=== PATIENT | female | born 1945 | race Caucasian/White ===

== ENCOUNTER → 2018-06-20 09:28 | Outpatient (CLI) | payer MEDICARE, OTHER, SELFPAY | LOC: RAD 09:30 → RESP 10:01 | PROVIDERS: PCP Family Medicine; Visit Provider Podiatrist | DX: Z01.818 Encounter for other preprocedural examination (principal) | CPT/HCPCS: 93005 ==

== ENCOUNTER 2018-07-15 09:33 | Day surgery (SDC) | payer MEDICARE, OTHER, SELFPAY ==
[2018-07-01 09:03] VITALS: BMI 25.2
[2018-07-15] VITALS (9 sets, daily range): BP systolic 124–182; BP diastolic 56–83; PULSE 65–91; RESP 11–18; TEMP 36.4–36.9; O2SAT 95–99; BMI 25.2
[2018-07-15] MEDS: LACTATED RINGERS 1,000 ML 42 ML IV (10:00)
--- NOTE | 2018-07-15 11:28 | PM.PREOP ---
Pre-operative Note Interval Note Pre-op Check: Yes History & Physical Reviewed by Physician Changes: No
[2018-07-15] MEDS: CLINDAMYCIN 600 MG/50 ML PIGGYBACK 50 MG IV (11:32)
--- NOTE | 2018-07-15 12:07 | SUR.OPER ---
Supine on padded OR bed, head on pillow, arms secured on padded arm boards at <90 degrees abduction, legs uncrossed, safety belt at thigh, tape over blanket over right leg, left leg under control of surgeon. Bump under left hip.
[2018-07-15] MEDS: BUPIVACAINE 0.5% (PF) VIAL 30 ML INJ (12:16)
--- NOTE | 2018-07-15 13:09 | SUR.PHASEI ---
pre charted in error time into pacu 1300.
--- NOTE | 2018-07-15 13:18 | PM.OP.1 ---
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 Post-op diagnosis: same Procedure & Clinicians Procedure: Left midfoot exostectomy Left first metatarsophalangeal joint cheilectomy Same procedure as scheduled: Yes Surgeon: Cindy Craft Click Yes if Unassisted: Yes Anesthesia Type: General Operative Notes Closure Type: primary Specimen(s): none sent Estimated Blood Loss (mL): 20 Blood products transfused: none Procedure in detail: Patient was brought to the operating room and placed on the operating table in supine position after induction of general anesthesia the foot and ankle prepped and draped usual aseptic manner injectable anesthesia was performed to the midfoot and great toe joint. After the tourniquet was inflated incision was made over the dorsal aspect of the midfoot just slightly medial to midline over the area of suspected spurring. The incision was deepened through subcutaneous tissues being careful to identify and retract all vital neural and vascular structures. All bleeders were cauterized and ligated as necessary. Immediately there was an enlarged of spur noted at the tarsometatarsal joints 1 and 2. There was some thickening of the overlying ligamentous structures. The ligament was teased away from the underlying spur complex and using sharp debridement the spurs were able to be reduced significantly. The area was rasped and as it was loaded and appeared to be not impinging and certainly reduced in prominence. The area was irrigated with copious amounts of normal sterile saline. Attention was directed to the 1st metatarsophalangeal joint where incision was made over the dorsal medial aspect of the 1st metatarsophalangeal joint incision was deepened through subcutaneous tissues being careful to identify and retract all vital neurovascular structures. All bleeders were cauterized and ligated as necessary. The capsule was entered in the showed some spurring across the base of the proximal phalanx dorsally as well as the head of the metatarsal. This was reduced with a saw and smoothed with a rongeur and rasp the toe was moved and showed good mobility no clicking or grinding or popping. The area was irrigated with copious amounts of normal sterile saline. The tourniquet was deflated and prompt hyperemic response was seen to the foot. Deep closure was performed using 4 0 Vicryl subcutaneous as well, and 3 0 nylon to the skin on both. Dressing was placed over the foot with some light compression and she was transferred to the PACU with vital signs stable. Complications: none Condition: stable Disposition: PACU Plan for aftercare: Following a period of postoperative monitoring the patient be discharged home on written and oral postop instructions including keeping the dressing dry and intact avoiding ambulation to the foot although partial is okay, elevating the foot when seated at home. DVT prevention techniques have been reviewed. Her 1st postoperative visit will be dressing change with evaluation of the suture and likely it will remain at least to the mid foot for a period of 3 weeks time.
--- NOTE | 2018-07-15 14:04 | SUR.PHASEII ---
assumed care from Haleigh d/c instructions discussed with both pt and her . L foot in surgical shoe, feet warm, + capillary refill. ice to area and foot elevated. pt dressed when ready and left when ready and in stable condition.
== END 2018-07-15 14:10 | disposition home or self-care (01) ==
PROVIDERS: PCP Family Medicine; Visit Provider Podiatrist
PROC: (CPT 28289; principal; 2018-07-15 10:45)
DX: M19.072 Primary osteoarthritis, left ankle and foot (principal); I10 Essential (primary) hypertension; Z87.891 Personal history of nicotine dependence
CPT/HCPCS: 28289; 28122; J1100; J2405; J2704; J3010

== ENCOUNTER → 2019-02-01 07:05 | Outpatient (CLI) | payer MEDICARE, OTHER, SELFPAY ==
[2019-02-01 08:16] LABS: Add Manual Diff / Slide Review NO; Basophils Absolute Auto 0 /uL (0-100); Basophils Percent Auto 0.9 % (0-2); Eosinophils Absolute Auto 200 /uL (0-450); Eosinophils Percent Auto 4.7 % (2-4); Hematocrit 39.2 % (36-46); Hemoglobin 12.9 g/dL (12.0-16.0); Lymphocytes Absolute Auto 1000 /uL (1100-4500); Lymphocytes Percent Auto 21.3 % (25-40); Mean Corpuscular HGB Conc 32.8 % (30-36); Mean Corpuscular Hemoglobin 34.7 PG (26-34); Mean Corpuscular Volume 105.8 fL (80-100); Monocytes Absolute Auto 400 /uL (0-900); Neutrophils Absolute Auto 2900 /uL (1500-7000); Neutrophils Percent Auto 65.1 % (50-75); Platelet Count 170 X10^3/uL (150-400); Red Blood Cell Count 3.71 X10^6/uL (4.0-5.2); Red Cell Distribution Width 13.9 % (11.6-14.8); White Blood Cell Count 4.5 X10^3/uL (4.5-11.0)
[2019-02-01 08:29] LABS: BUN Creatinine Ratio 26.7 (6-22); Blood Urea Nitrogen 24 mg/dL (7-17); Calcium 9.4 mg/dL (8.4-10.2); Carbon Dioxide 29 mmol/L (22-32); Chloride 102 mmol/L (98-107); Cholesterol 220 mg/dL (140-199); Estimated Glomerular Filt Rate > 60.0 mL/min (>60); Glucose 88 mg/dL (80-110); HDL Cholesterol 78 mg/dL (40-60); HEMOLYSIS < 15 (0-50); LDL Cholesterol Calculated 107 mg/dL (<100); Potassium 5.1 mmol/L (3.4-5.1); Sodium 137 mmol/L (137-145); Triglycerides 174 mg/dL (35-150)
[2019-02-01 08:47] LABS: Vitamin D 25 Hydroxy (D3) 41.3 ng/mL (30.0-100.0)
[2019-02-01 08:49] LABS: Free T3, Triiodothyronine Free 5.41 pg/mL (2.77-5.27)
[2019-02-01 09:02] LABS: Thyroid Stimulating Hormone 1.72 uIU/mL (0.47-4.68)
== END ==
PROVIDERS: PCP Student in an Organized Health Care Education/Training Program; Visit Provider Student in an Organized Health Care Education/Training Program
DX: E03.9 Hypothyroidism, unspecified (principal); I10 Essential (primary) hypertension; E55.9 Vitamin D deficiency, unspecified; Z13.220 Encounter for screening for lipoid disorders
CPT/HCPCS: 36415; 80048; 80061; 82306; 84439; 84443; 84481; 85025

== ENCOUNTER → 2019-02-03 13:03 | Outpatient (CLI) | payer MEDICARE, OTHER, SELFPAY | PROVIDERS: PCP Student in an Organized Health Care Education/Training Program; Visit Provider Student in an Organized Health Care Education/Training Program | DX: Z13.820 Encounter for screening for osteoporosis (principal); M85.852 Other specified disorders of bone density and structure, left thigh; Z78.0 Asymptomatic menopausal state; Z85.3 Personal history of malignant neoplasm of breast; Z90.722 Acquired absence of ovaries, bilateral; E07.9 Disorder of thyroid, unspecified | CPT/HCPCS: 77080 ==

== ENCOUNTER → 2019-04-11 12:09 | Outpatient (CLI) | payer MEDICARE, OTHER, SELFPAY ==
--- NOTE | 2019-04-11 | DI.MG.S_ITS ---
BILATERAL DIGITAL SCREENING MAMMOGRAM 3D/2D WITH CAD: 04/11/2019 CLINICAL: Routine screening. Comparison is made to exams dated: 04/11/2019 mammogram, 04/09/2018 mammogram, and 03/29/2017 mammogram - [facility]. The tissue of both breasts is heterogeneously dense. This may lower the sensitivity of mammography. Current study was also evaluated with a Computer Aided Detection (CAD) system. There are benign calcifications in both breasts. There also is a benign biopsy clip in the left breast. No significant masses, calcifications, or other findings are seen in either breast. There has been no significant interval change. IMPRESSION: There is no mammographic evidence of malignancy. A 1 year screening mammogram is recommended. This exam was interpreted at Station ID: [id number]. NOTE: For mammograms, a report in lay terms will be sent to the patient. Approximately 15% of breast malignancies will not be visualized mammographically. In the management of a palpable breast mass, a negative mammogram must not discourage biopsy of a clinically suspicious lesion. Electronically Signed By: Nicanor rivas/haroon:04/11/2019 18:16:45 copy to: CEDRIC LARES letter sent: Normal Exam ACR BI-RADS Category 2: Benign Finding(s) 3342F
== END ==
PROVIDERS: PCP Student in an Organized Health Care Education/Training Program; Visit Provider Student in an Organized Health Care Education/Training Program
DX: Z12.31 Encounter for screening mammogram for malignant neoplasm of breast (principal)
CPT/HCPCS: 77063; 77067

== ENCOUNTER → 2019-05-04 07:02 | Outpatient (CLI) | payer MEDICARE, OTHER, SELFPAY ==
[2019-05-04 08:48] LABS: Alanine Aminotransferase 30 IU/L (9-52); Albumin 4.5 g/dL (3.5-5.0); Albumin Globulin Ratio 1.9 (1.0-2.8); Alkaline Phosphatase 93 U/L (38-126); Aspartate Aminotransferase 37 IU/L (14-36); Bilirubin Total 0.5 mg/dL (0.2-1.3); Bilirubin Unconjugated 0.3 mg/dL (0.0-1.1); Cholesterol 154 mg/dL (140-199); Globulin 2.4 g/dL (1.7-4.1); HDL Cholesterol 64 mg/dL (40-60); HEMOLYSIS < 15 (0-50); LDL Cholesterol Calculated 60 mg/dL (<100); Total Protein 6.9 g/dL (6.3-8.2); Triglycerides 148 mg/dL (35-150)
== END ==
PROVIDERS: PCP Student in an Organized Health Care Education/Training Program; Visit Provider Student in an Organized Health Care Education/Training Program
DX: E78.2 Mixed hyperlipidemia (principal); Z79.899 Other long term (current) drug therapy
CPT/HCPCS: 36415; 80061; 80076

== ENCOUNTER 2019-09-04 09:00 | Outpatient (RCR) | payer MEDICARE, OTHER, SELFPAY ==
--- NOTE | 2019-06-28 14:17 | PT.OIE ---
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) Osteoarthritis (Chronic) Osteoporosis (Chronic) Right foot drop (Chronic) Seasonal allergic reaction (Chronic) Thyroid disease (Chronic) Gout (Resolved) Past Surgical History (Last Updated 12/20/18 @ 20:54 by Jennifer Brooks) Dupuytrens contracture (Resolved ~2009) History of arthroplasty (Resolved ~2009) History of esophagogastroduodenoscopy (EGD) (Resolved) History of hysterectomy (Resolved) History of removal of cyst (Resolved) History of total right hip arthroplasty (Resolved) S/P BSO (bilateral salpingo-oophorectomy) (Resolved ~1981) Status post colonoscopy (Resolved ~2012) History of bilateral salpingo-oophorectomy (BSO) (~1975) History of spinal fusion (~1992) Status post breast biopsy (~1993) Status post breast reduction (~2012) Status post hysterectomy (~1975) Provider Visit Care Team Role Provider Type Alex Townsend MD Attending Provider Physician Primary Care Provider Specialty: Internal Medicine Address: [address] [place] [address] Email: Physical Therapy Initial Evaluation PT-OP-A Visit Information Start: 06/27/19 11:16 Freq: Status: Active Protocol: Document 06/27/19 11:17 [facility] (Rec: 06/27/19 11:27 [facility] [id number]) Out-Patient Physical Therapy Visit Information Visit Information Visit Type Initial Evaluation Visit Note 74 year old female with c/o L posterior gluteal and buttocks pain. She has had these symptoms off and on for the past few years and has had PT in the past which was helpful. In June 2018 she underwent left foot surgery to remove bone spurs. She had to use a rolling scooter during this time of non weight bearing. Symptoms in her left posterior hip started to worsen following the surgery and recovery afterwards Visit Start Time 11:15 Visit Stop Time 12:00 Total Visit Minutes 45 Visit Number 1 Evaluation Information Evaluation Date 06/27/19 PT-OP-B Current Condition Start: 06/27/19 11:16 Freq: Status: Active Protocol: Document 06/27/19 11:17 [facility] (Rec: 06/27/19 11:27 [facility] [id number]) Current Condition History of Current Condition Onset Date a few years onset History of Current Condition A few years ago Camryn [place], saw Dr. Rodriguez for the left knee as he had done her right KODY 2009, she had cortisone injections in the left knee, She was told to try PT for her hip. She currently walks 4 miles per day, it got better and then worse and then she went to PT again which helped. Since that time she underwent foot surgery on the left foot to remove bone spurs in June 2018. She used a scooter with her L LE resting on it for a period of 3 weeks. Her symptoms of posterior buttock pain have progressively worsened to where she cant sleep in the left side, cant walk more than 1/4 mile due to pain. She has to sit on ice following walking. Dr. Fish wants her to do cortisone injections. She has a appointment 07/26/[address] Kaur assistant speech language pathologist for a cortisone injetion. She is taking Alieve 2 times per day. Her pain is rated 7/10 in the posterior gluteals. She experiences increased pain with hip flexion. She reports walking up inclines is horrible and with inclines her pain can radiate to the anterior hip. She has a Hx of L5-S 1 herniated 1992 and surgery in then rehernaited in and surgery. Other past medical history includes thyroid disorder and osteoporosis. Treatment Goals Patient/Caregiver Goals The patients goals include decreasing pain and improving her ability to walk. She likes to go for regular walks for exercise and this is very impaired at this time. Prior Functional Status Baseline Function- ADL's Independent Baseline Function- Mobility Independent Current Functional Impairments (Reported) Functional Limitations- Other moderate difficulty walking 2 blocks, quite a bit of difficulty and pain walking a mile, moderate difficulty wtanding and sitting for a hour, unable to sleep on the left side due to pain PT-OP-F Manual Assessment Start: 06/27/19 11:16 Freq: Status: Active Protocol: Document 06/27/19 11:15 [facility] (Rec: 06/28/19 12:57 [facility] [email or web address]) Manual Assessments Soft Tissue Assessment Soft Tissue Mobility Assessment tightness of the piriformis, ITB and quadriceps on the left Joint Mobility Assessment Joint Mobility Assessment hypomobility of the left posterior hip capsule with decreased posterior glide Other Manual Assessments Other Manual Assessments Right leg longer in supine ( hx of right KODY) PT-OP-G Mobility & Gait Start: 06/27/19 11:16 Freq: Status: Active Protocol: Document 06/27/19 11:15 [facility] (Rec: 06/28/19 12:57 [facility] [email or web address]) OP Mobility Evaluation Bed Mobility Rolling pain with rolling on to her side and with sidelying to sit Supine to and from Sit painful but able to do the transfer Functional Movements Other Functional Movements pain with walking up/down stairs, needs to perform step to step pattern OP Gait Assessment Gait Gait Assistance Required: Independent Able to Maintain Weight Bearing Status Yes During Gait Gait Deviations General Gait Pattern Antalgic Decreased Stride Length Flexed Trunk Factors Limiting Gait Function Factors Limiting Gait Function Decreased Activity Tolerance Decreased Strength Pain Comments Gait Comments pain with gait in the left hip , I talked to Camryn today about using a walking stick or cane for her walks to off load her hip at this time until pain subsides Stair Climbing Evaluation Technique/Endurance Stair Climbing Direction Ascend and Descend Stair Climbing Technique Step to Step Comments Stair Climbing Comments pain with going up and down stairs in the left hip PT-OP-J Posture/Palpation/Skin Start: 06/27/19 11:16 Freq: Status: Active Protocol: Document 06/27/19 11:15 [facility] (Rec: 06/28/19 12:57 [facility] [email or web address]) Posture Evaluation Position Standing Evaluation View Lateral Head/C-Spine Posture Flexed Weight Distribution Weight Shifted Anterior Comments Posture Comments pt tends to stand with a forward lean Palpation Assessment Location Three Palpation Location left hip greater trochanter Palpation Findings Tenderness Two Palpation Location left piriformis Palpation Findings Soft Tissue Tightness Muscle Guarding Tenderness One Palpation Location left ITB proximal insertion Palpation Findings Soft Tissue Tightness Tenderness PT-OP-K Range of Motion Start: 06/27/19 11:16 Freq: Status: Active Protocol: Document 06/27/19 11:15 [facility] (Rec: 06/28/19 12:57 [facility] [email or web address]) Hip Goniometric Range of Motion Hip Right Hip ROM WFL No Flexion w/Knee Flexed 100 Straight Leg Raise 70 Extension 5 Left Hip ROM WFL No Testing Position Supine Flexion w/Knee Flexed 90 Straight Leg Raise 60 Extension 0 Hip ROM Limitations Hip ROM Limitations Soft Tissue Tightness Comments limited ROM into hip flexion left, tightness of the left posterior capsule, left iliopsoas tightness with + alessandro test , + Carrol test for ITB tightness PT-OP-L Special Tests Start: 06/27/19 11:16 Freq: Status: Active Protocol: Document 06/27/19 11:15 [facility] (Rec: 06/28/19 12:57 [facility] [email or web address]) Special Tests Hip Special Tests Obers test Test Results + left Comments ITB tightness Trendelenberg Test Results + Left Alessandro Test Results + Left PT-OP-M Strength Start: 06/27/19 11:16 Freq: Status: Active Protocol: Document 06/27/19 11:15 [facility] (Rec: 06/28/19 14:16 [facility] [email or web address]) Hip Strength Hip Manual Muscle Testing Right Flexion (L2) 4+ Good+ Extension (S1) 4 Good Abduction 4 Good External Rotation 4 Good Left Flexion (L2) 4 Good Extension (S1) 2+ Poor+ Abduction 2+ Poor+ External Rotation 2+ Poor+ Comments it is difficult for Camryn to activate the left gluteals. There is a visable difference in her gluteal muscle from the left to the right as she is atrophied on the left side. PT-OP-Q Treatments Start: 06/27/19 11:16 Freq: Status: Active Protocol: Document 06/27/19 11:15 [facility] (Rec: 06/28/19 14:16 [facility] [email or web address]) Therapeutic Exercises Supine Exercises 2 Supine Exercise Name single knee to chest stretch Side bilateral Reps/Minutes 2 x 30 sec + 1 Supine Exercise Name ITB stretch with a strap Side bilateral Reps/Minutes 2 x 30 sec+ Sidelying Exercises 1 Sidelying Exercise Name sidelying quad stretch Standing Exercises 1 Standing Exercise Name standing quad stretch using a chair for her foot Side bilateral Manual Therapy Treatment Soft Tissue Mobilization 1 Body Location left ITB, left piriformis Mobilization Type Myofascial Release Intensity/Depth Superficial Body Position Sidelying Comments MFR for left hip ITB tightness that is pulling on the left hip. Good tolerance for treatment today PT-OP-T Assessment and Plan Start: 06/27/19 11:16 Freq: Status: Active Protocol: Document 06/27/19 11:15 [facility] (Rec: 06/28/19 14:16 [facility] [email or web address]) Physical Therapy Assessment Rehab Potential Rehabilitation Potential Good Evaluation Complexity Number of Personal Factors/Comorbidities 0 Number of Body Systems Impaired 1-2 Clinical Presentation at Evaluation Stable Impairments Impairments Activity Tolerance Functional Activities Functional Mobility Gait Pain ROM Soft Tissue Mobility Strength Goals Five Impairment pain to palpation left bursa, greater trochanter, posterior gluteals Short Term Goal (STG) Camryn no longer c/o pain to palpation over the left bursa , greater trochanter, or gluteal musculature STG Duration 4 weeks Four Impairment Tightness of the ITB, piriformis, iliopsoas, quads on the left Short Term Goal (STG) Camryn is educated in a home stretching program to address the tightness in the left hip STG Duration 2-3 weeks Shop Tech Goal (LTG) Improve full painfree hip rom and improve length of the surrounding muscles to decrease pain LTG Duration 8 weeks Three Impairment Decreased left hip strength Senior Care Goal (LTG) Improve strength of the left hip to 4/5 or greater, especially the gluteals to improve support and improve function. Camryn is independent with a home exercise program for hip strengthening LTG Duration 8 weeks Two Impairment limited walking distance to 2 blocks Shop Tech Goal (LTG) Camryn is able to return to her goal of walking 2-3 miles without a increase in pain symptoms LTG Duration 8 weeks+ One Impairment L hip pain rated 7/10, worse walking and with inclines Short Term Goal (STG) Pt is using a walking stick or cane in the right hand to reduce pressure on the left hip and this helps to decrease pain from 7/10 to 4-5/10 STG Duration 3-4 weeks Senior Care Goal (LTG) With physical therapy manual techniques and hip stretching/ strengthening Camryn reports a reduction of pain to 2/10 or less. Assessment Summary Assessment Camryn presents to physical therapy today with left sided posterior hip pain in the gluteal region. She has experienced pain in this region before and has had PT which seemed to help her. This re-aggravation though is worse than it has been. Camryn had left foot surgery in June 2018 and she was non weight bearing on the left x 3 weeks using a scooter. She then progressed to a cane but it was after this time her left hip started hurting again. She likes to walk for exercise and she is very limited in how far she can walk right now due to pain. Her pain is rated 7/10 in the left hip. I did talk with Camryn today about using a walking stick or cane in the right hand for now to take off some of the pressure with walking and help to relieve pain until her symptoms resolve. With examination she is tender to palpation at the greater trochanter and bursea of the left hip, there is tightness in the ITB and piriformis muscles. Posterior capsule is tight. She is limited in strength of the left gluteal muscles and there is a visable difference in muscle bulk from the left to the right gluteal region when Camryn is laying in prone. She reports feeling as if it is difficult for her to activate her glutes. The iliopsoas and quads are also tight on the left as compared to the right. I did start with gentle stretches and MFR over the ITB today and Camryn tolerated this well. She is a good candidate for PT. Physical Therapy Plan Frequency and Duration Frequency of Treatment 2x/Week Duration of Treatment 8 Plan of Care Start Date 06/27/19 Plan of Care End Date 08/22/19 Therapeutic Interventions Therapeutic Interventions Home Exercise Program Joint Mobilizations Manual Therapy Patient/Caregiver Education Self-Care/Home Management Soft Tissue Mobilization Taping Therapeutic Exercises Modalities Cold Pack/Ice Massage Ultrasound Next Visit Focus/Plan Next Note Type Treatment Note Next Visit Plan review stretches for the ITB and quads, add in piriformis stretch and begin to start gluteus medius strengthening as tolerated, manual techniques to reduce tightness of the left ITB and piriformis
--- NOTE | 2019-06-29 18:43 | PT.OTN ---
Current Diagnoses Pain in left hip (06/29/19) Physical Therapy Treatment Note PT-OP-A Visit Information Start: 06/27/19 11:16 Freq: Status: Active Protocol: Document 06/29/19 14:30 HH (Rec: 06/29/19 18:43 HH [email or web address]) Out-Patient Physical Therapy Visit Information Visit Information Visit Type Treatment Note Visit Start Time 14:30 Visit Stop Time 15:15 Total Visit Minutes 45 Visit Number 0 PT-OP-B Current Condition Start: 06/27/19 11:16 Freq: Status: Active Protocol: Document 06/27/19 11:17 AMH (Rec: 06/27/19 11:27 AMH [id number]) Current Condition History of Current Condition Onset Date a few years onset History of Current Condition A few years ago Camryn [place], saw Dr. Rodriguez for the left knee as he had done her right KODY 2009, she had cortisone injections in the left knee, She was told to try PT for her hip. She currently walks 4 miles per day, it got better and then worse and then she went to PT again which helped. Since that time she underwent foot surgery on the left foot to remove bone spurs in June 2018. She used a scooter with her L LE resting on it for a period of 3 weeks. Her symptoms of posterior buttock pain have progressively worsened to where she cant sleep in the left side, cant walk more than 1/4 mile due to pain. She has to sit on ice following walking. Dr. Fish wants her to do cortisone injections. She has a appointment 07/26/[address] Kaur assistant dean for a cortisone injetion. She is taking Alieve 2 times per day. Her pain is rated 7/10 in the posterior gluteals. She experiences increased pain with hip flexion. She reports walking up inclines is horrible and with inclines her pain can radiate to the anterior hip. She has a Hx of L5-S 1 herniated 1992 and surgery in then rehernaited in and surgery. Other past medical history includes thyroid disorder and osteoporosis. Treatment Goals Patient/Caregiver Goals The patients goals include decreasing pain and improving her ability to walk. She likes to go for regular walks for exercise and this is very impaired at this time. Prior Functional Status Baseline Function- ADL's Independent Baseline Function- Mobility Independent Current Functional Impairments (Reported) Functional Limitations- Other moderate difficulty walking 2 blocks, quite a bit of difficulty and pain walking a mile, moderate difficulty wtanding and sitting for a hour, unable to sleep on the left side due to pain PT-OP-C Subjective Start: 06/27/19 11:16 Freq: Status: Active Protocol: Document 06/29/19 14:30 HH (Rec: 06/29/19 18:43 HH [email or web address]) OP-PT Subjective Patient Comments Patient Comments Soreness at my left hip and i have been doing my HEP stretches PT-OP-F Manual Assessment Start: 06/27/19 11:16 Freq: Status: Active Protocol: Document 06/27/19 11:15 AMH (Rec: 06/28/19 12:57 AMH [email or web address]) Manual Assessments Soft Tissue Assessment Soft Tissue Mobility Assessment tightness of the piriformis, ITB and quadriceps on the left Joint Mobility Assessment Joint Mobility Assessment hypomobility of the left posterior hip capsule with decreased posterior glide Other Manual Assessments Other Manual Assessments Right leg longer in supine ( hx of right KODY) PT-OP-G Mobility & Gait Start: 06/27/19 11:16 Freq: Status: Active Protocol: Document 06/27/19 11:15 AMH (Rec: 06/28/19 12:57 AMH [email or web address]) OP Mobility Evaluation Bed Mobility Rolling pain with rolling on to her side and with sidelying to sit Supine to and from Sit painful but able to do the transfer Functional Movements Other Functional Movements pain with walking up/down stairs, needs to perform step to step pattern OP Gait Assessment Gait Gait Assistance Required: Independent Able to Maintain Weight Bearing Status Yes During Gait Gait Deviations General Gait Pattern Antalgic Decreased Stride Length Flexed Trunk Factors Limiting Gait Function Factors Limiting Gait Function Decreased Activity Tolerance Decreased Strength Pain Comments Gait Comments pain with gait in the left hip , I talked to Camryn today about using a walking stick or cane for her walks to off load her hip at this time until pain subsides Stair Climbing Evaluation Technique/Endurance Stair Climbing Direction Ascend and Descend Stair Climbing Technique Step to Step Comments Stair Climbing Comments pain with going up and down stairs in the left hip PT-OP-J Posture/Palpation/Skin Start: 06/27/19 11:16 Freq: Status: Active Protocol: Document 06/27/19 11:15 AMH (Rec: 06/28/19 12:57 AMH [email or web address]) Posture Evaluation Position Standing Evaluation View Lateral Head/C-Spine Posture Flexed Weight Distribution Weight Shifted Anterior Comments Posture Comments pt tends to stand with a forward lean Palpation Assessment Location Three Palpation Location left hip greater trochanter Palpation Findings Tenderness Two Palpation Location left piriformis Palpation Findings Soft Tissue Tightness Muscle Guarding Tenderness One Palpation Location left ITB proximal insertion Palpation Findings Soft Tissue Tightness Tenderness PT-OP-K Range of Motion Start: 06/27/19 11:16 Freq: Status: Active Protocol: Document 06/27/19 11:15 AMH (Rec: 06/28/19 12:57 AMH [email or web address]) Hip Goniometric Range of Motion Hip Right Hip ROM WFL No Flexion w/Knee Flexed 100 Straight Leg Raise 70 Extension 5 Left Hip ROM WFL No Testing Position Supine Flexion w/Knee Flexed 90 Straight Leg Raise 60 Extension 0 Hip ROM Limitations Hip ROM Limitations Soft Tissue Tightness Comments limited ROM into hip flexion left, tightness of the left posterior capsule, left iliopsoas tightness with + alessandro test , + Carrol test for ITB tightness PT-OP-L Special Tests Start: 06/27/19 11:16 Freq: Status: Active Protocol: Document 06/27/19 11:15 AMH (Rec: 06/28/19 12:57 AMH [email or web address]) Special Tests Hip Special Tests Obers test Test Results + left Comments ITB tightness Trendelenberg Test Results + Left Alessandro Test Results + Left PT-OP-M Strength Start: 06/27/19 11:16 Freq: Status: Active Protocol: Document 06/27/19 11:15 AMH (Rec: 06/28/19 14:16 AMH [email or web address]) Hip Strength Hip Manual Muscle Testing Right Flexion (L2) 4+ Good+ Extension (S1) 4 Good Abduction 4 Good External Rotation 4 Good Left Flexion (L2) 4 Good Extension (S1) 2+ Poor+ Abduction 2+ Poor+ External Rotation 2+ Poor+ Comments it is difficult for Camryn to activate the left gluteals. There is a visable difference in her gluteal muscle from the left to the right as she is atrophied on the left side. PT-OP-Q Treatments Start: 06/27/19 11:16 Freq: Status: Active Protocol: Document 06/29/19 14:30 HH (Rec: 06/29/19 18:43 [email or web address]) Therapeutic Exercises Supine Exercises supine nerve glide Supine Exercise Name SLR + DF Side bilateral Reps/Minutes 8 x 2 2 Supine Exercise Name single knee to chest stretch Side bilateral Reps/Minutes 2 x 30 sec + Standing Exercises side step Equipment Used hurdles Reps/Minutes 5 rounds Comments cues to prevent R hip drop step up Side left Equipment Used 2 inch box Reps/Minutes 10 x 3 Comments cues to prevent R hip drop. single leg stance Side left Reps/Minutes 5 s x 5 set step over gait Standing Exercise Name within // bar Side bilateral Equipment Used hurdles Reps/Minutes 6 rounds Comments cues on heel strikes and prevent hip drop. step to Standing Exercise Name within // bar Side bilateral Equipment Used hurdles Reps/Minutes 6 rounds Comments cues on heel strikes and prevent hip drop. PT-OP-T Assessment and Plan Start: 06/27/19 11:16 Freq: Status: Active Protocol: Document 06/29/19 14:30 HH (Rec: 06/29/19 18:43 [email or web address]) Physical Therapy Assessment Assessment Summary Assessment pt demonstrates single leg balance : R= .10 s and L= 2s pre treatment. tx focused on single leg balance, gait training and step up to faciltiate L hip stabilizers activation. Pt denies discomfort and showed improved single leg balance on LLE > 10 s Physical Therapy Plan Next Visit Focus/Plan Next Note Type Treatment Note Next Visit Plan cont single leg balance ex as pina step up with hip control review stretches for the ITB and quads, add in piriformis stretch and begin to start gluteus medius strengthening as tolerated, manual techniques to reduce tightness of the left ITB and piriformis
--- NOTE | 2019-07-04 17:05 | PT.OTN ---
Current Diagnoses Pain in left hip (07/04/19) Physical Therapy Treatment Note PT-OP-A Visit Information Start: 06/27/19 11:16 Freq: Status: Active Protocol: Document 07/04/19 14:30 HH (Rec: 07/04/19 17:05 HH [email or web address]) Out-Patient Physical Therapy Visit Information Visit Information Visit Type Treatment Note Visit Start Time 14:30 Visit Stop Time 15:10 Total Visit Minutes 40 Visit Number 0 PT-OP-B Current Condition Start: 06/27/19 11:16 Freq: Status: Active Protocol: Document 06/27/19 11:17 AMH (Rec: 06/27/19 11:27 AMH [id number]) Current Condition History of Current Condition Onset Date a few years onset History of Current Condition A few years ago Camryn [place], saw Dr. Rodriguez for the left knee as he had done her right KODY 2009, she had cortisone injections in the left knee, She was told to try PT for her hip. She currently walks 4 miles per day, it got better and then worse and then she went to PT again which helped. Since that time she underwent foot surgery on the left foot to remove bone spurs in June 2018. She used a scooter with her L LE resting on it for a period of 3 weeks. Her symptoms of posterior buttock pain have progressively worsened to where she cant sleep in the left side, cant walk more than 1/4 mile due to pain. She has to sit on ice following walking. Dr. Fish wants her to do cortisone injections. She has a appointment 07/26/[address] Kaur vet assistant for a cortisone injetion. She is taking Alieve 2 times per day. Her pain is rated 7/10 in the posterior gluteals. She experiences increased pain with hip flexion. She reports walking up inclines is horrible and with inclines her pain can radiate to the anterior hip. She has a Hx of L5-S 1 herniated 1992 and surgery in then rehernaited in and surgery. Other past medical history includes thyroid disorder and osteoporosis. Treatment Goals Patient/Caregiver Goals The patients goals include decreasing pain and improving her ability to walk. She likes to go for regular walks for exercise and this is very impaired at this time. Prior Functional Status Baseline Function- ADL's Independent Baseline Function- Mobility Independent Current Functional Impairments (Reported) Functional Limitations- Other moderate difficulty walking 2 blocks, quite a bit of difficulty and pain walking a mile, moderate difficulty wtanding and sitting for a hour, unable to sleep on the left side due to pain PT-OP-C Subjective Start: 06/27/19 11:16 Freq: Status: Active Protocol: Document 07/04/19 14:30 HH (Rec: 07/04/19 17:05 HH [email or web address]) OP-PT Subjective Patient Comments Patient Comments I overdid my hip stretch and strained my muscles. I also felt sore after last visit but i have been working on my balancing ex. It has been getting a lot better. PT-OP-F Manual Assessment Start: 06/27/19 11:16 Freq: Status: Active Protocol: Document 06/27/19 11:15 AMH (Rec: 06/28/19 12:57 AMH [email or web address]) Manual Assessments Soft Tissue Assessment Soft Tissue Mobility Assessment tightness of the piriformis, ITB and quadriceps on the left Joint Mobility Assessment Joint Mobility Assessment hypomobility of the left posterior hip capsule with decreased posterior glide Other Manual Assessments Other Manual Assessments Right leg longer in supine ( hx of right KODY) PT-OP-G Mobility & Gait Start: 06/27/19 11:16 Freq: Status: Active Protocol: Document 06/27/19 11:15 AMH (Rec: 06/28/19 12:57 AMH [email or web address]) OP Mobility Evaluation Bed Mobility Rolling pain with rolling on to her side and with sidelying to sit Supine to and from Sit painful but able to do the transfer Functional Movements Other Functional Movements pain with walking up/down stairs, needs to perform step to step pattern OP Gait Assessment Gait Gait Assistance Required: Independent Able to Maintain Weight Bearing Status Yes During Gait Gait Deviations General Gait Pattern Antalgic Decreased Stride Length Flexed Trunk Factors Limiting Gait Function Factors Limiting Gait Function Decreased Activity Tolerance Decreased Strength Pain Comments Gait Comments pain with gait in the left hip , I talked to Camryn today about using a walking stick or cane for her walks to off load her hip at this time until pain subsides Stair Climbing Evaluation Technique/Endurance Stair Climbing Direction Ascend and Descend Stair Climbing Technique Step to Step Comments Stair Climbing Comments pain with going up and down stairs in the left hip PT-OP-J Posture/Palpation/Skin Start: 06/27/19 11:16 Freq: Status: Active Protocol: Document 06/27/19 11:15 AMH (Rec: 06/28/19 12:57 AMH [email or web address]) Posture Evaluation Position Standing Evaluation View Lateral Head/C-Spine Posture Flexed Weight Distribution Weight Shifted Anterior Comments Posture Comments pt tends to stand with a forward lean Palpation Assessment Location Three Palpation Location left hip greater trochanter Palpation Findings Tenderness Two Palpation Location left piriformis Palpation Findings Soft Tissue Tightness Muscle Guarding Tenderness One Palpation Location left ITB proximal insertion Palpation Findings Soft Tissue Tightness Tenderness PT-OP-K Range of Motion Start: 06/27/19 11:16 Freq: Status: Active Protocol: Document 06/27/19 11:15 AMH (Rec: 06/28/19 12:57 AMH [email or web address]) Hip Goniometric Range of Motion Hip Right Hip ROM WFL No Flexion w/Knee Flexed 100 Straight Leg Raise 70 Extension 5 Left Hip ROM WFL No Testing Position Supine Flexion w/Knee Flexed 90 Straight Leg Raise 60 Extension 0 Hip ROM Limitations Hip ROM Limitations Soft Tissue Tightness Comments limited ROM into hip flexion left, tightness of the left posterior capsule, left iliopsoas tightness with + alessandro test , + Carrol test for ITB tightness PT-OP-L Special Tests Start: 06/27/19 11:16 Freq: Status: Active Protocol: Document 06/27/19 11:15 AMH (Rec: 06/28/19 12:57 AMH [email or web address]) Special Tests Hip Special Tests Obers test Test Results + left Comments ITB tightness Trendelenberg Test Results + Left Alessandro Test Results + Left PT-OP-M Strength Start: 06/27/19 11:16 Freq: Status: Active Protocol: Document 06/27/19 11:15 AMH (Rec: 06/28/19 14:16 AMH [email or web address]) Hip Strength Hip Manual Muscle Testing Right Flexion (L2) 4+ Good+ Extension (S1) 4 Good Abduction 4 Good External Rotation 4 Good Left Flexion (L2) 4 Good Extension (S1) 2+ Poor+ Abduction 2+ Poor+ External Rotation 2+ Poor+ Comments it is difficult for Camryn to activate the left gluteals. There is a visable difference in her gluteal muscle from the left to the right as she is atrophied on the left side. PT-OP-Q Treatments Start: 06/27/19 11:16 Freq: Status: Active Protocol: Document 07/04/19 14:30 (Rec: 07/04/19 17:05 [email or web address]) Therapeutic Exercises Supine Exercises piriformis stretch Supine Exercise Name passive hip adduction Side left Reps/Minutes 10secs hold x 5 2 Supine Exercise Name single knee to chest stretch Side bilateral Reps/Minutes 2 x 30 sec + Standing Exercises side step Equipment Used hurdles Reps/Minutes 5 rounds Comments cues to prevent R hip drop step up Side left Equipment Used 2 inch box Reps/Minutes 10 x 3 Comments cues to prevent R hip drop. single leg stance Side left Reps/Minutes 5 s x 5 set step over gait Standing Exercise Name within // bar Side bilateral Equipment Used hurdles Reps/Minutes 6 rounds Comments cues on heel strikes and prevent hip drop. step to Standing Exercise Name within // bar Side bilateral Equipment Used hurdles Reps/Minutes 6 rounds Comments cues on heel strikes and prevent hip drop. Manual Therapy Treatment Manual Techniques seated sciatic nerve glide Body Position Sitting Reps/Duration 10 x2 Comments with knee ext and ankle DF sciatic nerve glide 1 Type hip at 90, knee ext and ankle DF Body Position Supine Reps/Duration 10 x2 PT-OP-T Assessment and Plan Start: 06/27/19 11:16 Freq: Status: Active Protocol: Document 07/04/19 14:30 (Rec: 07/04/19 17:05 [email or web address]) Physical Therapy Assessment Goals Five Impairment pain to palpation left bursa, greater trochanter, posterior gluteals Short Term Goal (STG) Camryn no longer c/o pain to palpation over the left bursa , greater trochanter, or gluteal musculature STG Duration 4 weeks Four Impairment Tightness of the ITB, piriformis, iliopsoas, quads on the left Short Term Goal (STG) Camryn is educated in a home stretching program to address the tightness in the left hip STG Duration 2-3 weeks Usp Goal (LTG) Improve full painfree hip rom and improve length of the surrounding muscles to decrease pain LTG Duration 8 weeks Three Impairment Decreased left hip strength Telecommunications Consultant Goal (LTG) Improve strength of the left hip to 4/5 or greater, especially the gluteals to improve support and improve function. Camryn is independent with a home exercise program for hip strengthening LTG Duration 8 weeks Two Impairment limited walking distance to 2 blocks Telecommunications Consultant Goal (LTG) Camryn is able to return to her goal of walking 2-3 miles without a increase in pain symptoms LTG Duration 8 weeks+ One Impairment L hip pain rated 7/10, worse walking and with inclines Short Term Goal (STG) Pt is using a walking stick or cane in the right hand to reduce pressure on the left hip and this helps to decrease pain from 7/10 to 4-5/10 STG Duration 3-4 weeks Telecommunications Consultant Goal (LTG) With physical therapy manual techniques and hip stretching/ strengthening Camryn reports a reduction of pain to 2/10 or less. Assessment Summary Assessment Pt reports slight soreness at her L hip at the end of session. However, her SLS improves to ~15 to 20 secs on each LE. Improved performance on hurdles also noted. Physical Therapy Plan Next Visit Focus/Plan Next Note Type Treatment Note Next Visit Plan cont single leg balance ex as pina step up with hip control review stretches for the ITB and quads, add in piriformis stretch and begin to start gluteus medius strengthening as tolerated, manual techniques to reduce tightness of the left ITB and piriformis
--- NOTE | 2019-07-06 16:21 | PT.OTN ---
Current Diagnoses Pain in left hip (07/06/19) Physical Therapy Treatment Note PT-OP-A Visit Information Start: 06/27/19 11:16 Freq: Status: Active Protocol: Document 07/06/19 14:30 HH (Rec: 07/06/19 16:19 HH [email or web address]) Out-Patient Physical Therapy Visit Information Visit Information Visit Type Treatment Note Visit Start Time 14:30 Visit Stop Time 15:10 Total Visit Minutes 40 Visit Number 4 PT-OP-B Current Condition Start: 06/27/19 11:16 Freq: Status: Active Protocol: Document 06/27/19 11:17 AMH (Rec: 06/27/19 11:27 AMH [id number]) Current Condition History of Current Condition Onset Date a few years onset History of Current Condition A few years ago Camryn [place], saw Dr. Rodriguez for the left knee as he had done her right KODY 2009, she had cortisone injections in the left knee, She was told to try PT for her hip. She currently walks 4 miles per day, it got better and then worse and then she went to PT again which helped. Since that time she underwent foot surgery on the left foot to remove bone spurs in June 2018. She used a scooter with her L LE resting on it for a period of 3 weeks. Her symptoms of posterior buttock pain have progressively worsened to where she cant sleep in the left side, cant walk more than 1/4 mile due to pain. She has to sit on ice following walking. Dr. Fish wants her to do cortisone injections. She has a appointment 07/26/[address] Kaur assistant plant manager for a cortisone injetion. She is taking Alieve 2 times per day. Her pain is rated 7/10 in the posterior gluteals. She experiences increased pain with hip flexion. She reports walking up inclines is horrible and with inclines her pain can radiate to the anterior hip. She has a Hx of L5-S 1 herniated 1992 and surgery in then rehernaited in and surgery. Other past medical history includes thyroid disorder and osteoporosis. Treatment Goals Patient/Caregiver Goals The patients goals include decreasing pain and improving her ability to walk. She likes to go for regular walks for exercise and this is very impaired at this time. Prior Functional Status Baseline Function- ADL's Independent Baseline Function- Mobility Independent Current Functional Impairments (Reported) Functional Limitations- Other moderate difficulty walking 2 blocks, quite a bit of difficulty and pain walking a mile, moderate difficulty wtanding and sitting for a hour, unable to sleep on the left side due to pain PT-OP-C Subjective Start: 06/27/19 11:16 Freq: Status: Active Protocol: Document 07/06/19 14:30 HH (Rec: 07/06/19 16:19 HH [email or web address]) OP-PT Subjective Patient Comments Patient Comments I walked 2 miles today with slopes and it did not bother my L hip. Aundrea been doing my single leg stance ex and it helps. PT-OP-F Manual Assessment Start: 06/27/19 11:16 Freq: Status: Active Protocol: Document 06/27/19 11:15 AMH (Rec: 06/28/19 12:57 AMH [email or web address]) Manual Assessments Soft Tissue Assessment Soft Tissue Mobility Assessment tightness of the piriformis, ITB and quadriceps on the left Joint Mobility Assessment Joint Mobility Assessment hypomobility of the left posterior hip capsule with decreased posterior glide Other Manual Assessments Other Manual Assessments Right leg longer in supine ( hx of right KODY) PT-OP-G Mobility & Gait Start: 06/27/19 11:16 Freq: Status: Active Protocol: Document 06/27/19 11:15 AMH (Rec: 06/28/19 12:57 AMH [email or web address]) OP Mobility Evaluation Bed Mobility Rolling pain with rolling on to her side and with sidelying to sit Supine to and from Sit painful but able to do the transfer Functional Movements Other Functional Movements pain with walking up/down stairs, needs to perform step to step pattern OP Gait Assessment Gait Gait Assistance Required: Independent Able to Maintain Weight Bearing Status Yes During Gait Gait Deviations General Gait Pattern Antalgic Decreased Stride Length Flexed Trunk Factors Limiting Gait Function Factors Limiting Gait Function Decreased Activity Tolerance Decreased Strength Pain Comments Gait Comments pain with gait in the left hip , I talked to Camryn today about using a walking stick or cane for her walks to off load her hip at this time until pain subsides Stair Climbing Evaluation Technique/Endurance Stair Climbing Direction Ascend and Descend Stair Climbing Technique Step to Step Comments Stair Climbing Comments pain with going up and down stairs in the left hip PT-OP-J Posture/Palpation/Skin Start: 06/27/19 11:16 Freq: Status: Active Protocol: Document 06/27/19 11:15 AMH (Rec: 06/28/19 12:57 AMH [email or web address]) Posture Evaluation Position Standing Evaluation View Lateral Head/C-Spine Posture Flexed Weight Distribution Weight Shifted Anterior Comments Posture Comments pt tends to stand with a forward lean Palpation Assessment Location Three Palpation Location left hip greater trochanter Palpation Findings Tenderness Two Palpation Location left piriformis Palpation Findings Soft Tissue Tightness Muscle Guarding Tenderness One Palpation Location left ITB proximal insertion Palpation Findings Soft Tissue Tightness Tenderness PT-OP-K Range of Motion Start: 06/27/19 11:16 Freq: Status: Active Protocol: Document 06/27/19 11:15 AMH (Rec: 06/28/19 12:57 AMH [email or web address]) Hip Goniometric Range of Motion Hip Right Hip ROM WFL No Flexion w/Knee Flexed 100 Straight Leg Raise 70 Extension 5 Left Hip ROM WFL No Testing Position Supine Flexion w/Knee Flexed 90 Straight Leg Raise 60 Extension 0 Hip ROM Limitations Hip ROM Limitations Soft Tissue Tightness Comments limited ROM into hip flexion left, tightness of the left posterior capsule, left iliopsoas tightness with + alessandro test , + Carrol test for ITB tightness PT-OP-L Special Tests Start: 06/27/19 11:16 Freq: Status: Active Protocol: Document 06/27/19 11:15 AMH (Rec: 06/28/19 12:57 AMH [email or web address]) Special Tests Hip Special Tests Obers test Test Results + left Comments ITB tightness Trendelenberg Test Results + Left Alessandro Test Results + Left PT-OP-M Strength Start: 06/27/19 11:16 Freq: Status: Active Protocol: Document 06/27/19 11:15 AMH (Rec: 06/28/19 14:16 AMH [email or web address]) Hip Strength Hip Manual Muscle Testing Right Flexion (L2) 4+ Good+ Extension (S1) 4 Good Abduction 4 Good External Rotation 4 Good Left Flexion (L2) 4 Good Extension (S1) 2+ Poor+ Abduction 2+ Poor+ External Rotation 2+ Poor+ Comments it is difficult for Camryn to activate the left gluteals. There is a visable difference in her gluteal muscle from the left to the right as she is atrophied on the left side. PT-OP-Q Treatments Start: 06/27/19 11:16 Freq: Status: Active Protocol: Document 07/06/19 14:30 HH (Rec: 07/06/19 16:19 HH [email or web address]) Therapeutic Exercises Supine Exercises piriformis stretch Supine Exercise Name passive hip adduction Side left Reps/Minutes 10secs hold x 5 supine nerve glide Supine Exercise Name SLR + DF Side bilateral Reps/Minutes 8 x 2 Standing Exercises hip hike Side bilateral Equipment Used 4inch step Reps/Minutes 8 x 4 Comments cues on hip hike and gluteal engagement Indonesian deadlift Standing Exercise Name hip hinge with single leg stance Side bilateral Equipment Used within //bar Reps/Minutes 5x 4 Comments cues on hip hinge side step Equipment Used hurdles Reps/Minutes 5 rounds Comments cues to prevent R hip drop step up Side left Equipment Used 2 inch box, blue and green foam Reps/Minutes 10 x 3 Comments cues to prevent R hip drop. single leg stance Side bilateral Equipment Used blue and green foam Reps/Minutes 15s x 5 set PT-OP-T Assessment and Plan Start: 06/27/19 11:16 Freq: Status: Active Protocol: Document 07/06/19 14:30 HH (Rec: 07/06/19 16:19 [email or web address]) Physical Therapy Assessment Assessment Summary Assessment Pt progressed very well with increased activity level with less L hip pain. Her single leg balance cont improves up to >20 s. Introduced single leg hip hinge and hip hike on stool to facilitate eccentric control and single leg stability. Physical Therapy Plan Next Visit Focus/Plan Next Note Type Treatment Note Next Visit Plan cont single leg balance ex as pina step up with hip control review stretches for the ITB and quads, add in piriformis stretch and begin to start gluteus medius strengthening as tolerated, manual techniques to reduce tightness of the left ITB and piriformis
--- NOTE | 2019-07-10 08:15 | PT.OTN ---
Current Diagnoses Pain in left hip (07/10/19) Physical Therapy Treatment Note PT-OP-A Visit Information Start: 06/27/19 11:16 Freq: Status: Active Protocol: Document 07/10/19 08:14 SAK (Rec: 07/10/19 09:04 SAK [email or web address]) Out-Patient Physical Therapy Visit Information Visit Information Visit Type Treatment Note Visit Start Time 08:15 Visit Stop Time 09:00 Total Visit Minutes 45 Visit Number 5 Evaluation Information Evaluation Date 06/27/19 PT-OP-B Current Condition Start: 06/27/19 11:16 Freq: Status: Active Protocol: Document 06/27/19 11:17 AMH (Rec: 06/27/19 11:27 AMH [id number]) Current Condition History of Current Condition Onset Date a few years onset History of Current Condition A few years ago Camryn [place], saw Dr. Rodriguez for the left knee as he had done her right KODY 2009, she had cortisone injections in the left knee, She was told to try PT for her hip. She currently walks 4 miles per day, it got better and then worse and then she went to PT again which helped. Since that time she underwent foot surgery on the left foot to remove bone spurs in June 2018. She used a scooter with her L LE resting on it for a period of 3 weeks. Her symptoms of posterior buttock pain have progressively worsened to where she cant sleep in the left side, cant walk more than 1/4 mile due to pain. She has to sit on ice following walking. Dr. Fish wants her to do cortisone injections. She has a appointment 07/26/[address] Kaur assistant quality manager for a cortisone injetion. She is taking Alieve 2 times per day. Her pain is rated 7/10 in the posterior gluteals. She experiences increased pain with hip flexion. She reports walking up inclines is horrible and with inclines her pain can radiate to the anterior hip. She has a Hx of L5-S 1 herniated 1992 and surgery in then rehernaited in and surgery. Other past medical history includes thyroid disorder and osteoporosis. Treatment Goals Patient/Caregiver Goals The patients goals include decreasing pain and improving her ability to walk. She likes to go for regular walks for exercise and this is very impaired at this time. Prior Functional Status Baseline Function- ADL's Independent Baseline Function- Mobility Independent Current Functional Impairments (Reported) Functional Limitations- Other moderate difficulty walking 2 blocks, quite a bit of difficulty and pain walking a mile, moderate difficulty wtanding and sitting for a hour, unable to sleep on the left side due to pain PT-OP-C Subjective Start: 06/27/19 11:16 Freq: Status: Active Protocol: Document 07/10/19 08:14 SAK (Rec: 07/10/19 09:04 SAK [id number]) OP-PT Subjective Patient Comments Patient Comments Can't sleep on left side, that is usual side. Walking better, still has aching at end of day. 1-2 Alleve per day. PT-OP-F Manual Assessment Start: 06/27/19 11:16 Freq: Status: Active Protocol: Document 06/27/19 11:15 AMH (Rec: 06/28/19 12:57 AMH [email or web address]) Manual Assessments Soft Tissue Assessment Soft Tissue Mobility Assessment tightness of the piriformis, ITB and quadriceps on the left Joint Mobility Assessment Joint Mobility Assessment hypomobility of the left posterior hip capsule with decreased posterior glide Other Manual Assessments Other Manual Assessments Right leg longer in supine ( hx of right KODY) PT-OP-G Mobility & Gait Start: 06/27/19 11:16 Freq: Status: Active Protocol: Document 06/27/19 11:15 AMH (Rec: 06/28/19 12:57 AMH [email or web address]) OP Mobility Evaluation Bed Mobility Rolling pain with rolling on to her side and with sidelying to sit Supine to and from Sit painful but able to do the transfer Functional Movements Other Functional Movements pain with walking up/down stairs, needs to perform step to step pattern OP Gait Assessment Gait Gait Assistance Required: Independent Able to Maintain Weight Bearing Status Yes During Gait Gait Deviations General Gait Pattern Antalgic Decreased Stride Length Flexed Trunk Factors Limiting Gait Function Factors Limiting Gait Function Decreased Activity Tolerance Decreased Strength Pain Comments Gait Comments pain with gait in the left hip , I talked to Camryn today about using a walking stick or cane for her walks to off load her hip at this time until pain subsides Stair Climbing Evaluation Technique/Endurance Stair Climbing Direction Ascend and Descend Stair Climbing Technique Step to Step Comments Stair Climbing Comments pain with going up and down stairs in the left hip PT-OP-J Posture/Palpation/Skin Start: 06/27/19 11:16 Freq: Status: Active Protocol: Document 06/27/19 11:15 AMH (Rec: 06/28/19 12:57 AMH [email or web address]) Posture Evaluation Position Standing Evaluation View Lateral Head/C-Spine Posture Flexed Weight Distribution Weight Shifted Anterior Comments Posture Comments pt tends to stand with a forward lean Palpation Assessment Location Three Palpation Location left hip greater trochanter Palpation Findings Tenderness Two Palpation Location left piriformis Palpation Findings Soft Tissue Tightness Muscle Guarding Tenderness One Palpation Location left ITB proximal insertion Palpation Findings Soft Tissue Tightness Tenderness PT-OP-K Range of Motion Start: 06/27/19 11:16 Freq: Status: Active Protocol: Document 06/27/19 11:15 AMH (Rec: 06/28/19 12:57 AMH [email or web address]) Hip Goniometric Range of Motion Hip Right Hip ROM WFL No Flexion w/Knee Flexed 100 Straight Leg Raise 70 Extension 5 Left Hip ROM WFL No Testing Position Supine Flexion w/Knee Flexed 90 Straight Leg Raise 60 Extension 0 Hip ROM Limitations Hip ROM Limitations Soft Tissue Tightness Comments limited ROM into hip flexion left, tightness of the left posterior capsule, left iliopsoas tightness with + alessandro test , + Carrol test for ITB tightness PT-OP-L Special Tests Start: 06/27/19 11:16 Freq: Status: Active Protocol: Document 06/27/19 11:15 AMH (Rec: 06/28/19 12:57 AMH [email or web address]) Special Tests Hip Special Tests Obers test Test Results + left Comments ITB tightness Trendelenberg Test Results + Left Alessandro Test Results + Left PT-OP-M Strength Start: 06/27/19 11:16 Freq: Status: Active Protocol: Document 06/27/19 11:15 AMH (Rec: 06/28/19 14:16 AMH [email or web address]) Hip Strength Hip Manual Muscle Testing Right Flexion (L2) 4+ Good+ Extension (S1) 4 Good Abduction 4 Good External Rotation 4 Good Left Flexion (L2) 4 Good Extension (S1) 2+ Poor+ Abduction 2+ Poor+ External Rotation 2+ Poor+ Comments it is difficult for Camryn to activate the left gluteals. There is a visable difference in her gluteal muscle from the left to the right as she is atrophied on the left side. PT-OP-Q Treatments Start: 06/27/19 11:16 Freq: Status: Active Protocol: Document 07/10/19 08:14 [facility] (Rec: 07/10/19 09:04 [facility] [id number]) Cardio Equipment Recumbent Stepper (Sci-Fit) Duration (Minutes) 8 Seat Position 11 Other 2 min UE's and LE's, 3 min LE' s Therapeutic Exercises Supine Exercises piriformis stretch Supine Exercise Name passive hip adduction Side left Reps/Minutes 10secs hold x 5 supine nerve glide Supine Exercise Name SLR + DF Side bilateral Reps/Minutes 8 x 2 2 Supine Exercise Name single knee to chest stretch Side bilateral Reps/Minutes 2 x 30 sec + Standing Exercises hip hike Side bilateral Equipment Used 4inch step Reps/Minutes 8 x 4 Comments cues on hip hike and gluteal engagement Chinese deadlift Standing Exercise Name hip hinge with single leg stance Side bilateral Equipment Used within //bar Reps/Minutes 5x 4 Comments cues on hip hinge side step Equipment Used hurdles Reps/Minutes 5 rounds Comments cues to prevent R hip drop step up Side left Equipment Used 2 inch box, blue and green foam Reps/Minutes 10 x 3 Comments cues to prevent R hip drop. single leg stance Side bilateral Equipment Used blue and green foam Reps/Minutes 15s x 5 set step over gait Standing Exercise Name within // bar Side bilateral Equipment Used hurdles Reps/Minutes 6 rounds Comments cues on heel strikes and prevent hip drop. step to Standing Exercise Name within // bar Side bilateral Equipment Used hurdles Reps/Minutes 6 rounds Comments cues on heel strikes and prevent hip drop. 1 Standing Exercise Name standing quad stretch using a chair for her foot Side bilateral Manual Therapy Treatment Manual Techniques seated sciatic nerve glide Body Position Sitting Reps/Duration 10 x2 Comments with knee ext and ankle DF sciatic nerve glide 1 Type hip at 90, knee ext and ankle DF Body Position Supine Reps/Duration 10 x2 PT-OP-T Assessment and Plan Start: 06/27/19 11:16 Freq: Status: Active Protocol: Document 07/10/19 08:14 [facility] (Rec: 07/10/19 09:04 [facility] [id number]) Physical Therapy Assessment Goals Five Impairment pain to palpation left bursa, greater trochanter, posterior gluteals Short Term Goal (STG) Camryn no longer c/o pain to palpation over the left bursa , greater trochanter, or gluteal musculature STG Duration 4 weeks Four Impairment Tightness of the ITB, piriformis, iliopsoas, quads on the left Short Term Goal (STG) Camryn is educated in a home stretching program to address the tightness in the left hip STG Duration 2-3 weeks Custodial Goal (LTG) Improve full painfree hip rom and improve length of the surrounding muscles to decrease pain LTG Duration 8 weeks Three Impairment Decreased left hip strength Char Filter Tank Tender Goal (LTG) Improve strength of the left hip to 4/5 or greater, especially the gluteals to improve support and improve function. Camryn is independent with a home exercise program for hip strengthening LTG Duration 8 weeks Two Impairment limited walking distance to 2 blocks Char Filter Tank Tender Goal (LTG) Camryn is able to return to her goal of walking 2-3 miles without a increase in pain symptoms LTG Duration 8 weeks+ One Impairment L hip pain rated 7/10, worse walking and with inclines Short Term Goal (STG) Pt is using a walking stick or cane in the right hand to reduce pressure on the left hip and this helps to decrease pain from 7/10 to 4-5/10 STG Duration 3-4 weeks Custodial Goal (LTG) With physical therapy manual techniques and hip stretching/ strengthening Camryn reports a reduction of pain to 2/10 or less. Assessment Summary Assessment Good progress toward goals, mod cues for correct exercise performance Physical Therapy Plan Frequency and Duration Frequency of Treatment 2x/Week Duration of Treatment 50 Plan of Care Start Date 06/27/19 Plan of Care End Date 08/22/19 Therapeutic Interventions Therapeutic Interventions Home Exercise Program Joint Mobilizations Manual Therapy Patient/Caregiver Education Self-Care/Home Management Soft Tissue Mobilization Taping Therapeutic Exercises Modalities Cold Pack/Ice Massage Ultrasound Next Visit Focus/Plan Next Note Type Treatment Note Next Visit Plan cont single leg balance ex as pina step up with hip control review stretches for the ITB and quads, add in piriformis stretch and begin to start gluteus medius strengthening as tolerated, manual techniques to reduce tightness of the left ITB and piriformis
--- NOTE | 2019-07-14 13:45 | PT.OTN ---
Current Diagnoses Pain in left hip (07/14/19) Physical Therapy Treatment Note PT-OP-A Visit Information Start: 06/27/19 11:16 Freq: Status: Active Protocol: Document 07/14/19 09:00 SAK (Rec: 07/14/19 09:46 SAK [id number]) Out-Patient Physical Therapy Visit Information Visit Information Visit Type Treatment Note Visit Start Time 09:00 Visit Stop Time 09:46 Total Visit Minutes 46 Visit Number 6 Evaluation Information Evaluation Date 06/27/19 PT-OP-B Current Condition Start: 06/27/19 11:16 Freq: Status: Active Protocol: Document 06/27/19 11:17 [facility] (Rec: 06/27/19 11:27 AMH [id number]) Current Condition History of Current Condition Onset Date a few years onset History of Current Condition A few years ago Camryn [place], saw Dr. Rodriguez for the left knee as he had done her right KODY 2009, she had cortisone injections in the left knee, She was told to try PT for her hip. She currently walks 4 miles per day, it got better and then worse and then she went to PT again which helped. Since that time she underwent foot surgery on the left foot to remove bone spurs in June 2018. She used a scooter with her L LE resting on it for a period of 3 weeks. Her symptoms of posterior buttock pain have progressively worsened to where she cant sleep in the left side, cant walk more than 1/4 mile due to pain. She has to sit on ice following walking. Dr. Fish wants her to do cortisone injections. She has a appointment 07/26/[address] Kaur social work assistant for a cortisone injetion. She is taking Alieve 2 times per day. Her pain is rated 7/10 in the posterior gluteals. She experiences increased pain with hip flexion. She reports walking up inclines is horrible and with inclines her pain can radiate to the anterior hip. She has a Hx of L5-S 1 herniated 1992 and surgery in then rehernaited in and surgery. Other past medical history includes thyroid disorder and osteoporosis. Treatment Goals Patient/Caregiver Goals The patients goals include decreasing pain and improving her ability to walk. She likes to go for regular walks for exercise and this is very impaired at this time. Prior Functional Status Baseline Function- ADL's Independent Baseline Function- Mobility Independent Current Functional Impairments (Reported) Functional Limitations- Other moderate difficulty walking 2 blocks, quite a bit of difficulty and pain walking a mile, moderate difficulty wtanding and sitting for a hour, unable to sleep on the left side due to pain PT-OP-C Subjective Start: 06/27/19 11:16 Freq: Status: Active Protocol: Document 07/10/19 08:14 SAK (Rec: 07/10/19 09:04 SAK [id number]) OP-PT Subjective Patient Comments Patient Comments Can't sleep on left side, that is usual side. Walking better, still has aching at end of day. 1-2 Alleve per day. PT-OP-F Manual Assessment Start: 06/27/19 11:16 Freq: Status: Active Protocol: Document 06/27/19 11:15 [facility] (Rec: 06/28/19 12:57 AMH [email or web address]) Manual Assessments Soft Tissue Assessment Soft Tissue Mobility Assessment tightness of the piriformis, ITB and quadriceps on the left Joint Mobility Assessment Joint Mobility Assessment hypomobility of the left posterior hip capsule with decreased posterior glide Other Manual Assessments Other Manual Assessments Right leg longer in supine ( hx of right KODY) PT-OP-G Mobility & Gait Start: 06/27/19 11:16 Freq: Status: Active Protocol: Document 06/27/19 11:15 AM[facility] (Rec: 06/28/19 12:57 AM[facility] [email or web address]) OP Mobility Evaluation Bed Mobility Rolling pain with rolling on to her side and with sidelying to sit Supine to and from Sit painful but able to do the transfer Functional Movements Other Functional Movements pain with walking up/down stairs, needs to perform step to step pattern OP Gait Assessment Gait Gait Assistance Required: Independent Able to Maintain Weight Bearing Status Yes During Gait Gait Deviations General Gait Pattern Antalgic Decreased Stride Length Flexed Trunk Factors Limiting Gait Function Factors Limiting Gait Function Decreased Activity Tolerance Decreased Strength Pain Comments Gait Comments pain with gait in the left hip , I talked to Camryn today about using a walking stick or cane for her walks to off load her hip at this time until pain subsides Stair Climbing Evaluation Technique/Endurance Stair Climbing Direction Ascend and Descend Stair Climbing Technique Step to Step Comments Stair Climbing Comments pain with going up and down stairs in the left hip PT-OP-J Posture/Palpation/Skin Start: 06/27/19 11:16 Freq: Status: Active Protocol: Document 06/27/19 11:15 [facility] (Rec: 06/28/19 12:57 [facility] [email or web address]) Posture Evaluation Position Standing Evaluation View Lateral Head/C-Spine Posture Flexed Weight Distribution Weight Shifted Anterior Comments Posture Comments pt tends to stand with a forward lean Palpation Assessment Location Three Palpation Location left hip greater trochanter Palpation Findings Tenderness Two Palpation Location left piriformis Palpation Findings Soft Tissue Tightness Muscle Guarding Tenderness One Palpation Location left ITB proximal insertion Palpation Findings Soft Tissue Tightness Tenderness PT-OP-K Range of Motion Start: 06/27/19 11:16 Freq: Status: Active Protocol: Document 06/27/19 11:15 AMH (Rec: 06/28/19 12:57 AMH [email or web address]) Hip Goniometric Range of Motion Hip Right Hip ROM WFL No Flexion w/Knee Flexed 100 Straight Leg Raise 70 Extension 5 Left Hip ROM WFL No Testing Position Supine Flexion w/Knee Flexed 90 Straight Leg Raise 60 Extension 0 Hip ROM Limitations Hip ROM Limitations Soft Tissue Tightness Comments limited ROM into hip flexion left, tightness of the left posterior capsule, left iliopsoas tightness with + alessandro test , + Carrol test for ITB tightness PT-OP-L Special Tests Start: 06/27/19 11:16 Freq: Status: Active Protocol: Document 06/27/19 11:15 AMH (Rec: 06/28/19 12:57 AMH [email or web address]) Special Tests Hip Special Tests Obers test Test Results + left Comments ITB tightness Trendelenberg Test Results + Left Alessandro Test Results + Left PT-OP-M Strength Start: 06/27/19 11:16 Freq: Status: Active Protocol: Document 06/27/19 11:15 AMH (Rec: 06/28/19 14:16 AMH [email or web address]) Hip Strength Hip Manual Muscle Testing Right Flexion (L2) 4+ Good+ Extension (S1) 4 Good Abduction 4 Good External Rotation 4 Good Left Flexion (L2) 4 Good Extension (S1) 2+ Poor+ Abduction 2+ Poor+ External Rotation 2+ Poor+ Comments it is difficult for Camryn to activate the left gluteals. There is a visable difference in her gluteal muscle from the left to the right as she is atrophied on the left side. PT-OP-Q Treatments Start: 06/27/19 11:16 Freq: Status: Active Protocol: Document 07/14/19 09:00 [facility] (Rec: 07/14/19 09:46 [facility] [id number]) Cardio Equipment Recumbent Stepper (Sci-Fit) Duration (Minutes) 8 Resistance 2 Seat Position 11 Other 2 min UE's and LE's, 3 min LE' s Therapeutic Exercises Supine Exercises hip flex and quad stretch Reps/Minutes 30 x 2 Comments manual quad Sidelying Exercises 1 Sidelying Exercise Name sidelying quad stretch Equipment Used towel Standing Exercises French deadlift Standing Exercise Name hip hinge with single leg stance Side bilateral Equipment Used within //bar Reps/Minutes 5x 4 Comments cues on hip hinge Manual Therapy Treatment Soft Tissue Mobilization 1 Body Location left ITB Mobilization Type Myofascial Release Intensity/Depth Moderate Body Position Sidelying Comments tool-assisted Neuro Re-Education Treatment Movement Re-Education Movement Re-education Activities gait and stair training with cues for muscle sequencing, gluteal activation Self-Care/Home Management Treatment Education Other Education neutral alignment in sidelying with support of pillows, folded towel under side. PT-OP-T Assessment and Plan Start: 06/27/19 11:16 Freq: Status: Active Protocol: Document 07/14/19 09:00 [facility] (Rec: 07/14/19 09:46 [facility] [id number]) Physical Therapy Assessment Goals Five Impairment pain to palpation left bursa, greater trochanter, posterior gluteals Short Term Goal (STG) Camryn no longer c/o pain to palpation over the left bursa , greater trochanter, or gluteal musculature STG Duration 4 weeks Four Impairment Tightness of the ITB, piriformis, iliopsoas, quads on the left Short Term Goal (STG) Camryn is educated in a home stretching program to address the tightness in the left hip STG Duration 2-3 weeks Skilled Nursing Goal (LTG) Improve full painfree hip rom and improve length of the surrounding muscles to decrease pain LTG Duration 8 weeks Three Impairment Decreased left hip strength Top Polisher Goal (LTG) Improve strength of the left hip to 4/5 or greater, especially the gluteals to improve support and improve function. Camryn is independent with a home exercise program for hip strengthening LTG Duration 8 weeks Two Impairment limited walking distance to 2 blocks Top Polisher Goal (LTG) Camryn is able to return to her goal of walking 2-3 miles without a increase in pain symptoms LTG Duration 8 weeks+ One Impairment L hip pain rated 7/10, worse walking and with inclines Short Term Goal (STG) Pt is using a walking stick or cane in the right hand to reduce pressure on the left hip and this helps to decrease pain from 7/10 to 4-5/10 STG Duration 3-4 weeks Top Polisher Goal (LTG) With physical therapy manual techniques and hip stretching/ strengthening Camryn reports a reduction of pain to 2/10 or less. Assessment Summary Assessment left hip pain continues, unable to lay on it at night. Also some muscle spasms right lower leg; uses heat and stretching. Compliant to HEP. Demonstrated good understanding of bed positioning. Physical Therapy Plan Frequency and Duration Frequency of Treatment 2x/Week Plan of Care Start Date 06/27/19 Plan of Care End Date 08/22/19 Therapeutic Interventions Therapeutic Interventions Home Exercise Program Joint Mobilizations Manual Therapy Patient/Caregiver Education Self-Care/Home Management Soft Tissue Mobilization Taping Therapeutic Exercises Modalities Cold Pack/Ice Massage Ultrasound Next Visit Focus/Plan Next Note Type Treatment Note Next Visit Plan Continue PT per POC for strengthening, flexibility, neuromotor control, soft tissue mobilization.
--- NOTE | 2019-07-19 18:03 | PT.OTN ---
Current Diagnoses Pain in left hip (07/19/19) Physical Therapy Treatment Note PT-OP-A Visit Information Start: 06/27/19 11:16 Freq: Status: Active Protocol: Document 07/19/19 13:47 HH (Rec: 07/19/19 18:02 HH [email or web address]) Out-Patient Physical Therapy Visit Information Visit Information Visit Type Treatment Note Visit Start Time 13:47 Visit Stop Time 14:32 Total Visit Minutes 45 Visit Number 7 Number of CLOTH FINISHING RANGE BACK TENDER Visits 0 PT-OP-B Current Condition Start: 06/27/19 11:16 Freq: Status: Active Protocol: Document 06/27/19 11:17 AMH (Rec: 06/27/19 11:27 AMH [id number]) Current Condition History of Current Condition Onset Date a few years onset History of Current Condition A few years ago Cam[place], saw Dr. Rodriguez for the left knee as he had done her right KODY 2009, she had cortisone injections in the left knee, She was told to try PT for her hip. She currently walks 4 miles per day, it got better and then worse and then she went to PT again which helped. Since that time she underwent foot surgery on the left foot to remove bone spurs in June 2018. She used a scooter with her L LE resting on it for a period of 3 weeks. Her symptoms of posterior buttock pain have progressively worsened to where she cant sleep in the left side, cant walk more than 1/4 mile due to pain. She has to sit on ice following walking. Dr. Fish wants her to do cortisone injections. She has a appointment 07/26/[address] Kaur assistant county attorney for a cortisone injetion. She is taking Alieve 2 times per day. Her pain is rated 7/10 in the posterior gluteals. She experiences increased pain with hip flexion. She reports walking up inclines is horrible and with inclines her pain can radiate to the anterior hip. She has a Hx of L5-S 1 herniated 1992 and surgery in then rehernaited in and surgery. Other past medical history includes thyroid disorder and osteoporosis. Treatment Goals Patient/Caregiver Goals The patients goals include decreasing pain and improving her ability to walk. She likes to go for regular walks for exercise and this is very impaired at this time. Prior Functional Status Baseline Function- ADL's Independent Baseline Function- Mobility Independent Current Functional Impairments (Reported) Functional Limitations- Other moderate difficulty walking 2 blocks, quite a bit of difficulty and pain walking a mile, moderate difficulty wtanding and sitting for a hour, unable to sleep on the left side due to pain PT-OP-C Subjective Start: 06/27/19 11:16 Freq: Status: Active Protocol: Document 07/19/19 13:47 HH (Rec: 07/19/19 18:02 HH [email or web address]) OP-PT Subjective Patient Comments Patient Comments Pt reschedule her cortison shot visit with MD on 09/06 if PT fails. But she is very pleased regarding her progress . She is able to lead with her L LE now during stair. She has no c/o for walking and climbing uphill unless some soreness. Able to start sleeping on her L side as well . PT-OP-F Manual Assessment Start: 06/27/19 11:16 Freq: Status: Active Protocol: Document 06/27/19 11:15 AMH (Rec: 06/28/19 12:57 AMH [email or web address]) Manual Assessments Soft Tissue Assessment Soft Tissue Mobility Assessment tightness of the piriformis, ITB and quadriceps on the left Joint Mobility Assessment Joint Mobility Assessment hypomobility of the left posterior hip capsule with decreased posterior glide Other Manual Assessments Other Manual Assessments Right leg longer in supine ( hx of right KODY) PT-OP-G Mobility & Gait Start: 06/27/19 11:16 Freq: Status: Active Protocol: Document 06/27/19 11:15 [facility] (Rec: 06/28/19 12:57 AMH [email or web address]) OP Mobility Evaluation Bed Mobility Rolling pain with rolling on to her side and with sidelying to sit Supine to and from Sit painful but able to do the transfer Functional Movements Other Functional Movements pain with walking up/down stairs, needs to perform step to step pattern OP Gait Assessment Gait Gait Assistance Required: Independent Able to Maintain Weight Bearing Status Yes During Gait Gait Deviations General Gait Pattern Antalgic Decreased Stride Length Flexed Trunk Factors Limiting Gait Function Factors Limiting Gait Function Decreased Activity Tolerance Decreased Strength Pain Comments Gait Comments pain with gait in the left hip , I talked to Camryn today about using a walking stick or cane for her walks to off load her hip at this time until pain subsides Stair Climbing Evaluation Technique/Endurance Stair Climbing Direction Ascend and Descend Stair Climbing Technique Step to Step Comments Stair Climbing Comments pain with going up and down stairs in the left hip PT-OP-J Posture/Palpation/Skin Start: 06/27/19 11:16 Freq: Status: Active Protocol: Document 06/27/19 11:15 AMH (Rec: 06/28/19 12:57 AMH [email or web address]) Posture Evaluation Position Standing Evaluation View Lateral Head/C-Spine Posture Flexed Weight Distribution Weight Shifted Anterior Comments Posture Comments pt tends to stand with a forward lean Palpation Assessment Location Three Palpation Location left hip greater trochanter Palpation Findings Tenderness Two Palpation Location left piriformis Palpation Findings Soft Tissue Tightness Muscle Guarding Tenderness One Palpation Location left ITB proximal insertion Palpation Findings Soft Tissue Tightness Tenderness PT-OP-K Range of Motion Start: 06/27/19 11:16 Freq: Status: Active Protocol: Document 06/27/19 11:15 AMH (Rec: 06/28/19 12:57 AMH [email or web address]) Hip Goniometric Range of Motion Hip Right Hip ROM WFL No Flexion w/Knee Flexed 100 Straight Leg Raise 70 Extension 5 Left Hip ROM WFL No Testing Position Supine Flexion w/Knee Flexed 90 Straight Leg Raise 60 Extension 0 Hip ROM Limitations Hip ROM Limitations Soft Tissue Tightness Comments limited ROM into hip flexion left, tightness of the left posterior capsule, left iliopsoas tightness with + alessandro test , + Carrol test for ITB tightness PT-OP-L Special Tests Start: 06/27/19 11:16 Freq: Status: Active Protocol: Document 06/27/19 11:15 AMH (Rec: 06/28/19 12:57 AMH [email or web address]) Special Tests Hip Special Tests Obers test Test Results + left Comments ITB tightness Trendelenberg Test Results + Left Alessandro Test Results + Left PT-OP-M Strength Start: 06/27/19 11:16 Freq: Status: Active Protocol: Document 06/27/19 11:15 AMH (Rec: 06/28/19 14:16 AMH [email or web address]) Hip Strength Hip Manual Muscle Testing Right Flexion (L2) 4+ Good+ Extension (S1) 4 Good Abduction 4 Good External Rotation 4 Good Left Flexion (L2) 4 Good Extension (S1) 2+ Poor+ Abduction 2+ Poor+ External Rotation 2+ Poor+ Comments it is difficult for Camryn to activate the left gluteals. There is a visable difference in her gluteal muscle from the left to the right as she is atrophied on the left side. PT-OP-Q Treatments Start: 06/27/19 11:16 Freq: Status: Active Protocol: Document 07/19/19 13:47 HH (Rec: 07/19/19 18:02 [email or web address]) Cardio Equipment Recumbent Stepper (Sci-Fit) Duration (Minutes) 8 Resistance 2 Seat Position 11 Other 2 min UE's and LE's, 3 min LE' s Therapeutic Exercises Standing Exercises RDL Standing Exercise Name RDL position Side bilateral Reps/Minutes 4 mins Comments dome tap with hand star excursion Side bilateral Reps/Minutes 5 mins Comments dome tap with foot sit to stand Standing Exercise Name table at 20 inches Equipment Used 4 inch box underneath R foot Reps/Minutes 10 x 3 Comments facilitate WB through L LE. hip hike Side bilateral Equipment Used 6 inch step Reps/Minutes 8 x 4 Comments cues on hip hike and gluteal engagement French deadlift Standing Exercise Name hip hinge with single leg stance Side bilateral Equipment Used within //bar Reps/Minutes 8 x 2 Comments cues on hip hinge, use contralateral forefoot for support if needed. side step Equipment Used 1st step of stairs Reps/Minutes 10 x2 Comments 6 inch step step up Side left Equipment Used 6 inch step Reps/Minutes 10 x 2 single leg stance Side bilateral Equipment Used blue and green foam Reps/Minutes 15s x 5 set Manual Therapy Treatment Soft Tissue Mobilization L gluteal Body Location L gluteal muscle belly Mobilization Type Cross-Friction Sustained Pressure Trigger Point Release Intensity/Depth Moderate Body Position Sidelying 1 Body Location left ITB Mobilization Type Cross-Friction Sustained Pressure Trigger Point Release Intensity/Depth Moderate Body Position Sidelying PT-OP-T Assessment and Plan Start: 06/27/19 11:16 Freq: Status: Active Protocol: Document 07/19/19 13:47 HH (Rec: 07/19/19 18:02 [email or web address]) Physical Therapy Assessment Goals Five Impairment pain to palpation left bursa, greater trochanter, posterior gluteals Short Term Goal (STG) Camryn no longer c/o pain to palpation over the left bursa , greater trochanter, or gluteal musculature STG Duration 4 weeks Four Impairment Tightness of the ITB, piriformis, iliopsoas, quads on the left Short Term Goal (STG) Camryn is educated in a home stretching program to address the tightness in the left hip STG Duration 2-3 weeks Scientific Recruiter Goal (LTG) Improve full painfree hip rom and improve length of the surrounding muscles to decrease pain LTG Duration 8 weeks Three Impairment Decreased left hip strength Scientific Recruiter Goal (LTG) Improve strength of the left hip to 4/5 or greater, especially the gluteals to improve support and improve function. Camryn is independent with a home exercise program for hip strengthening LTG Duration 8 weeks Two Impairment limited walking distance to 2 blocks Senior Care Goal (LTG) Camryn is able to return to her goal of walking 2-3 miles without a increase in pain symptoms LTG Duration 8 weeks+ One Impairment L hip pain rated 7/10, worse walking and with inclines Short Term Goal (STG) Pt is using a walking stick or cane in the right hand to reduce pressure on the left hip and this helps to decrease pain from 7/10 to 4-5/10 STG Duration 3-4 weeks Senior Care Goal (LTG) With physical therapy manual techniques and hip stretching/ strengthening Camryn reports a reduction of pain to 2/10 or less. Assessment Summary Assessment Pt progressed well and comply to her HEP. Her SLS >15s for both LEs. Presents improved hip control during step up, eccentric activities. Recommend pt to visit PT 1x/ week x 4 weeks for cont strengthening and conditioning . Pt is very pleased with her progress and upcoming plan of care. Physical Therapy Plan Next Visit Focus/Plan Next Note Type Treatment Note Next Visit Plan Continue PT per POC for strengthening, flexibility, neuromotor control, soft tissue mobilization. single leg strengthening and dynamic balancing activities.
--- NOTE | 2019-07-21 16:08 | PT.OTN ---
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 Rodriguez for the left knee as he had done her right KODY 2009, she had cortisone injections in the left knee, She was told to try PT for her hip. She currently walks 4 miles per day, it got better and then worse and then she went to PT again which helped. Since that time she underwent foot surgery on the left foot to remove bone spurs in June 2018. She used a scooter with her L LE resting on it for a period of 3 weeks. Her symptoms of posterior buttock pain have progressively worsened to where she cant sleep in the left side, cant walk more than 1/4 mile due to pain. She has to sit on ice following walking. Dr. Fish wants her to do cortisone injections. She has a appointment 07/26/[address] Kaur environmental engineering assistant for a cortisone injetion. She is taking Alieve 2 times per day. Her pain is rated 7/10 in the posterior gluteals. She experiences increased pain with hip flexion. She reports walking up inclines is horrible and with inclines her pain can radiate to the anterior hip. She has a Hx of L5-S 1 herniated 1992 and surgery in then rehernaited in and surgery. Other past medical history includes thyroid disorder and osteoporosis. Treatment Goals Patient/Caregiver Goals The patients goals include decreasing pain and improving her ability to walk. She likes to go for regular walks for exercise and this is very impaired at this time. Prior Functional Status Baseline Function- ADL's Independent Baseline Function- Mobility Independent Current Functional Impairments (Reported) Functional Limitations- Other moderate difficulty walking 2 blocks, quite a bit of difficulty and pain walking a mile, moderate difficulty wtanding and sitting for a hour, unable to sleep on the left side due to pain PT-OP-C Subjective Start: 06/27/19 11:16 Freq: Status: Active Protocol: Document 07/21/19 13:00 HH (Rec: 07/21/19 16:07 HH [email or web address]) OP-PT Subjective Patient Comments Patient Comments I feel very sore after last visit especially after step up . But I am able to recover. Patient Reported Progress Improving PT-OP-F Manual Assessment Start: 06/27/19 11:16 Freq: Status: Active Protocol: Document 06/27/19 11:15 AMH (Rec: 06/28/19 12:57 AMH [email or web address]) Manual Assessments Soft Tissue Assessment Soft Tissue Mobility Assessment tightness of the piriformis, ITB and quadriceps on the left Joint Mobility Assessment Joint Mobility Assessment hypomobility of the left posterior hip capsule with decreased posterior glide Other Manual Assessments Other Manual Assessments Right leg longer in supine ( hx of right KODY) PT-OP-G Mobility & Gait Start: 06/27/19 11:16 Freq: Status: Active Protocol: Document 06/27/19 11:15 AMH (Rec: 06/28/19 12:57 AMH [email or web address]) OP Mobility Evaluation Bed Mobility Rolling pain with rolling on to her side and with sidelying to sit Supine to and from Sit painful but able to do the transfer Functional Movements Other Functional Movements pain with walking up/down stairs, needs to perform step to step pattern OP Gait Assessment Gait Gait Assistance Required: Independent Able to Maintain Weight Bearing Status Yes During Gait Gait Deviations General Gait Pattern Antalgic Decreased Stride Length Flexed Trunk Factors Limiting Gait Function Factors Limiting Gait Function Decreased Activity Tolerance Decreased Strength Pain Comments Gait Comments pain with gait in the left hip , I talked to Camryn today about using a walking stick or cane for her walks to off load her hip at this time until pain subsides Stair Climbing Evaluation Technique/Endurance Stair Climbing Direction Ascend and Descend Stair Climbing Technique Step to Step Comments Stair Climbing Comments pain with going up and down stairs in the left hip PT-OP-J Posture/Palpation/Skin Start: 06/27/19 11:16 Freq: Status: Active Protocol: Document 06/27/19 11:15 AMH (Rec: 06/28/19 12:57 AMH [email or web address]) Posture Evaluation Position Standing Evaluation View Lateral Head/C-Spine Posture Flexed Weight Distribution Weight Shifted Anterior Comments Posture Comments pt tends to stand with a forward lean Palpation Assessment Location Three Palpation Location left hip greater trochanter Palpation Findings Tenderness Two Palpation Location left piriformis Palpation Findings Soft Tissue Tightness Muscle Guarding Tenderness One Palpation Location left ITB proximal insertion Palpation Findings Soft Tissue Tightness Tenderness PT-OP-K Range of Motion Start: 06/27/19 11:16 Freq: Status: Active Protocol: Document 06/27/19 11:15 AMH (Rec: 06/28/19 12:57 AMH [email or web address]) Hip Goniometric Range of Motion Hip Right Hip ROM WFL No Flexion w/Knee Flexed 100 Straight Leg Raise 70 Extension 5 Left Hip ROM WFL No Testing Position Supine Flexion w/Knee Flexed 90 Straight Leg Raise 60 Extension 0 Hip ROM Limitations Hip ROM Limitations Soft Tissue Tightness Comments limited ROM into hip flexion left, tightness of the left posterior capsule, left iliopsoas tightness with + alessandro test , + Carrol test for ITB tightness PT-OP-L Special Tests Start: 06/27/19 11:16 Freq: Status: Active Protocol: Document 06/27/19 11:15 AMH (Rec: 06/28/19 12:57 AMH [email or web address]) Special Tests Hip Special Tests Obers test Test Results + left Comments ITB tightness Trendelenberg Test Results + Left Alessandro Test Results + Left PT-OP-M Strength Start: 06/27/19 11:16 Freq: Status: Active Protocol: Document 06/27/19 11:15 AMH (Rec: 06/28/19 14:16 AMH [email or web address]) Hip Strength Hip Manual Muscle Testing Right Flexion (L2) 4+ Good+ Extension (S1) 4 Good Abduction 4 Good External Rotation 4 Good Left Flexion (L2) 4 Good Extension (S1) 2+ Poor+ Abduction 2+ Poor+ External Rotation 2+ Poor+ Comments it is difficult for Camryn to activate the left gluteals. There is a visable difference in her gluteal muscle from the left to the right as she is atrophied on the left side. PT-OP-Q Treatments Start: 06/27/19 11:16 Freq: Status: Active Protocol: Document 07/21/19 13:00 HH (Rec: 07/21/19 13:48 [email or web address]) Cardio Equipment Recumbent Stepper (Sci-Fit) Duration (Minutes) 8 Resistance 2 Seat Position 11 Other 2 min UE's and LE's, 3 min LE' s Gym Equipment Shuttle Recovery B squat Resistance #125 Shuttle Recovery Platform Stable uni squat Resistance #75 Shuttle Recovery Platform Stable Therapeutic Exercises Supine Exercises piriformis stretch Supine Exercise Name passive hip adduction Side left Reps/Minutes 10secs hold x 5 Standing Exercises slider Side bilateral Reps/Minutes 5 mins Comments cues on upright posture to focus knee strength star excursion Side bilateral Reps/Minutes 5 mins Comments dome tap with foot PT-OP-R Modalities Start: 06/27/19 11:16 Freq: Status: Active Protocol: Document 07/21/19 13:00 HH (Rec: 07/21/19 16:08 [email or web address]) Hot Pack/Cold Pack Treatment L hip Patient Position Hooklying Treatment Duration (minutes) 8 Patient Tolerance Good PT-OP-T Assessment and Plan Start: 06/27/19 11:16 Freq: Status: Active Protocol: Document 07/21/19 13:00 HH (Rec: 07/21/19 16:07 [email or web address]) Physical Therapy Assessment Goals Five Impairment pain to palpation left bursa, greater trochanter, posterior gluteals Short Term Goal (STG) Camryn no longer c/o pain to palpation over the left bursa , greater trochanter, or gluteal musculature STG Duration 4 weeks Four Impairment Tightness of the ITB, piriformis, iliopsoas, quads on the left Short Term Goal (STG) Camryn is educated in a home stretching program to address the tightness in the left hip STG Duration 2-3 weeks [facility] Goal (LTG) Improve full painfree hip rom and improve length of the surrounding muscles to decrease pain LTG Duration 8 weeks Three Impairment Decreased left hip strength Computer Systems Support Specialist Goal (LTG) Improve strength of the left hip to 4/5 or greater, especially the gluteals to improve support and improve function. Camryn is independent with a home exercise program for hip strengthening LTG Duration 8 weeks Two Impairment limited walking distance to 2 blocks Computer Systems Support Specialist Goal (LTG) Camryn is able to return to her goal of walking 2-3 miles without a increase in pain symptoms LTG Duration 8 weeks+ One Impairment L hip pain rated 7/10, worse walking and with inclines Short Term Goal (STG) Pt is using a walking stick or cane in the right hand to reduce pressure on the left hip and this helps to decrease pain from 7/10 to 4-5/10 STG Duration 3-4 weeks Computer Systems Support Specialist Goal (LTG) With physical therapy manual techniques and hip stretching/ strengthening Camryn reports a reduction of pain to 2/10 or less. Assessment Summary Assessment Pt felt sore today after last visit. tx focused on quad strengthening and single leg balance. pt has no c/o. Physical Therapy Plan Next Visit Focus/Plan Next Note Type Treatment Note Next Visit Plan Continue PT per POC for strengthening, flexibility, neuromotor control, soft tissue mobilization. single leg strengthening and dynamic balancing activities.
--- NOTE | 2019-07-28 13:47 | PT.OTN ---
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 Rodriguez for the left knee as he had done her right KODY 2009, she had cortisone injections in the left knee, She was told to try PT for her hip. She currently walks 4 miles per day, it got better and then worse and then she went to PT again which helped. Since that time she underwent foot surgery on the left foot to remove bone spurs in June 2018. She used a scooter with her L LE resting on it for a period of 3 weeks. Her symptoms of posterior buttock pain have progressively worsened to where she cant sleep in the left side, cant walk more than 1/4 mile due to pain. She has to sit on ice following walking. Dr. Fish wants her to do cortisone injections. She has a appointment 07/26/[address] Kaur behavioral modification assistant for a cortisone injetion. She is taking Alieve 2 times per day. Her pain is rated 7/10 in the posterior gluteals. She experiences increased pain with hip flexion. She reports walking up inclines is horrible and with inclines her pain can radiate to the anterior hip. She has a Hx of L5-S 1 herniated 1992 and surgery in then rehernaited in and surgery. Other past medical history includes thyroid disorder and osteoporosis. Treatment Goals Patient/Caregiver Goals The patients goals include decreasing pain and improving her ability to walk. She likes to go for regular walks for exercise and this is very impaired at this time. Prior Functional Status Baseline Function- ADL's Independent Baseline Function- Mobility Independent Current Functional Impairments (Reported) Functional Limitations- Other moderate difficulty walking 2 blocks, quite a bit of difficulty and pain walking a mile, moderate difficulty wtanding and sitting for a hour, unable to sleep on the left side due to pain PT-OP-C Subjective Start: 06/27/19 11:16 Freq: Status: Active Protocol: Document 07/28/19 12:50 HH (Rec: 07/28/19 13:46 HH [email or web address]) OP-PT Subjective Patient Comments Patient Comments Aundrea been feeling sore at my L hip. But my strength and balance cont getting better. I do my strengthening ex every morning before a 2/3 miles walk. Patient Reported Progress Improving PT-OP-F Manual Assessment Start: 06/27/19 11:16 Freq: Status: Active Protocol: Document 06/27/19 11:15 AMH (Rec: 06/28/19 12:57 AMH [email or web address]) Manual Assessments Soft Tissue Assessment Soft Tissue Mobility Assessment tightness of the piriformis, ITB and quadriceps on the left Joint Mobility Assessment Joint Mobility Assessment hypomobility of the left posterior hip capsule with decreased posterior glide Other Manual Assessments Other Manual Assessments Right leg longer in supine ( hx of right KODY) PT-OP-G Mobility & Gait Start: 06/27/19 11:16 Freq: Status: Active Protocol: Document 06/27/19 11:15 AMH (Rec: 06/28/19 12:57 AMH [email or web address]) OP Mobility Evaluation Bed Mobility Rolling pain with rolling on to her side and with sidelying to sit Supine to and from Sit painful but able to do the transfer Functional Movements Other Functional Movements pain with walking up/down stairs, needs to perform step to step pattern OP Gait Assessment Gait Gait Assistance Required: Independent Able to Maintain Weight Bearing Status Yes During Gait Gait Deviations General Gait Pattern Antalgic,Decreased Stride Length,Flexed Trunk Factors Limiting Gait Function Factors Limiting Gait Function Decreased Activity Tolerance, Decreased Strength,Pain Comments Gait Comments pain with gait in the left hip , I talked to Camryn today about using a walking stick or cane for her walks to off load her hip at this time until pain subsides Stair Climbing Evaluation Technique/Endurance Stair Climbing Direction Ascend and Descend Stair Climbing Technique Step to Step Comments Stair Climbing Comments pain with going up and down stairs in the left hip PT-OP-J Posture/Palpation/Skin Start: 06/27/19 11:16 Freq: Status: Active Protocol: Document 06/27/19 11:15 AMH (Rec: 06/28/19 12:57 AMH [email or web address]) Posture Evaluation Position Standing Evaluation View Lateral Head/C-Spine Posture Flexed Weight Distribution Weight Shifted Anterior Comments Posture Comments pt tends to stand with a forward lean Palpation Assessment Location Three Palpation Location left hip greater trochanter Palpation Findings Tenderness Two Palpation Location left piriformis Palpation Findings Soft Tissue Tightness,Muscle Guarding,Tenderness One Palpation Location left ITB proximal insertion Palpation Findings Soft Tissue Tightness, Tenderness PT-OP-K Range of Motion Start: 06/27/19 11:16 Freq: Status: Active Protocol: Document 06/27/19 11:15 AMH (Rec: 06/28/19 12:57 AMH [email or web address]) Hip Goniometric Range of Motion Hip Right Hip ROM WFL No Flexion w/Knee Flexed 100 Straight Leg Raise 70 Extension 5 Left Hip ROM WFL No Testing Position Supine Flexion w/Knee Flexed 90 Straight Leg Raise 60 Extension 0 Hip ROM Limitations Hip ROM Limitations Soft Tissue Tightness Comments limited ROM into hip flexion left, tightness of the left posterior capsule, left iliopsoas tightness with + alessandro test , + Carrol test for ITB tightness PT-OP-L Special Tests Start: 06/27/19 11:16 Freq: Status: Active Protocol: Document 06/27/19 11:15 AMH (Rec: 06/28/19 12:57 AMH [email or web address]) Special Tests Hip Special Tests Obers test Test Results + left Comments ITB tightness Trendelenberg Test Results + Left Alessandro Test Results + Left PT-OP-M Strength Start: 06/27/19 11:16 Freq: Status: Active Protocol: Document 06/27/19 11:15 AMH (Rec: 06/28/19 14:16 AMH [email or web address]) Hip Strength Hip Manual Muscle Testing Right Flexion (L2) 4+ Good+ Extension (S1) 4 Good Abduction 4 Good External Rotation 4 Good Left Flexion (L2) 4 Good Extension (S1) 2+ Poor+ Abduction 2+ Poor+ External Rotation 2+ Poor+ Comments it is difficult for Camryn to activate the left gluteals. There is a visable difference in her gluteal muscle from the left to the right as she is atrophied on the left side. PT-OP-Q Treatments Start: 06/27/19 11:16 Freq: Status: Active Protocol: Document 07/28/19 12:50 HH (Rec: 07/28/19 13:46 HH [email or web address]) Cardio Equipment Recumbent Stepper (Sci-Fit) Duration (Minutes) 8 Resistance 2 Seat Position 11 Other 2 min UE's and LE's, 3 min LE' s Gym Equipment Shuttle Recovery B squat Resistance #125 Shuttle Recovery Platform Stable Reps/Time 8 x2 uni squat Resistance #87 Shuttle Recovery Platform Stable Reps/Time 8 x 2 Therapeutic Exercises Supine Exercises piriformis stretch Supine Exercise Name passive hip adduction Side left Reps/Minutes 10secs hold x 5 Standing Exercises ball catch and throw Standing Exercise Name tandem stance, stagger, side step Side bilateral Reps/Minutes 10 mins Comments tennis ball tandem stance Side bilateral Equipment Used blue foam Reps/Minutes 15s x 5 stagger stance Side bilateral Equipment Used blue foam Reps/Minutes 15s x 5 single leg stance Side bilateral Equipment Used blue and green foam Reps/Minutes 15s x 5 set Manual Therapy Treatment Soft Tissue Mobilization L gluteal Body Location L gluteal muscle belly Mobilization Type Cross-Friction,Sustained Pressure,Trigger Point Release Intensity/Depth Moderate Body Position Sidelying 1 Body Location left ITB Mobilization Type Cross-Friction,Sustained Pressure,Trigger Point Release Intensity/Depth Moderate Body Position Sidelying Manual Traction L SIJ distraction Body Position Sidelying Reps/Duration 15secs x 5 Comments L thoracic rotation and R lumbar rotation L hip distraction Body Position Sidelying Reps/Duration 15 secs x 5 PT-OP-R Modalities Start: 06/27/19 11:16 Freq: Status: Active Protocol: Document 07/28/19 13:47 HH (Rec: 07/28/19 13:47 HH [email or web address]) Hot Pack/Cold Pack Treatment L hip Patient Position Hooklying Treatment Duration (minutes) 10 Patient Tolerance Good PT-OP-T Assessment and Plan Start: 06/27/19 11:16 Freq: Status: Active Protocol: Document 07/28/19 12:50 HH (Rec: 07/28/19 13:46 HH [email or web address]) Physical Therapy Assessment Goals Five Impairment pain to palpation left bursa, greater trochanter, posterior gluteals Short Term Goal (STG) Camryn no longer c/o pain to palpation over the left bursa , greater trochanter, or gluteal musculature STG Duration 4 weeks Four Impairment Tightness of the ITB, piriformis, iliopsoas, quads on the left Short Term Goal (STG) Camryn is educated in a home stretching program to address the tightness in the left hip STG Duration 2-3 weeks [facility] Goal (LTG) Improve full painfree hip rom and improve length of the surrounding muscles to decrease pain LTG Duration 8 weeks Three Impairment Decreased left hip strength [facility] Goal (LTG) Improve strength of the left hip to 4/5 or greater, especially the gluteals to improve support and improve function. Camryn is independent with a home exercise program for hip strengthening LTG Duration 8 weeks Two Impairment limited walking distance to 2 blocks [facility] Goal (LTG) Camryn is able to return to her goal of walking 2-3 miles without a increase in pain symptoms LTG Duration 8 weeks+ One Impairment L hip pain rated 7/10, worse walking and with inclines Short Term Goal (STG) Pt is using a walking stick or cane in the right hand to reduce pressure on the left hip and this helps to decrease pain from 7/10 to 4-5/10 STG Duration 3-4 weeks [facility] Goal (LTG) With physical therapy manual techniques and hip stretching/ strengthening Camryn reports a reduction of pain to 2/10 or less. Assessment Summary Assessment Pt cont to have soreness at L hip possibly due to consistent strengthening ex everyday + 3 miles walk. Recommended pt to perform step up, RDL, star excursion 4x/week for time to recovery. However, pt does show cont inmprovements in single leg strength and balance. Physical Therapy Plan Next Visit Focus/Plan Next Note Type Treatment Note Next Visit Plan check pt's soreness single leg balance, single leg strength L hip strengthening
--- NOTE | 2019-08-03 14:06 | PT.OTN ---
Current Diagnoses Pain in left hip (08/03/19) Physical Therapy Treatment Note PT-OP-A Visit Information Start: 06/27/19 11:16 Freq: Status: Active Protocol: Document 08/03/19 09:43 SAK (Rec: 08/03/19 10:03 SAK [id number]) Out-Patient Physical Therapy Visit Information Visit Information Visit Type Progress Note Visit Start Time 09:45 Visit Stop Time 10:45 Total Visit Minutes 60 Visit Number 10 Number of ATTENDANT COIN OPERATED LAUNDRY Visits 0 PT-OP-B Current Condition Start: 06/27/19 11:16 Freq: Status: Active Protocol: Document 06/27/19 11:17 [facility] (Rec: 06/27/19 11:27 AMH [id number]) Current Condition History of Current Condition Onset Date a few years onset History of Current Condition A few years ago Camryn [place], saw Dr. Rodriguez for the left knee as he had done her right KODY 2009, she had cortisone injections in the left knee, She was told to try PT for her hip. She currently walks 4 miles per day, it got better and then worse and then she went to PT again which helped. Since that time she underwent foot surgery on the left foot to remove bone spurs in June 2018. She used a scooter with her L LE resting on it for a period of 3 weeks. Her symptoms of posterior buttock pain have progressively worsened to where she cant sleep in the left side, cant walk more than 1/4 mile due to pain. She has to sit on ice following walking. Dr. Fish wants her to do cortisone injections. She has a appointment 07/26/[address] Kaur computer lab assistant for a cortisone injetion. She is taking Alieve 2 times per day. Her pain is rated 7/10 in the posterior gluteals. She experiences increased pain with hip flexion. She reports walking up inclines is horrible and with inclines her pain can radiate to the anterior hip. She has a Hx of L5-S 1 herniated 1992 and surgery in then rehernaited in and surgery. Other past medical history includes thyroid disorder and osteoporosis. Treatment Goals Patient/Caregiver Goals The patients goals include decreasing pain and improving her ability to walk. She likes to go for regular walks for exercise and this is very impaired at this time. Prior Functional Status Baseline Function- ADL's Independent Baseline Function- Mobility Independent Current Functional Impairments (Reported) Functional Limitations- Other moderate difficulty walking 2 blocks, quite a bit of difficulty and pain walking a mile, moderate difficulty wtanding and sitting for a hour, unable to sleep on the left side due to pain PT-OP-C Subjective Start: 06/27/19 11:16 Freq: Status: Active Protocol: Document 08/03/19 09:43 SAK (Rec: 08/03/19 10:03 SAK [id number]) OP-PT Subjective Patient Comments Patient Comments Pain persists, having difficulty sleeping. Backed off of exercises as instructed . Golfed on Wednesday reports increased pain next day wonders if due to getting in and out of cart on uneven ground. Had postponed pain management appointment until August, but now trying to get in earlier. Not wantint to walk, especially even. Reports very frustrated that it doesn't seem to take much at all to flare my pain. PT-OP-F Manual Assessment Start: 06/27/19 11:16 Freq: Status: Active Protocol: Document 06/27/19 11:15 [facility] (Rec: 06/28/19 12:57 AMH [email or web address]) Manual Assessments Soft Tissue Assessment Soft Tissue Mobility Assessment tightness of the piriformis, ITB and quadriceps on the left Joint Mobility Assessment Joint Mobility Assessment hypomobility of the left posterior hip capsule with decreased posterior glide Other Manual Assessments Other Manual Assessments Right leg longer in supine ( hx of right KODY) PT-OP-G Mobility & Gait Start: 06/27/19 11:16 Freq: Status: Active Protocol: Document 06/27/19 11:15 AMH (Rec: 06/28/19 12:57 AMH [email or web address]) OP Mobility Evaluation Bed Mobility Rolling pain with rolling on to her side and with sidelying to sit Supine to and from Sit painful but able to do the transfer Functional Movements Other Functional Movements pain with walking up/down stairs, needs to perform step to step pattern OP Gait Assessment Gait Gait Assistance Required: Independent Able to Maintain Weight Bearing Status Yes During Gait Gait Deviations General Gait Pattern Antalgic,Decreased Stride Length,Flexed Trunk Factors Limiting Gait Function Factors Limiting Gait Function Decreased Activity Tolerance, Decreased Strength,Pain Comments Gait Comments pain with gait in the left hip , I talked to Camryn today about using a walking stick or cane for her walks to off load her hip at this time until pain subsides Stair Climbing Evaluation Technique/Endurance Stair Climbing Direction Ascend and Descend Stair Climbing Technique Step to Step Comments Stair Climbing Comments pain with going up and down stairs in the left hip PT-OP-J Posture/Palpation/Skin Start: 06/27/19 11:16 Freq: Status: Active Protocol: Document 06/27/19 11:15 AMH (Rec: 06/28/19 12:57 AMH [email or web address]) Posture Evaluation Position Standing Evaluation View Lateral Head/C-Spine Posture Flexed Weight Distribution Weight Shifted Anterior Comments Posture Comments pt tends to stand with a forward lean Palpation Assessment Location Three Palpation Location left hip greater trochanter Palpation Findings Tenderness Two Palpation Location left piriformis Palpation Findings Soft Tissue Tightness,Muscle Guarding,Tenderness One Palpation Location left ITB proximal insertion Palpation Findings Soft Tissue Tightness, Tenderness PT-OP-K Range of Motion Start: 06/27/19 11:16 Freq: Status: Active Protocol: Document 06/27/19 11:15 AMH (Rec: 06/28/19 12:57 AMH [email or web address]) Hip Goniometric Range of Motion Hip Right Hip ROM WFL No Flexion w/Knee Flexed 100 Straight Leg Raise 70 Extension 5 Left Hip ROM WFL No Testing Position Supine Flexion w/Knee Flexed 90 Straight Leg Raise 60 Extension 0 Hip ROM Limitations Hip ROM Limitations Soft Tissue Tightness Comments limited ROM into hip flexion left, tightness of the left posterior capsule, left iliopsoas tightness with + alessandro test , + Carrol test for ITB tightness PT-OP-L Special Tests Start: 06/27/19 11:16 Freq: Status: Active Protocol: Document 06/27/19 11:15 AMH (Rec: 06/28/19 12:57 AMH [email or web address]) Special Tests Hip Special Tests Obers test Test Results + left Comments ITB tightness Trendelenberg Test Results + Left Alessandro Test Results + Left PT-OP-M Strength Start: 06/27/19 11:16 Freq: Status: Active Protocol: Document 06/27/19 11:15 AMH (Rec: 06/28/19 14:16 AMH [email or web address]) Hip Strength Hip Manual Muscle Testing Right Flexion (L2) 4+ Good+ Extension (S1) 4 Good Abduction 4 Good External Rotation 4 Good Left Flexion (L2) 4 Good Extension (S1) 2+ Poor+ Abduction 2+ Poor+ External Rotation 2+ Poor+ Comments it is difficult for Camryn to activate the left gluteals. There is a visable difference in her gluteal muscle from the left to the right as she is atrophied on the left side. PT-OP-Q Treatments Start: 06/27/19 11:16 Freq: Status: Active Protocol: Document 08/03/19 09:43 [facility] (Rec: 08/03/19 10:03 [facility] [id number]) Cardio Equipment Recumbent Stepper (Sci-Fit) Duration (Minutes) 9 Resistance 2 Seat Position 11 Other 5 min UE's and LE's, 4 min LE' s only Manual Therapy Treatment Other Other Manual Treatments reassessment with LE MMT Self-Care/Home Management Treatment Education Patient Education Body Mechanics,Home Exercise Program,Pain Management Activities Self-Care/Home Management Activities encouraged patient to back of of HEP for a few days, try isometric gluteal sets, hip add and abd. Self-evaluation of habitual postures and movements including with gait. PT-OP-R Modalities Start: 06/27/19 11:16 Freq: Status: Active Protocol: Document 08/03/19 09:43 [facility] (Rec: 08/03/19 14:03 [facility] [id number]) Hot Pack/Cold Pack Treatment L hip Patient Position Hooklying Treatment Duration (minutes) 10 Patient Tolerance Good Iontophoresis Treatment left greater trochanter Treatment Medication Dexamethasone (-) Medication Amount (mL) (ml) 1.0 Medication Dosage 4.0mg/ml Treatment Polarity negative Treatment Duration (minutes) 3 Comment Treatment Comment patient instructed to remove after 6 hours Ultrasound Therapy Treatment left greater trochanter, piriformis Treatment Duration (minutes) 12 Patient Position Sidelying Frequency Setting (mHz) 1 Mode Setting Pulsed Duty Cycle 50% Intensity Setting (w/cm2) 1.4 PT-OP-T Assessment and Plan Start: 06/27/19 11:16 Freq: Status: Active Protocol: Document 08/03/19 09:43 [facility] (Rec: 08/03/19 10:03 [facility] [id number]) Physical Therapy Assessment Goals Five Impairment pain to palpation left bursa, greater trochanter, posterior gluteals Short Term Goal (STG) Camryn no longer c/o pain to palpation over the left bursa , greater trochanter, or gluteal musculature 08/03/19: tenderness persists STG Duration 4 weeks Four Impairment Tightness of the ITB, piriformis, iliopsoas, quads on the left Short Term Goal (STG) Camryn is educated in a home stretching program to address the tightness in the left hip 08/03/19: has been instructed, modification persists STG Duration 2-3 weeks [facility] Goal (LTG) Improve full painfree hip rom and improve length of the surrounding muscles to decrease pain 08/03/19 initially decrease in pain but has increased again to high level LTG Duration 8 weeks Three Impairment Decreased left hip strength Gelatin Powder Mixer Goal (LTG) Improve strength of the left hip to 4/5 or greater, especially the gluteals to improve support and improve function. Camryn is independent with a home exercise program for hip strengthening 08/03/19: not achieved, pain with MMT IR, ext, flex, abd LTG Duration 8 weeks Two Impairment limited walking distance to 2 blocks [facility] Goal (LTG) Camryn is able to return to her goal of walking 2-3 miles without a increase in pain symptoms 08/03/19 Had been improving, but again, over past week significant increase LTG Duration 8 weeks+ One Impairment L hip pain rated 7/10, worse walking and with inclines Short Term Goal (STG) Pt is using a walking stick or cane in the right hand to reduce pressure on the left hip and this helps to decrease pain from 7/10 to 4-5/10 08/03/19: pain 7/10 today STG Duration 3-4 weeks [facility] Goal (LTG) With physical therapy manual techniques and hip stretching/ strengthening Camryn reports a reduction of pain to 2/10 or less. Assessment Summary Assessment Priti had been making good progress initially, but for unknown reason has had a significant flare in pain over past week and she is very frustrated by her pain and limitations. Due to feeling she was doing better she postponed an appointment for a possible cortisone injection but is now trying to get that appointment moved forward. MMT of her left hip caused pain in most motions, her tenderness has increased, and her sleep is interrupted. Agreeable to trial ultrasound and iontophoresis today to decrease pain and inflammation She will be out of town next week. Physical Therapy Plan Frequency and Duration Frequency of Treatment 2x/Week Plan of Care Start Date 06/27/19 Plan of Care End Date 08/22/19 Therapeutic Interventions Therapeutic Interventions Home Exercise Program,Joint Mobilizations,Manual Therapy, Patient/Caregiver Education, Self-Care/Home Management,Soft Tissue Mobilization,Taping, Therapeutic Exercises Modalities Cold Pack/Ice Massage, Iontophoresis,Ultrasound Next Visit Focus/Plan Next Note Type Treatment Note Next Visit Plan Evaluate response to last PT session, continue with modalities as indicated, assess gait on treadmill with possible video for patient education. Ther ex as tolerated.
--- NOTE | 2019-08-16 20:17 | PT.OTN ---
Current Diagnoses Pain in left hip (08/16/19) Physical Therapy Treatment Note PT-OP-A Visit Information Start: 06/27/19 11:16 Freq: Status: Active Protocol: Document 08/16/19 14:28 SAK (Rec: 08/16/19 15:17 SAK [id number]) Out-Patient Physical Therapy Visit Information Visit Information Visit Type Treatment Note Visit Start Time 14:30 Visit Stop Time 15:31 Total Visit Minutes 61 Visit Number 11 Number of RACING MECHANIC Visits 0 PT-OP-B Current Condition Start: 06/27/19 11:16 Freq: Status: Active Protocol: Document 06/27/19 11:17 AMH (Rec: 06/27/19 11:27 AMH [id number]) Current Condition History of Current Condition Onset Date a few years onset History of Current Condition A few years ago Camryn [place], saw Dr. Rodriguez for the left knee as he had done her right KODY 2009, she had cortisone injections in the left knee, She was told to try PT for her hip. She currently walks 4 miles per day, it got better and then worse and then she went to PT again which helped. Since that time she underwent foot surgery on the left foot to remove bone spurs in June 2018. She used a scooter with her L LE resting on it for a period of 3 weeks. Her symptoms of posterior buttock pain have progressively worsened to where she cant sleep in the left side, cant walk more than 1/4 mile due to pain. She has to sit on ice following walking. Dr. Fish wants her to do cortisone injections. She has a appointment 07/26/[address] Kaur roofer assistant for a cortisone injetion. She is taking Alieve 2 times per day. Her pain is rated 7/10 in the posterior gluteals. She experiences increased pain with hip flexion. She reports walking up inclines is horrible and with inclines her pain can radiate to the anterior hip. She has a Hx of L5-S 1 herniated 1992 and surgery in then rehernaited in and surgery. Other past medical history includes thyroid disorder and osteoporosis. Treatment Goals Patient/Caregiver Goals The patients goals include decreasing pain and improving her ability to walk. She likes to go for regular walks for exercise and this is very impaired at this time. Prior Functional Status Baseline Function- ADL's Independent Baseline Function- Mobility Independent Current Functional Impairments (Reported) Functional Limitations- Other moderate difficulty walking 2 blocks, quite a bit of difficulty and pain walking a mile, moderate difficulty wtanding and sitting for a hour, unable to sleep on the left side due to pain PT-OP-C Subjective Start: 06/27/19 11:16 Freq: Status: Active Protocol: Document 08/16/19 14:28 SAK (Rec: 08/16/19 15:17 SAK [id number]) OP-PT Subjective Patient Comments Patient Comments Feeling a little better, still significant pain, can't geto pain clinic early. Can't do clamshell due to pain inner thigh, doing mostly isometrics glut sets and stretching in addition to walking though mostly on level. Using massage roller on quads, hamstrings, ITB, raquetball on gluts. Sleeps best supine, pain sidelying despite use of pillows. PT-OP-F Manual Assessment Start: 06/27/19 11:16 Freq: Status: Active Protocol: Document 06/27/19 11:15 AMH (Rec: 06/28/19 12:57 AMH [email or web address]) Manual Assessments Soft Tissue Assessment Soft Tissue Mobility Assessment tightness of the piriformis, ITB and quadriceps on the left Joint Mobility Assessment Joint Mobility Assessment hypomobility of the left posterior hip capsule with decreased posterior glide Other Manual Assessments Other Manual Assessments Right leg longer in supine ( hx of right KODY) PT-OP-G Mobility & Gait Start: 06/27/19 11:16 Freq: Status: Active Protocol: Document 06/27/19 11:15 AMH (Rec: 06/28/19 12:57 AMH [email or web address]) OP Mobility Evaluation Bed Mobility Rolling pain with rolling on to her side and with sidelying to sit Supine to and from Sit painful but able to do the transfer Functional Movements Other Functional Movements pain with walking up/down stairs, needs to perform step to step pattern OP Gait Assessment Gait Gait Assistance Required: Independent Able to Maintain Weight Bearing Status Yes During Gait Gait Deviations General Gait Pattern Antalgic,Decreased Stride Length,Flexed Trunk Factors Limiting Gait Function Factors Limiting Gait Function Decreased Activity Tolerance, Decreased Strength,Pain Comments Gait Comments pain with gait in the left hip , I talked to Camryn today about using a walking stick or cane for her walks to off load her hip at this time until pain subsides Stair Climbing Evaluation Technique/Endurance Stair Climbing Direction Ascend and Descend Stair Climbing Technique Step to Step Comments Stair Climbing Comments pain with going up and down stairs in the left hip PT-OP-J Posture/Palpation/Skin Start: 06/27/19 11:16 Freq: Status: Active Protocol: Document 06/27/19 11:15 AMH (Rec: 06/28/19 12:57 AMH [email or web address]) Posture Evaluation Position Standing Evaluation View Lateral Head/C-Spine Posture Flexed Weight Distribution Weight Shifted Anterior Comments Posture Comments pt tends to stand with a forward lean Palpation Assessment Location Three Palpation Location left hip greater trochanter Palpation Findings Tenderness Two Palpation Location left piriformis Palpation Findings Soft Tissue Tightness,Muscle Guarding,Tenderness One Palpation Location left ITB proximal insertion Palpation Findings Soft Tissue Tightness, Tenderness PT-OP-K Range of Motion Start: 06/27/19 11:16 Freq: Status: Active Protocol: Document 06/27/19 11:15 AMH (Rec: 06/28/19 12:57 AMH [email or web address]) Hip Goniometric Range of Motion Hip Right Hip ROM WFL No Flexion w/Knee Flexed 100 Straight Leg Raise 70 Extension 5 Left Hip ROM WFL No Testing Position Supine Flexion w/Knee Flexed 90 Straight Leg Raise 60 Extension 0 Hip ROM Limitations Hip ROM Limitations Soft Tissue Tightness Comments limited ROM into hip flexion left, tightness of the left posterior capsule, left iliopsoas tightness with + alessandro test , + Carrol test for ITB tightness PT-OP-L Special Tests Start: 06/27/19 11:16 Freq: Status: Active Protocol: Document 06/27/19 11:15 AMH (Rec: 06/28/19 12:57 AMH [email or web address]) Special Tests Hip Special Tests Obers test Test Results + left Comments ITB tightness Trendelenberg Test Results + Left Alessandro Test Results + Left PT-OP-M Strength Start: 06/27/19 11:16 Freq: Status: Active Protocol: Document 08/03/19 09:43 SAK (Rec: 08/03/19 14:09 SAK [id number]) Hip Strength Hip Manual Muscle Testing Left Flexion (L2) 4- Good- Extension (S1) 2+ Poor+ Abduction 2+ Poor+ External Rotation 3+ Fair+ Internal Rotation 2+ Poor+ Comments Pain with resisted hip flex, abduction, extension, internal rotation PT-OP-Q Treatments Start: 06/27/19 11:16 Freq: Status: Active Protocol: Document 08/16/19 14:28 [facility] (Rec: 08/16/19 15:17 [facility] [id number]) Cardio Equipment Recumbent Stepper (Sci-Fit) Duration (Minutes) 9 Resistance 2 Seat Position 11 Other 5 min UE's and LE's, 4 min LE' s only Therapeutic Exercises Supine Exercises bridge Reps/Minutes 10x TrA with hip ab/ER Resistance L2 TB Reps/Minutes 10x Comments messi and unil TrA with ball squeeze Reps/Minutes 10x hip flex and quad stretch Reps/Minutes 30 x 2 Comments manual quad piriformis stretch Supine Exercise Name passive hip adduction Side left Reps/Minutes 10secs hold x 5 PT-OP-R Modalities Start: 06/27/19 11:16 Freq: Status: Active Protocol: Document 08/16/19 14:28 [facility] (Rec: 08/16/19 15:17 [facility] [id number]) Hot Pack/Cold Pack Treatment L hip Patient Position Hooklying Treatment Duration (minutes) 10 Patient Tolerance Good Iontophoresis Treatment left greater trochanter Treatment Medication Dexamethasone (-) Medication Amount (mL) (ml) 1.0 Medication Dosage 4.0mg/ml Treatment Polarity negative Treatment Duration (minutes) 3 Comment Treatment Comment patient instructed to remove after 6 hours Ultrasound Therapy Treatment left greater trochanter, piriformis Treatment Duration (minutes) 12 Patient Position Sidelying Frequency Setting (mHz) 1 Mode Setting Pulsed Duty Cycle 50% Intensity Setting (w/cm2) 1.4 PT-OP-T Assessment and Plan Start: 06/27/19 11:16 Freq: Status: Active Protocol: Document 08/16/19 14:28 [facility] (Rec: 08/16/19 15:17 [facility] [id number]) Physical Therapy Assessment Goals Five Impairment pain to palpation left bursa, greater trochanter, posterior gluteals Short Term Goal (STG) Camryn no longer c/o pain to palpation over the left bursa , greater trochanter, or gluteal musculature 08/03/19: tenderness persists STG Duration 4 weeks Four Impairment Tightness of the ITB, piriformis, iliopsoas, quads on the left Short Term Goal (STG) Camryn is educated in a home stretching program to address the tightness in the left hip 08/03/19: has been instructed, modification persists STG Duration 2-3 weeks Tractor Trailer Operator Goal (LTG) Improve full painfree hip rom and improve length of the surrounding muscles to decrease pain 08/03/19 initially decrease in pain but has increased again to high level LTG Duration 8 weeks Three Impairment Decreased left hip strength Retirement Goal (LTG) Improve strength of the left hip to 4/5 or greater, especially the gluteals to improve support and improve function. Camryn is independent with a home exercise program for hip strengthening 08/03/19: not achieved, pain with MMT IR, ext, flex, abd LTG Duration 8 weeks Two Impairment limited walking distance to 2 blocks Retirement Goal (LTG) Camryn is able to return to her goal of walking 2-3 miles without a increase in pain symptoms 08/03/19 Had been improving, but again, over past week significant increase LTG Duration 8 weeks+ One Impairment L hip pain rated 7/10, worse walking and with inclines Short Term Goal (STG) Pt is using a walking stick or cane in the right hand to reduce pressure on the left hip and this helps to decrease pain from 7/10 to 4-5/10 08/03/19: pain 7/10 today STG Duration 3-4 weeks Tractor Trailer Operator Goal (LTG) With physical therapy manual techniques and hip stretching/ strengthening Camryn reports a reduction of pain to 2/10 or less. Assessment Summary Assessment Priti noted improvements with backing off ther ex, and with use of iontophoresis and ultrasound. She is unable to tolerate sidelying clamshell, can tolerate hip ab/ER with TB . With Alessandro stretch position hip moves into abduction due to IT band tightness; encouraged to have her assist if does at home. May need further assessment of pelvic alignment . Physical Therapy Plan Therapeutic Interventions Therapeutic Interventions Home Exercise Program,Joint Mobilizations,Manual Therapy, Patient/Caregiver Education, Self-Care/Home Management,Soft Tissue Mobilization,Taping, Therapeutic Exercises Modalities Cold Pack/Ice Massage, Iontophoresis,Ultrasound Next Visit Focus/Plan Next Note Type Re-Evaluation Next Visit Plan Progress ther ex as tolerated including resuming closed chain ther ex as tolerated. ASses pelvic alignment. Gait assessment on treadmill with video. Continue modalities as indicated for pain.
--- NOTE | 2019-08-23 18:41 | PT.OTRE ---
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) Osteoarthritis (Chronic) Osteoporosis (Chronic) Right foot drop (Chronic) Seasonal allergic reaction (Chronic) Thyroid disease (Chronic) Surgical History (Last Updated 12/20/18 @ 20:54 by Jennifer Brooks) Dupuytrens contracture (Resolved ~2009) History of arthroplasty (Resolved ~2009) History of bilateral salpingo-oophorectomy (BSO) (~1975) History of esophagogastroduodenoscopy (EGD) (Resolved) History of hysterectomy (Resolved) History of removal of cyst (Resolved) History of spinal fusion (~1992) History of total right hip arthroplasty (Resolved) S/P BSO (bilateral salpingo-oophorectomy) (Resolved ~1981) Status post breast biopsy (~1993) Status post breast reduction (~2012) Status post colonoscopy (Resolved ~2012) Status post hysterectomy (~1975) Visit Care Team Role Provider Type Alex Townsend MD Attending Provider Physician Primary Care Provider Specialty: Internal Medicine Address: [address] [place] [address], [address], [facility] Email: [email or web address] Physical Therapy Re-Evaluation PT-OP-A Visit Information Start: 06/27/19 11:16 Freq: Status: Active Protocol: Document 08/23/19 12:55 HH (Rec: 08/23/19 18:40 [email or web address]) Out-Patient Physical Therapy Visit Information Visit Information Visit Type Re-Evaluation Visit Start Time 12:55 Visit Stop Time 13:50 Total Visit Minutes 55 Visit Number 11/16 Number of DROP BOARD WORKER Visits 0 PT-OP-B Current Condition Start: 06/27/19 11:16 Freq: Status: Active Protocol: Document 06/27/19 11:17 [facility] (Rec: 06/27/19 11:27 [facility] [id number]) Current Condition History of Current Condition Onset Date a few years onset History of Current Condition A few years ago Camryn [place], saw Dr. Rodriguez for the left knee as he had done her right KODY 2009, she had cortisone injections in the left knee, She was told to try PT for her hip. She currently walks 4 miles per day, it got better and then worse and then she went to PT again which helped. Since that time she underwent foot surgery on the left foot to remove bone spurs in June 2018. She used a scooter with her L LE resting on it for a period of 3 weeks. Her symptoms of posterior buttock pain have progressively worsened to where she cant sleep in the left side, cant walk more than 1/4 mile due to pain. She has to sit on ice following walking. Dr. Fish wants her to do cortisone injections. She has a appointment 07/26/[address] Kaur information assistant for a cortisone injetion. She is taking Alieve 2 times per day. Her pain is rated 7/10 in the posterior gluteals. She experiences increased pain with hip flexion. She reports walking up inclines is horrible and with inclines her pain can radiate to the anterior hip. She has a Hx of L5-S 1 herniated 1992 and surgery in then rehernaited in and surgery. Other past medical history includes thyroid disorder and osteoporosis. Treatment Goals Patient/Caregiver Goals The patients goals include decreasing pain and improving her ability to walk. She likes to go for regular walks for exercise and this is very impaired at this time. Prior Functional Status Baseline Function- ADL's Independent Baseline Function- Mobility Independent Current Functional Impairments (Reported) Functional Limitations- Other moderate difficulty walking 2 blocks, quite a bit of difficulty and pain walking a mile, moderate difficulty wtanding and sitting for a hour, unable to sleep on the left side due to pain PT-OP-C Subjective Start: 06/27/19 11:16 Freq: Status: Active Protocol: Document 08/23/19 12:55 HH (Rec: 08/23/19 18:40 HH [email or web address]) OP-PT Subjective Patient Comments Patient Comments My L hip soreness just never goes away. But i am still able to walk 3 miles a day and my strength and balance did get better since evaluation except my soreness sensation. PT-OP-F Manual Assessment Start: 06/27/19 11:16 Freq: Status: Active Protocol: Document 06/27/19 11:15 [facility] (Rec: 06/28/19 12:57 [facility] [email or web address]) Manual Assessments Soft Tissue Assessment Soft Tissue Mobility Assessment tightness of the piriformis, ITB and quadriceps on the left Joint Mobility Assessment Joint Mobility Assessment hypomobility of the left posterior hip capsule with decreased posterior glide Other Manual Assessments Other Manual Assessments Right leg longer in supine ( hx of right KODY) PT-OP-G Mobility & Gait Start: 06/27/19 11:16 Freq: Status: Active Protocol: Document 06/27/19 11:15 [facility] (Rec: 06/28/19 12:57 [facility] [email or web address]) OP Mobility Evaluation Bed Mobility Rolling pain with rolling on to her side and with sidelying to sit Supine to and from Sit painful but able to do the transfer Functional Movements Other Functional Movements pain with walking up/down stairs, needs to perform step to step pattern OP Gait Assessment Gait Gait Assistance Required: Independent Able to Maintain Weight Bearing Status Yes During Gait Gait Deviations General Gait Pattern Antalgic,Decreased Stride Length,Flexed Trunk Factors Limiting Gait Function Factors Limiting Gait Function Decreased Activity Tolerance, Decreased Strength,Pain Comments Gait Comments pain with gait in the left hip , I talked to Camryn today about using a walking stick or cane for her walks to off load her hip at this time until pain subsides Stair Climbing Evaluation Technique/Endurance Stair Climbing Direction Ascend and Descend Stair Climbing Technique Step to Step Comments Stair Climbing Comments pain with going up and down stairs in the left hip PT-OP-J Posture/Palpation/Skin Start: 06/27/19 11:16 Freq: Status: Active Protocol: Document 06/27/19 11:15 [facility] (Rec: 06/28/19 12:57 [facility] [email or web address]) Posture Evaluation Position Standing Evaluation View Lateral Head/C-Spine Posture Flexed Weight Distribution Weight Shifted Anterior Comments Posture Comments pt tends to stand with a forward lean Palpation Assessment Location Three Palpation Location left hip greater trochanter Palpation Findings Tenderness Two Palpation Location left piriformis Palpation Findings Soft Tissue Tightness,Muscle Guarding,Tenderness One Palpation Location left ITB proximal insertion Palpation Findings Soft Tissue Tightness, Tenderness PT-OP-K Range of Motion Start: 06/27/19 11:16 Freq: Status: Active Protocol: Document 08/23/19 12:55 HH (Rec: 08/23/19 18:40 HH [email or web address]) Hip Goniometric Range of Motion Hip Measured in Degrees Right Hip ROM WFL Yes Left Hip ROM WFL Yes PT-OP-L Special Tests Start: 06/27/19 11:16 Freq: Status: Active Protocol: Document 06/27/19 11:15 [facility] (Rec: 06/28/19 12:57 [facility] [email or web address]) Special Tests Hip Special Tests Obers test Test Results + left Comments ITB tightness Trendelenberg Test Results + Left Alessandor Test Results + Left PT-OP-M Strength Start: 06/27/19 11:16 Freq: Status: Active Protocol: Document 08/23/19 12:55 HH (Rec: 08/23/19 18:40 HH [email or web address]) Hip Strength Hip Manual Muscle Testing Right Flexion (L2) 4+ Good+ Extension (S1) 4+ Good+ Abduction 4+ Good+ Adduction 4+ Good+ External Rotation 4+ Good+ Left Flexion (L2) 4- Good- Extension (S1) 3 Fair Abduction 3 Fair External Rotation 3+ Fair+ Internal Rotation 3 Fair Comments Pain with resisted hip abd, ext PT-OP-Q Treatments Start: 06/27/19 11:16 Freq: Status: Active Protocol: Document 08/23/19 12:55 HH (Rec: 08/23/19 18:40 HH [email or web address]) Cardio Equipment Recumbent Stepper (Sci-Fit) Duration (Minutes) 9 Resistance 2 Seat Position 11 Other 5 min UE's and LE's, 4 min LE' s only Therapeutic Exercises Supine Exercises piriformis stretch Supine Exercise Name figure 4 Side left Reps/Minutes 10secs hold x 5 Standing Exercises single leg stance with weight shift Standing Exercise Name use //bar for support Side bilateral Reps/Minutes 10 mins Comments Need cues to maintain midline Manual Therapy Treatment Soft Tissue Mobilization L piriformis Mobilization Type Sustained Pressure,Trigger Point Release Intensity/Depth Moderate Body Position Sidelying L gluteal Mobilization Type Cross-Friction,Sustained Pressure,Trigger Point Release Intensity/Depth Moderate Body Position Sidelying PT-OP-R Modalities Start: 06/27/19 11:16 Freq: Status: Active Protocol: Document 08/16/19 14:28 [facility] (Rec: 08/16/19 15:17 [facility] [id number]) Hot Pack/Cold Pack Treatment L hip Patient Position Hooklying Treatment Duration (minutes) 10 Patient Tolerance Good Iontophoresis Treatment left greater trochanter Treatment Medication Dexamethasone (-) Medication Amount (mL) (ml) 1.0 Medication Dosage 4.0mg/ml Treatment Polarity negative Treatment Duration (minutes) 3 Comment Treatment Comment patient instructed to remove after 6 hours Ultrasound Therapy Treatment left greater trochanter, piriformis Treatment Duration (minutes) 12 Patient Position Sidelying Frequency Setting (mHz) 1 Mode Setting Pulsed Duty Cycle 50% Intensity Setting (w/cm2) 1.4 PT-OP-T Assessment and Plan Start: 06/27/19 11:16 Freq: Status: Active Protocol: Document 08/23/19 12:55 HH (Rec: 08/23/19 18:40 HH [email or web address]) Physical Therapy Assessment Goals stair climbing Impairment pt is using UE support for stair climbing Ui Application Developer Goal (LTG) Pt will be able to climb stairs without UE support, along with a step over pattern LTG Duration 4 weeks Five Impairment pain to palpation left bursa, greater trochanter, posterior gluteals Short Term Goal (STG) Camryn no longer c/o pain to palpation over the left bursa, greater trochanter, or gluteal musculature 08/23/19: tenderness persists STG Duration 4 weeks Four Impairment Tightness of the ITB, piriformis, iliopsoas, quads on the left Short Term Goal (STG) Camryn is educated in a home stretching program to address the tightness in the left hip 08/03/19: has been instructed, modification persists STG Duration 2-3 weeks Ui Application Developer Goal (LTG) Improve full painfree hip rom and improve length of the surrounding muscles to decrease pain 08/03/19 initially decrease in pain. Her soreness has been constant but has not been increased signficantly. LTG Duration 8 weeks Three Impairment Decreased left hip strength Ui Application Developer Goal (LTG) Improve strength of the left hip to 4/5 or greater, especially the gluteals to improve support and improve function. Camryn is independent with a home exercise program for hip strengthening 08/23: cont to improve with grossly 3- to 3+ for L hip ext , abd and ER. LTG Duration 8 weeks Two Impairment limited walking distance to 2 blocks Ui Application Developer Goal (LTG) Camryn is able to return to her goal of walking 2-3 miles without a increase in pain symptoms 08/03/19 Had been improving, but again, over past few week significant increase in soreness but not pain LTG Duration 8 weeks+ One Impairment L hip pain rated 7/10, worse walking and with inclines Short Term Goal (STG) Pt is using a walking stick or cane in the right hand to reduce pressure on the left hip and this helps to decrease pain from 7/10 to 4-5/10 08/03/19: pain 7/10 today STG Duration 3-4 weeks Ui Application Developer Goal (LTG) 08/23; Cont in progress With physical therapy manual techniques and hip stretching/ strengthening Camryn reports a reduction of pain to 2/10 or less. Progress Towards Goals Progress Towards Goals Slow Progress - Other Assessment Summary Assessment Pt did notice her overall strength and balance improved since IE except her L hip soreness. Pt also stated she requires less support from UEs during stair negotiation now. Educated pt on reducing her daily walking miles/ use of walking sticks. During reassessment, pt also noticed there's increased L hip soreness during single leg stance on L with weight shift to L, but decreased pain with cues maintaining a straight line. Added single leg stance without weight shift as new HEP. Pt will need skilled therapy to improve pt's L hip stability and strength in order to optimize her gait without compensation. Physical Therapy Plan Frequency and Duration Frequency of Treatment 2x/Week Duration of Treatment 6 weeks Plan of Care Start Date 08/23/19 Plan of Care End Date 10/07/19 Therapeutic Interventions Therapeutic Interventions Aquatic Therapy,Balance Training,Gait Training,Home Exercise Program,Joint Mobilizations,Manual Therapy, Neuromuscular Re-education, Patient/Caregiver Education, Self-Care/Home Management,Soft Tissue Mobilization,Taping, Therapeutic Activities, Therapeutic Exercises Modalities Cold Pack/Ice Massage,Electric Stimulation,Hot Packs, Infrared Therapy,Iontophoresis ,Traction- Mechanical, Ultrasound Next Visit Focus/Plan Next Note Type Treatment Note Next Visit Plan reassess HEP and pt's single leg stance. Progress ther ex as tolerated including resuming closed chain ther ex as tolerated. ASses pelvic alignment. Gait assessment on treadmill with video. Continue modalities as indicated for pain.
--- NOTE | 2019-08-23 18:45 | PT.OPPOC ---
Current Diagnoses Pain in left hip (08/23/19) Visit Care Team Role Provider Type Alxe Townsend MD Attending Provider Physician Primary Care Provider Specialty: Internal Medicine Address: [address] [place] [address], [address], [place], [address] Email: [email or web address] Plan Of Care PT-OP-T Assessment and Plan Start: 06/27/19 11:16 Freq: Status: Active Protocol: Document 08/23/19 12:55 HH (Rec: 08/23/19 18:40 HH [email or web address]) Physical Therapy Assessment Goals stair climbing Impairment pt is using UE support for stair climbing Range Rider Goal (LTG) Pt will be able to climb stairs without UE support, along with a step over pattern LTG Duration 4 weeks Five Impairment pain to palpation left bursa, greater trochanter, posterior gluteals Short Term Goal (STG) Camryn no longer c/o pain to palpation over the left bursa, greater trochanter, or gluteal musculature 08/23/19: tenderness persists STG Duration 4 weeks Four Impairment Tightness of the ITB, piriformis, iliopsoas, quads on the left Short Term Goal (STG) Camryn is educated in a home stretching program to address the tightness in the left hip 08/03/19: has been instructed, modification persists STG Duration 2-3 weeks Range Rider Goal (LTG) Improve full painfree hip rom and improve length of the surrounding muscles to decrease pain 08/03/19 initially decrease in pain. Her soreness has been constant but has not been increased signficantly. LTG Duration 8 weeks Three Impairment Decreased left hip strength Range Rider Goal (LTG) Improve strength of the left hip to 4/5 or greater, especially the gluteals to improve support and improve function. Camryn is independent with a home exercise program for hip strengthening 08/23: cont to improve with grossly 3- to 3+ for L hip ext , abd and ER. LTG Duration 8 weeks Two Impairment limited walking distance to 2 blocks Penitentiary Goal (LTG) Camryn is able to return to her goal of walking 2-3 miles without a increase in pain symptoms 08/03/19 Had been improving, but again, over past few week significant increase in soreness but not pain LTG Duration 8 weeks+ One Impairment L hip pain rated 7/10, worse walking and with inclines Short Term Goal (STG) Pt is using a walking stick or cane in the right hand to reduce pressure on the left hip and this helps to decrease pain from 7/10 to 4-5/10 08/03/19: pain 7/10 today STG Duration 3-4 weeks Range Rider Goal (LTG) 08/23; Cont in progress With physical therapy manual techniques and hip stretching/ strengthening Camryn reports a reduction of pain to 2/10 or less. Progress Towards Goals Progress Towards Goals Slow Progress - Other Assessment Summary Assessment Pt did notice her overall strength and balance improved since IE except her L hip soreness. Pt also stated she requires less support from UEs during stair negotiation now. Educated pt on reducing her daily walking miles/ use of walking sticks. During reassessment, pt also noticed there's increased L hip soreness during single leg stance on L with weight shift to L, but decreased pain with cues maintaining a straight line. Added single leg stance without weight shift as new HEP. Pt will need skilled therapy to improve pt's L hip stability and strength in order to optimize her gait without compensation. Physical Therapy Plan Frequency and Duration Frequency of Treatment 2x/Week Duration of Treatment 6 weeks Plan of Care Start Date 08/23/19 Plan of Care End Date 10/07/19 Therapeutic Interventions Therapeutic Interventions Aquatic Therapy,Balance Training,Gait Training,Home Exercise Program,Joint Mobilizations,Manual Therapy, Neuromuscular Re-education, Patient/Caregiver Education, Self-Care/Home Management,Soft Tissue Mobilization,Taping, Therapeutic Activities, Therapeutic Exercises Modalities Cold Pack/Ice Massage,Electric Stimulation,Hot Packs, Infrared Therapy,Iontophoresis ,Traction- Mechanical, Ultrasound Next Visit Focus/Plan Next Note Type Treatment Note Next Visit Plan reassess HEP and pt's single leg stance. Progress ther ex as tolerated including resuming closed chain ther ex as tolerated. ASses pelvic alignment. Gait assessment on treadmill with video. Continue modalities as indicated for pain. Plan of Care Dates Plan of Care Start Date 08/23/19 Plan of Care End Date 10/07/19
--- NOTE | 2019-09-04 16:21 | PT.OTN ---
Current Diagnoses Pain in left hip (09/04/19) Physical Therapy Treatment Note PT-OP-A Visit Information Start: 06/27/19 11:16 Freq: Status: Active Protocol: Document 09/04/19 09:00 LJ (Rec: 09/04/19 16:21 LJ [email or web address]) Out-Patient Physical Therapy Visit Information Visit Information Visit Type Treatment Note Visit Start Time 09:00 Visit Stop Time 09:45 Total Visit Minutes 45 Visit Number Number of [employer] MANAGER Visits 1 PT-OP-B Current Condition Start: 06/27/19 11:16 Freq: Status: Active Protocol: Document 06/27/19 11:17 AMH (Rec: 06/27/19 11:27 AMH [id number]) Current Condition History of Current Condition Onset Date a few years onset History of Current Condition A few years ago Camryn [place], saw Dr. Rodriguez for the left knee as he had done her right KODY 2009, she had cortisone injections in the left knee, She was told to try PT for her hip. She currently walks 4 miles per day, it got better and then worse and then she went to PT again which helped. Since that time she underwent foot surgery on the left foot to remove bone spurs in June 2018. She used a scooter with her L LE resting on it for a period of 3 weeks. Her symptoms of posterior buttock pain have progressively worsened to where she cant sleep in the left side, cant walk more than 1/4 mile due to pain. She has to sit on ice following walking. Dr. Fish wants her to do cortisone injections. She has a appointment 07/26/[address] Kaur bilingual executive assistant for a cortisone injetion. She is taking Alieve 2 times per day. Her pain is rated 7/10 in the posterior gluteals. She experiences increased pain with hip flexion. She reports walking up inclines is horrible and with inclines her pain can radiate to the anterior hip. She has a Hx of L5-S 1 herniated 1992 and surgery in then rehernaited in and surgery. Other past medical history includes thyroid disorder and osteoporosis. Treatment Goals Patient/Caregiver Goals The patients goals include decreasing pain and improving her ability to walk. She likes to go for regular walks for exercise and this is very impaired at this time. Prior Functional Status Baseline Function- ADL's Independent Baseline Function- Mobility Independent Current Functional Impairments (Reported) Functional Limitations- Other moderate difficulty walking 2 blocks, quite a bit of difficulty and pain walking a mile, moderate difficulty wtanding and sitting for a hour, unable to sleep on the left side due to pain PT-OP-C Subjective Start: 06/27/19 11:16 Freq: Status: Active Protocol: Document 09/04/19 09:00 LJ (Rec: 09/04/19 16:21 LJ [email or web address]) OP-PT Subjective Patient Comments Patient Comments Pt states she is seeing Dr. Rodriguez to try to get a steroid injection for her hip. She is still experiencing pain in her hip and not able to get much sleep due to pain waking her up. PT-OP-F Manual Assessment Start: 06/27/19 11:16 Freq: Status: Active Protocol: Document 06/27/19 11:15 AMH (Rec: 06/28/19 12:57 AMH [email or web address]) Manual Assessments Soft Tissue Assessment Soft Tissue Mobility Assessment tightness of the piriformis, ITB and quadriceps on the left Joint Mobility Assessment Joint Mobility Assessment hypomobility of the left posterior hip capsule with decreased posterior glide Other Manual Assessments Other Manual Assessments Right leg longer in supine ( hx of right KODY) PT-OP-G Mobility & Gait Start: 06/27/19 11:16 Freq: Status: Active Protocol: Document 06/27/19 11:15 AMH (Rec: 06/28/19 12:57 AMH [email or web address]) OP Mobility Evaluation Bed Mobility Rolling pain with rolling on to her side and with sidelying to sit Supine to and from Sit painful but able to do the transfer Functional Movements Other Functional Movements pain with walking up/down stairs, needs to perform step to step pattern OP Gait Assessment Gait Gait Assistance Required: Independent Able to Maintain Weight Bearing Status Yes During Gait Gait Deviations General Gait Pattern Antalgic,Decreased Stride Length,Flexed Trunk Factors Limiting Gait Function Factors Limiting Gait Function Decreased Activity Tolerance, Decreased Strength,Pain Comments Gait Comments pain with gait in the left hip , I talked to Camryn today about using a walking stick or cane for her walks to off load her hip at this time until pain subsides Stair Climbing Evaluation Technique/Endurance Stair Climbing Direction Ascend and Descend Stair Climbing Technique Step to Step Comments Stair Climbing Comments pain with going up and down stairs in the left hip PT-OP-J Posture/Palpation/Skin Start: 06/27/19 11:16 Freq: Status: Active Protocol: Document 06/27/19 11:15 AMH (Rec: 06/28/19 12:57 AMH [email or web address]) Posture Evaluation Position Standing Evaluation View Lateral Head/C-Spine Posture Flexed Weight Distribution Weight Shifted Anterior Comments Posture Comments pt tends to stand with a forward lean Palpation Assessment Location Three Palpation Location left hip greater trochanter Palpation Findings Tenderness Two Palpation Location left piriformis Palpation Findings Soft Tissue Tightness,Muscle Guarding,Tenderness One Palpation Location left ITB proximal insertion Palpation Findings Soft Tissue Tightness, Tenderness PT-OP-K Range of Motion Start: 06/27/19 11:16 Freq: Status: Active Protocol: Document 08/23/19 12:55 HH (Rec: 08/23/19 18:40 HH [email or web address]) Hip Goniometric Range of Motion Hip Right Hip ROM WFL Yes Left Hip ROM WFL Yes PT-OP-L Special Tests Start: 06/27/19 11:16 Freq: Status: Active Protocol: Document 06/27/19 11:15 AMH (Rec: 06/28/19 12:57 AMH [email or web address]) Special Tests Hip Special Tests Obers test Test Results + left Comments ITB tightness Trendelenberg Test Results + Left Alessandro Test Results + Left PT-OP-M Strength Start: 06/27/19 11:16 Freq: Status: Active Protocol: Document 08/23/19 12:55 HH (Rec: 08/23/19 18:40 HH [email or web address]) Hip Strength Hip Manual Muscle Testing Right Flexion (L2) 4+ Good+ Extension (S1) 4+ Good+ Abduction 4+ Good+ Adduction 4+ Good+ External Rotation 4+ Good+ Left Flexion (L2) 4- Good- Extension (S1) 3 Fair Abduction 3 Fair External Rotation 3+ Fair+ Internal Rotation 3 Fair Comments Pain with resisted hip abd, ext PT-OP-Q Treatments Start: 06/27/19 11:16 Freq: Status: Active Protocol: Document 09/04/19 09:00 LJ (Rec: 09/04/19 16:21 LJ [email or web address]) Cardio Equipment Recumbent Stepper (Sci-Fit) Duration (Minutes) 8 Resistance 4 Seat Position 11 Other LE and UE enire time Therapeutic Exercises Supine Exercises hip flex and quad stretch Reps/Minutes 30 x 2 Comments manual quad piriformis stretch Supine Exercise Name figure 4 Side left Reps/Minutes 10secs hold x 5 2 Supine Exercise Name single knee to chest stretch Side bilateral Reps/Minutes 2 x 30 sec + Sidelying Exercises ITB stretch Sidelying Exercise Name ITB Side right Reps/Minutes 2x45 Manual Therapy Treatment Soft Tissue Mobilization L piriformis Mobilization Type Sustained Pressure,Trigger Point Release Intensity/Depth Moderate Body Position Sidelying L gluteal Mobilization Type Cross-Friction,Sustained Pressure,Trigger Point Release Intensity/Depth Moderate Body Position Sidelying 1 Body Location left ITB Mobilization Type Cross-Friction,Sustained Pressure,Trigger Point Release Intensity/Depth Moderate Body Position Sidelying Self-Care/Home Management Treatment Education Patient Education Body Mechanics,Home Exercise Program,Pain Management Other Education reviewed pt HEP in which she demonstrated several reps of each exercise she does on a daily basis. Pt had good understanding and good form with exercises. Advised pt on foam rolling and ball rolling against wall for piriformis and ITB release PT-OP-R Modalities Start: 06/27/19 11:16 Freq: Status: Active Protocol: Document 08/16/19 14:28 SAK (Rec: 08/16/19 15:17 SAK [id number]) Hot Pack/Cold Pack Treatment L hip Patient Position Hooklying Treatment Duration (minutes) 10 Patient Tolerance Good Iontophoresis Treatment left greater trochanter Treatment Medication Dexamethasone (-) Medication Amount (mL) (ml) 1.0 Medication Dosage 4.0mg/ml Treatment Polarity negative Treatment Duration (minutes) 3 Comment Treatment Comment patient instructed to remove after 6 hours Ultrasound Therapy Treatment left greater trochanter, piriformis Treatment Duration (minutes) 12 Patient Position Sidelying Frequency Setting (mHz) 1 Mode Setting Pulsed Duty Cycle 50% Intensity Setting (w/cm2) 1.4 PT-OP-T Assessment and Plan Start: 06/27/19 11:16 Freq: Status: Active Protocol: Document 09/04/19 09:00 EDNA (Rec: 09/04/19 16:21 LJ [email or web address]) Physical Therapy Assessment Rehab Potential Rehabilitation Potential Good Evaluation Complexity Number of Personal Factors/Comorbidities 0 Number of Body Systems Impaired 1-2 Clinical Presentation at Evaluation Stable Impairments Impairments Activity Tolerance,Functional Activities,Functional Mobility ,Gait,Pain,ROM,Soft Tissue Mobility,Strength Goals stair climbing Impairment pt is using UE support for stair climbing Nursing Home Goal (LTG) Pt will be able to climb stairs without UE support, along with a step over pattern LTG Duration 4 weeks Five Impairment pain to palpation left bursa, greater trochanter, posterior gluteals Short Term Goal (STG) Camryn no longer c/o pain to palpation over the left bursa, greater trochanter, or gluteal musculature 08/23/19: tenderness persists STG Duration 4 weeks Four Impairment Tightness of the ITB, piriformis, iliopsoas, quads on the left Short Term Goal (STG) Camryn is educated in a home stretching program to address the tightness in the left hip 08/03/19: has been instructed, modification persists STG Duration 2-3 weeks Skin Drier Goal (LTG) Improve full painfree hip rom and improve length of the surrounding muscles to decrease pain 08/03/19 initially decrease in pain. Her soreness has been constant but has not been increased signficantly. LTG Duration 8 weeks Three Impairment Decreased left hip strength Nursing Home Goal (LTG) Improve strength of the left hip to 4/5 or greater, especially the gluteals to improve support and improve function. Camryn is independent with a home exercise program for hip strengthening 08/23: cont to improve with grossly 3- to 3+ for L hip ext , abd and ER. LTG Duration 8 weeks Two Impairment limited walking distance to 2 blocks Nursing Home Goal (LTG) Camryn is able to return to her goal of walking 2-3 miles without a increase in pain symptoms 08/03/19 Had been improving, but again, over past few week significant increase in soreness but not pain LTG Duration 8 weeks+ One Impairment L hip pain rated 7/10, worse walking and with inclines Short Term Goal (STG) Pt is using a walking stick or cane in the right hand to reduce pressure on the left hip and this helps to decrease pain from 7/10 to 4-5/10 08/03/19: pain 7/10 today STG Duration 3-4 weeks Skin Drier Goal (LTG) 08/23; Cont in progress With physical therapy manual techniques and hip stretching/ strengthening Camryn reports a reduction of pain to 2/10 or less. Progress Towards Goals Progress Towards Goals Slow Progress - Other Assessment Summary Assessment Pt demonstrated HEP exercises showing good form and understanding. She was educated on foam rolling and using a ball against the wall for piriformis and ITB. Manual therapy focused on attchment of ITB with cross friction, cconstant pressure with movemennt, and trigger point release. Pt felt releif after session as she walked out of the gym. Physical Therapy Plan Frequency and Duration Frequency of Treatment 2x/Week Duration of Treatment 6 weeks Plan of Care Start Date 08/23/19 Plan of Care End Date 10/07/19 Therapeutic Interventions Therapeutic Interventions Aquatic Therapy,Balance Training,Gait Training,Home Exercise Program,Joint Mobilizations,Manual Therapy, Neuromuscular Re-education, Patient/Caregiver Education, Self-Care/Home Management,Soft Tissue Mobilization,Taping, Therapeutic Activities, Therapeutic Exercises Modalities Cold Pack/Ice Massage,Electric Stimulation,Hot Packs, Infrared Therapy,Iontophoresis ,Traction- Mechanical, Ultrasound Next Visit Focus/Plan Next Note Type Treatment Note Next Visit Plan reassess HEP and pt's single leg stance. Progress ther ex as tolerated including resuming closed chain ther ex as tolerated. ASses pelvic alignment. Gait assessment on treadmill with video. Continue modalities as indicated for pain.
== END 2019-09-05 12:46 ==
LOC: PHYS 09:00
PROVIDERS: PCP Student in an Organized Health Care Education/Training Program; Visit Provider Student in an Organized Health Care Education/Training Program
DX: M25.552 Pain in left hip (principal)
CPT/HCPCS: 97010; 97035; 97110; 97140; 97161; 97164; 97535

== ENCOUNTER → 2019-09-20 15:28 | Outpatient (CLI) | payer MEDICARE, OTHER, SELFPAY ==
--- NOTE | 2019-09-20 15:32 | DI.RAD.S_ITS ---
PROCEDURE: XR LUMBAR SPINE MIN 4V INDICATIONS: L4-5 HNP with left lower extremity radicular TECHNIQUE: 5 views of the lumbar spine were acquired. COMPARISON: [facility], , L-SPINE 2-3 VIEWS, 03/12/2010, 17:07. FINDINGS: Bones: 5 nonrib-bearing vertebrae are present. There is anterolisthesis of L4 on L5 without evidence for pars defects. Moderate-severe mid and lower lumbar facet arthrosis. Multilevel degenerative changes throughout the imaged lumbar spine. No acute vertebral body compression fractures. No suspicious bony lesions. Suggestion of possible partial laminectomy surgical changes at L5. Degenerative changes at the left femoroacetabular joint. Soft tissues: Overlying bowel gas pattern is normal. No suspicious soft tissue calcifications. Status post previous right total hip arthroplasty. Oblique images: No pars defects. IMPRESSION: 1. Multilevel lumbar spondylosis with progression of mid and lower lumbar facet arthropathy. There is new minimal grade 1 anterolisthesis of L4 on L5 likely related to moderate-severe facet arthropathy. No evidence for pars defect on the oblique views. 2. No acute osseous abnormalities identified in the lumbar spine. Dictated by: Nicnaor Miranda M.D. on 09/20/2019 at 17:54 Approved by: Nicanor Miranda M.D. on 09/20/2019 at 17:57
== END ==
PROVIDERS: PCP Student in an Organized Health Care Education/Training Program; Visit Provider Physical Medicine & Rehabilitation
DX: M51.16 Intervertebral disc disorders with radiculopathy, lumbar region (principal); M47.26 Other spondylosis with radiculopathy, lumbar region; Z98.890 Other specified postprocedural states
CPT/HCPCS: 72110; 99214

== ENCOUNTER → 2019-09-29 08:00 | Outpatient (CLI) | payer MEDICARE, OTHER, SELFPAY ==
--- NOTE | 2019-09-29 08:02 | DI.MRI.S_ITS ---
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 In cases with scoliosis, additional coronal T2 fast spin echo may be performed. COMPARISON: [facility], CR, L-SPINE 2-3 VIEWS, 03/12/2010, 17:07. [facility], MR, LUMBAR SPINE W&W/O CONTRAST, 09/08/2005, 9:36. [facility], CR, XR LUMBAR SPINE MIN 4V, 09/20/2019, 15:31. FINDINGS: Image quality: Excellent. Alignment and Curvature: There is grade 1 anterolisthesis at L4-L5. Bone Marrow: Degenerative endplate signal changes are present at T11-T12 and L5-S1. No acute vertebral body compression fractures. Spinal Cord: Conus medullaris terminates at the L1-L2 level. Visualized cord demonstrates normal signal and size. Paraspinous Soft Tissues: No paravertebral masses. T11-T12: Severe loss of disc height and disc desiccation. There is diffuse posterior disc bulge and disc osteophyte complex. Moderate left and mild right facet arthropathy. The central canal is [id number]-[id number] narrowed. Moderate bilateral foraminal stenosis, new since the last exam. T12-L1: Preserved disc height. Mild disc desiccation. There is diffuse posterior disc bulge and disc osteophyte complex. Moderate bilateral facet arthropathy and hypertrophy of ligamentum flavum. The central canal is [id number] narrowed. Moderate bilateral foraminal stenosis, new since the last exam. L1-L2: Preserved disc height. Mild disc desiccation. There is a Schmorl's node in inferior endplate of L1. There is diffuse posterior disc bulge and disc osteophyte complex. Moderate bilateral facet arthropathy and hypertrophy of ligamentum flavum. The central canal is mildly narrowed. Moderate bilateral foraminal stenosis, new since the last exam. L2-L3: Preserved disc height. Mild disc desiccation. There is diffuse posterior disc bulge and disc osteophyte complex. Moderate bilateral facet arthropathy and hypertrophy of ligamentum flavum. The central canal is moderately narrowed. Mild to moderate bilateral foraminal stenosis, new since the last exam. L3-L4: Mild loss of disc height and disc desiccation. There is diffuse posterior disc bulge and disc osteophyte complex. Moderate bilateral facet arthropathy and hypertrophy of ligamentum flavum. The central canal is moderately narrowed. Mild to moderate bilateral foraminal stenosis, increased compared to the last exam. L4-L5: Mild loss of disc height and disc desiccation. There is diffuse posterior disc bulge and disc protrusion. Severe bilateral facet arthropathy and hypertrophy of ligamentum flavum. The central canal is severely narrowed. Moderate bilateral foraminal stenosis, increased compared to the last exam. L5-S1: Right hemilaminectomy. Moderate loss of disc height and disc desiccation. There is diffuse posterior disc bulge. Mild to moderate bilateral facet arthropathy. The central canal is patent. Mild bilateral foraminal stenosis, increased compared to the last exam. IMPRESSION: 1. Progression of degenerative disc and facet disease in lumbar spine as described. 2. Multilevel central canal stenosis, severe at L4-L5, moderate at L2-L3 and L3-L4, and [id number] at several other levels. 3. Multilevel foraminal stenosis as described. Dictated by: Grecia Jacobs M.D. on 09/29/2019 at 10:16 Transcribed by: CHARITY on 09/29/2019 at 10:32 Approved by: Grecia Jacobs M.D. on 09/29/2019 at 17:48
== END ==
PROVIDERS: PCP Student in an Organized Health Care Education/Training Program; Visit Provider Physical Medicine & Rehabilitation
DX: M96.1 Postlaminectomy syndrome, not elsewhere classified (principal); M51.16 Intervertebral disc disorders with radiculopathy, lumbar region; M51.17 Intervertebral disc disorders with radiculopathy, lumbosacral region; M48.061 Spinal stenosis, lumbar region without neurogenic claudication; M48.07 Spinal stenosis, lumbosacral region; M47.26 Other spondylosis with radiculopathy, lumbar region; M47.27 Other spondylosis with radiculopathy, lumbosacral region; M25.552 Pain in left hip
CPT/HCPCS: 72148

== ENCOUNTER 2019-10-24 06:56 | Outpatient (CLI) | payer MEDICARE, OTHER, SELFPAY ==
[2019-10-24] VITALS (8 sets, daily range): BP systolic 139–226; BP diastolic 72–96; PULSE 72–92; RESP 16–18; TEMP 36.8; O2SAT 98–100
--- NOTE | 2019-10-24 06:57 | DI.RAD.S_ITS ---
PROCEDURE: PAIN L/S TRANSFORAMINAL INJECT INDICATIONS: [id number] left L4-5 transforaminal CONSUELO FINDINGS: Fluoroscopic spot filming was performed to verify placement of spinal needles at the L4-L5 level(s), as labeled on the films. Appropriate location(s) of the needle tip(s) was confirmed by injection of iodinated contrast. Dictated by: Benjamin Jenkins M.D. on 10/24/2019 at 12:26 Approved by: Benjamin Jenkins M.D. on 10/24/2019 at 12:27
[2019-10-24] MEDS: MIDAZOLAM 5 MG/5 ML VIAL IV (08:13)
[2019-10-24] MEDS: BETAMETHASONE 30 MG/5 ML MDV 6 MG INJ (08:21)
[2019-10-24] MEDS: BUPIVACAINE 0.25% (PF) VIAL 2 ML INJ (08:22)
[2019-10-24] MEDS: IOPAMIDOL 15 ML VIAL 3 ML INJ (08:22)
[2019-10-24] MEDS: DEXAMETHASONE 10 MG/ML VIAL 20 MG INJ (08:22)
--- NOTE | 2019-10-24 08:25 | PC.NURSE ---
ASSISTING PT OFF TABLE AND TRANSPORTING TO POST PROC AREA IN STABLE CONDITION.
--- NOTE | 2019-10-24 08:30 | P.PCN_ITS ---
Procedures Date/Time Date of procedure: 10/24/19 Time of procedure: 08:30 General Procedure description: PREOP DIAGNOSIS 1. FORMAINAL STENOSIS WITH LE SYMPTOMS POST OP DIAGNOSIS 1. FORMAINAL STENOSIS WITH LE SYMPTOMS PROCEDURES 1. FLUOROSCOPICALLY GUIDED CONTRAST CONTROLLED TRANSFORAMINAL EPIDURAL STEROID INJECTION - LEFT L4/5 PHYSICIAN: Jerrod Spencer DO INDICATIONS: Camryn is referred by Dr. Townsend for treatment of Foraminal Stenosis with Left LE Symptoms FINDINGS Foraminal Nerve Root Compression secondary to disc disease and facet hypertrophy DESCRIPTION OF PROCEDURE: Following review of allergy and review of potential side effects and complications, including, but not necessarily limited to, infection, allergic reaction, local tissue breakdown, stroke, temporary or permanent nerve injury, paralysis, and possible , the patient indicated that the patient understood and agreed to proceed. An informed consent document was signed by the patient, witnessed by a nurse, and placed in the patient's chart. Additionally, other treatment options including medications, modalities, and physical therapy were reviewed with the patient. After review of previous anaesthesic history and IV conscious sedation the pat ient was deemed safe to proceed with todays procedure with IV conscious sedation as ASA class II designation. Safety time-out was performed to confirm patient ID, procedure to be performed and site of procedure. IV sedation was accomplished with a combination of 4mg of Versed administered by the RN after DO order, titrated to patient comfort during the course of the procedure while the patient remained responsive to all verbal commands In the prone position following sterile prep and drape of the lumbar region, the left L4/5 posterior neuroforamen was identified fluoroscopically. The skin was anesthetized via a 25-gauge 1.5-inch needle with 1% lidocaine solution. At this point, a 25-gauge 3.5-inch spinal needle was atraumatically introduced and advanced under fluoroscopic guidance through the posterior left L4/5 neuroforamen to approximately the anterior aspect of the canal. Depth was confirmed on lateral view. Following negative aspiration, injection of approximately 1.5 cc of Isovue 200 under live fluoroscopy in the AP view confirmed excellent flow along the nerve root, into the epidural space without vascular or intrathecal uptake observed Radiological data, including multiple fluoroscopic views of the lumbosacral spine, reveal a spinal needle at the left L4/5 posterior neuroforamen. Subsequent views show flow of contrast material flowing superiorly and inferiorly along the nerve root confirming epidural flow. Subsequently, a test dose of 1.5 cc of 1% lidocaine solution was administered and patient was observed for two minutes for signs or symptoms of complications, including abdominal pain, shortness of breath, bilateral upper or lower extremity weakness, nausea and vomiting, prior to steroid injection. At this point, a total of 3cc or 20mg of dexamethasone and 6mg of betamethasone was injected without incident. The procedure tolerated the procedure well without signs or symptoms of complications prior to transfer to the recovery area continued monitoring without incident. The patient was then transferred to the recovery area where they were observed for an appropriate time after the injection. The patient reported a VAS score of 7 prior to the procedure and a post- procedure VAS of 0. Total Fluoroscopy Time: 20.9 seconds Total Conscious Sedation Time: 24min POST OP INSTRUCTIONS The patient was provided a Pain Log to continue to record their response to the target-specific procedure prior to follow-up visit with their referring physician. Additionally, specific post-injection care instructions and a contact number to our office were provided if concerns arise regarding possible complications associated with the procedure are suspected. Jerrod Spencer DO Complications: none
== END 2019-10-24 08:50 | disposition home or self-care (01) ==
LOC: RAD 06:57
PROVIDERS: PCP Student in an Organized Health Care Education/Training Program; Visit Provider Physical Medicine & Rehabilitation
DX: M48.061 Spinal stenosis, lumbar region without neurogenic claudication (principal); M51.16 Intervertebral disc disorders with radiculopathy, lumbar region
CPT/HCPCS: 64483; 99152; J0702; J1100; J2250; J3010

== ENCOUNTER → 2020-03-06 11:15 | Outpatient (CLI) | payer MEDICARE, OTHER, SELFPAY ==
[2020-03-06 12:08] LABS: BUN Creatinine Ratio 30.8 (6-22); Blood Urea Nitrogen 28 mg/dL (7-17); Calcium 10.1 mg/dL (8.4-10.2); Carbon Dioxide 27 mmol/L (22-32); Chloride 104 mmol/L (98-107); Estimated Glomerular Filt Rate > 60.0 mL/min (>60); Glucose 93 mg/dL (80-110); HEMOLYSIS < 15 (0-50); Sodium 139 mmol/L (137-145); Uric Acid 3.2 mg/dL (2.5-6.2)
== END ==
PROVIDERS: PCP Student in an Organized Health Care Education/Training Program; Referring Provider Student in an Organized Health Care Education/Training Program; Visit Provider Student in an Organized Health Care Education/Training Program
DX: I10 Essential (primary) hypertension (principal); M10.9 Gout, unspecified
CPT/HCPCS: 36415; 80048; 84550

== ENCOUNTER 2020-04-07 18:24 | Emergency (ER) | payer MEDICARE, OTHER, SELFPAY ==
[2020-04-07 18:31] VITALS: BP 159/87; PULSE 71; RESP 16; TEMP 36.1; O2SAT 97; BMI 25.0
--- NOTE | 2020-04-07 20:02 | ED_ITS ---
HPI - Wound/Laceration General Chief Complaint: Wound/Laceration Stated Complaint: tripped over dog, hit her face, multp wounds Time Seen by Provider: 04/07/20 19:41 Source: patient Mode of arrival: Ambulatory Limitations: no limitations History of Present Illness HPI narrative: 74-year-old female here for evaluation of injuries that she sustained when she tripped over her dog at home. She was wearing glasses at the time. She did hit her face on the ground. There was no loss conscious. She is not on anticoagulation. Sustained abrasions to her face and laceration to her forehead. Other than that reports no other injuries. Has no legs or hips arm pain. No neck pain. States she is up-to-date on her tetanus. Related Data Home Medications Medication Instructions Recorded Confirmed [BIOTIN] 5,000 mcg PO QDAY #0 08/31/13 03/06/20 [VITAMIN CODE HEALTHY] 28 mg PO QDAY #0 08/31/13 03/06/20 [CURCUMIN] QDAY #0 04/27/17 03/06/20 vitamin E 400 u PO HS #0 04/27/17 03/06/20 multivitamin 1 cap PO DAILY 07/01/18 03/06/20 fluticasone propionate 50 2 spray NASAL DAILY 03/06/20 03/06/20 mcg/actuation nasal spray,suspension Previous Rx's Medication Instructions Recorded cholecalciferol (vitamin D3) 2,000 iu PO QDAY #30 09/14/12 [Vitamin D3] allopurinol 300 mg tablet 300 mg PO QDAY #90 tab 11/28/19 losartan 25 mg tablet 25 mg PO QDAY #90 tab 11/28/19 metoprolol tartrate 25 mg tablet 12.5 mg PO BID #90 tab 11/28/19 pravastatin 20 mg tablet 20 mg PO DAILY #90 tab 11/28/19 thyroid (pork) 90 mg tablet 90 mg PO DAILY #90 tab 11/28/19 meclizine 25 mg tablet 25 mg PO BID PRN #20 tab 03/06/20 gabapentin 300 mg capsule 300 mg PO TID #90 cap 03/18/20 Allergies Allergy/AdvReac Type Severity Reaction Status Date / Time lisinopril Allergy Severe ANAPHYLAXIS Verified 03/06/20 10:30 amoxicillin Allergy Intermediate HIVES Verified 03/06/20 10:30 adhesive Allergy Mild RASH Verified 03/06/20 10:30 latex Allergy Mild RASH Verified 03/06/20 10:30 Sulfa (Sulfonamide Allergy Mild RASH Verified 03/06/20 10:30 Antibiotics) clavulanic acid AdvReac Mild DIARRHEA Verified 03/06/20 10:30 codeine AdvReac Mild VOMITING Verified 03/06/20 10:30 morphine AdvReac Mild VOMITING Verified 03/06/20 10:30 oxycodone AdvReac Mild VOMITING Verified 03/06/20 10:30 Review of Systems Constitutional Constitutional: Denies frequent falls, Denies headache(s) and Denies weakness Eyes Eyes: Denies change in vision ENT Ears, Nose, Mouth, and Throat: Denies vertigo, Denies dizziness, Denies he adache(s) and Denies disequilibrium Cardiovascular Cardiovascular: Denies chest pain and Denies dyspnea Respiratory Respiratory: Denies dyspnea Gastrointestinal Gastrointestinal: Denies abdominal pain and Denies vomiting Integumentary/Breasts Skin/Breast: Reports wounds Neurologic Neurologic: Denies abnormal speech, Denies behavioral changes, Denies vertigo, Denies dizziness, Denies frequent falls, Denies headache(s), Denies paresthesias, Denies disequilibrium and Denies weakness Psychiatric Psychiatric: Denies behavioral changes Hematologic/Lymphatic Hematologic/Lymphatic: Denies easy bleeding and Denies easy bruising Patient History Medical History 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) Asthma (Chronic) Bruises easily (Chronic) Chronic diarrhea (Chronic) DDD (degenerative disc disease) (Chronic) Endometriosis (Chronic) Essential tremor (Chronic) Foraminal stenosis of lumbar region (Chronic) GERD (gastroesophageal reflux disease) (Chronic) Gout (Resolved) Greater trochanteric bursitis of left hip (Acute) Herniated nucleus pulposus, L4-5 (Acute) History of environmental allergies (Chronic) Hypertension (Chronic) IBS (irritable bowel syndrome) (Chronic) 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) Lumbosacral spondylosis with radiculopathy (Acute) Osteoarthritis (Chronic) Osteoporosis (Chronic) Otitis externa (Resolved) Right foot drop (Chronic) Seasonal allergic reaction (Chronic) Thyroid disease (Chronic) Surgical History Dupuytrens contracture (Resolved ~2009) History of arthroplasty (Resolved ~2009) History of bilateral salpingo-oophorectomy (BSO) (~1975) History of esophagogastroduodenoscopy (EGD) (Resolved) History of hysterectomy (Resolved) History of lumbar laminectomy (Acute) History of removal of cyst (Resolved) History of spinal fusion (~1992) History of total right hip arthroplasty (Resolved) S/P BSO (bilateral salpingo-oophorectomy) (Resolved ~1981) Status post breast biopsy (~1993) Status post breast reduction (~2012) Status post colonoscopy (Resolved ~2012) Status post hysterectomy (~1975) Social History household members: spouse Smoking Status: Former smoker alcohol intake: current Smoking Status: Former smoker alcohol intake frequency: 0-2 drinks per day Exam Initial Vital Signs Initial Vital Signs: Vital Signs Temperature 96.9 F L 04/07/20 18:31 Pulse Rate 71 04/07/20 18:31 Respiratory Rate 16 04/07/20 18:31 Blood Pressure 159/87 H 04/07/20 18:31 Pulse Oximetry 97 04/07/20 18:31 Const General: cooperative and healthy appearing Limitations: mental status not altered HENMT Head: abrasion and laceration Nose: septum normal and No nasal discharge Face and sinus: abrasion Mouth: oral mucosae normal Teeth and gingiva: dentition normal Resp Effort & Inspection: normal respiratory effort Skin Other: Abrasion on the right cheek and on the left side of the nose. Also has abrasion above her upper lip. Has a 3 cm laceration midline on her forehead. Neuro General: alert, awake and oriented x3 Cognition: normal cognition Speech: speech normal Extrem General: normal to inspection and capillary refill normal Procedures Laceration Repair Laceration 1: Site: face (Forehead) Size (cm): 3 Description: linear Depth: simple, single layer Local Anesthetic: lidocaine 1% and with bicarb Amount of anesthesia used (mL): 5 Pre-repair: irrigated extensively and deep structures intact Skin layer closed with: nylon Size (cm): 4-0 Number of sutures: 2 Technique: simple, interrupted Scores GCS Meghann coma scale eye opening: Spontaneous [place] coma scale verbal response: Orientated Meghann coma scale motor response: Obey commands Meghann coma scale total score: 15 Nexus Score for C-Spine Focal Neurologic deficit present: No Midline spinal tenderness present: No Altered level of conciousness present: No Intoxication present: No Distracting Injury Present: No Nexus Criteria for C-spine: 0 Course Orders Ordered: Discontinued Medications Bacitracin (Bacitracin) 3 applic TOP NOW ONE Stop: 04/07/20 20:12 Last Admin: 04/07/20 20:21 Dose: 3 applic Documented by: MANDO Lidocaine/Epinephrine (Xylocaine 1% W/Epi) 1 ml SUBCUT NOW ONE Stop: 04/07/20 20:03 Last Admin: 04/07/20 20:20 Dose: 1 ml Documented by: MANDO Vital Signs Vital signs: Vital Signs - 8 hr 04/07/20 18:31 04/07/20 20:29 Temperature 96.9 F L 97.8 F Pulse Rate 71 73 Respiratory Rate 16 18 Blood Pressure 159/87 H 150/70 H Pulse Oximetry 97 98 MDM - Wound/Laceration MDM Narrative Medical decision making narrative: Feel we can hold on radiologic studies. Neck is cleared by nexus criteria. She is no reported orthopedic injuries. Ambulated in without problems. Has multiple abrasions on her face. These need no intervention here in the emergency department. The laceration on her forehead was closed as described above. Patient was given care instructions and return precautions. She expressed understanding and agreement. Discharge Plan Departure Patient Disposition: Home Clinical Impression: Laceration, Abrasion Discharge Date/Time: 04/07/20 20:29 Instructions: DI for Laceration Repair Activity Restrictions/Additional Instructions: The stitches that were placed do need to be removed in 7-10 days. Until then you can shower like normal. You can use soap and water like normal. Recommend that you do put on a topical antibiotic ointment. Contact her primary provider for follow-up. Return to the emergency department for any new or worsening symptoms Prescriptions: No Action cholecalciferol (vitamin D3) [Vitamin D3] 2,000 UNIT capsule 2,000 iu PO QDAY Qty: 30 RF: 0 [BIOTIN] 5,000 mcg PO QDAY Qty: 0 RF: 0 [VITAMIN CODE HEALTHY] 28 mg PO QDAY Qty: 0 RF: 0 vitamin E 100 UNIT capsule 400 u PO HS Qty: 0 RF: 0 [CURCUMIN] QDAY Qty: 0 RF: 0 allopurinol 300 mg tablet 300 mg PO QDAY Qty: 90 RF: 2 losartan 25 mg tablet 25 mg PO QDAY Qty: 90 RF: 2 metoprolol tartrate 25 mg tablet 12.5 mg PO BID Qty: 90 RF: 2 pravastatin 20 mg tablet 20 mg PO DAILY Qty: 90 RF: 2 thyroid (pork) 90 mg tablet 90 mg PO DAILY Qty: 90 RF: 2 gabapentin 300 mg capsule 300 mg PO TID Qty: 90 RF: 2 fluticasone propionate [Flonase Allergy Relief] 50 mcg/actuation spray,suspension 2 spray NASAL DAILY RF: 0 meclizine 25 mg tablet 25 mg PO BID PRN (Reason: vertigo) Qty: 20 RF: 2 multivitamin Capsule 1 cap PO DAILY RF: 0 Referrals: Alex Townsend MD [Primary Care Provider] -
[2020-04-07] MEDS: LIDOCAINE 1% W/EPI 1 ML SUBCUT (20:20)
[2020-04-07] MEDS: BACITRACIN OINT 0.9 GM PCKT 3 APPLIC TOP (20:21)
[2020-04-07 20:29] VITALS: BP 150/70; PULSE 73; RESP 18; TEMP 36.6; O2SAT 98
== END 2020-04-07 20:29 | disposition home or self-care (01) ==
PROVIDERS: Emergency Provider Emergency Medicine; PCP Student in an Organized Health Care Education/Training Program
DX: S01.81XA Laceration without foreign body of other part of head, initial encounter (principal); W01.198A Fall on same level from slipping, tripping and stumbling with subsequent striking against other object, initial encounter
CPT/HCPCS: 12013; 99283

== ENCOUNTER → 2020-04-20 09:07 | Outpatient (CLI) | payer MEDICARE, OTHER, SELFPAY ==
[2020-04-21 08:21] LABS: COVID19 Sendout Not Detected (Not Detect)
== END ==
PROVIDERS: PCP Student in an Organized Health Care Education/Training Program; Visit Provider Physician Assistant
DX: Z01.818 Encounter for other preprocedural examination (principal)
CPT/HCPCS: 87635

== ENCOUNTER 2020-04-23 08:17 | Outpatient (CLI) | payer MEDICARE, OTHER, SELFPAY ==
[2020-04-23] VITALS (9 sets, daily range): BP systolic 125–167; BP diastolic 59–89; PULSE 74–88; RESP 15–16; TEMP 37.3; O2SAT 98–100
--- NOTE | 2020-04-23 08:19 | DI.RAD.S_ITS ---
PROCEDURE: PAIN L/S TRANSFORAMINAL INJECT INDICATIONS: SPONDYLOSIS FINDINGS: Fluoroscopic spot filming was performed to verify placement of spinal needles at the L4-L5 level(s), as labeled on the films. Appropriate location(s) of the needle tip(s) was confirmed by injection of iodinated contrast. Dictated by: Benjamin Jenkins M.D. on 04/23/2020 at 10:40 Approved by: Benjamin Jenkins M.D. on 04/23/2020 at 10:40
[2020-04-23] MEDS: MIDAZOLAM 5 MG/5 ML VIAL IV (09:56)
[2020-04-23] MEDS: IOPAMIDOL 15 ML VIAL 3 ML INJ (10:02)
[2020-04-23] MEDS: BUPIVACAINE 0.25% (PF) VIAL 2 ML INJ (10:02)
[2020-04-23] MEDS: BETAMETHASONE 30 MG/5 ML MDV 6 MG INJ (10:02)
[2020-04-23] MEDS: DEXAMETHASONE 10 MG/ML VIAL 20 MG INJ (10:02)
--- NOTE | 2020-04-23 10:05 | PC.NURSE ---
ASSISTING PT OFF TABLE AND TRANSPORTING TO POST PROC AREA IN STABLE CONDITION. PASSING RN CARE OF PT OFF TO [facility].
--- NOTE | 2020-04-23 10:13 | P.PCN_ITS ---
Procedures Date/Time Date of procedure: 04/23/20 Time of procedure: 10:13 General Procedure description: PREOP DIAGNOSIS 1. FORMAINAL STENOSIS WITH LE SYMPTOMS POST OP DIAGNOSIS 1. FORMAINAL STENOSIS WITH LE SYMPTOMS PROCEDURES 1. FLUOROSCOPICALLY GUIDED CONTRAST CONTROLLED TRANSFORAMINAL EPIDURAL STEROID INJECTION - LEFT L4/5 PHYSICIAN: Jerrod Spencer DO INDICATIONS: Camryn is referred by for treatment of Foraminal Stenosis with Left LE Symptoms FINDINGS Foraminal Nerve Root Compression secondary to disc disease and facet hypertrophy DESCRIPTION OF PROCEDURE: Following review of allergy and review of potential side effects and complications, including, but not necessarily limited to, infection, allergic reaction, local tissue breakdown, stroke, temporary or permanent nerve injury, paralysis, and possible , the patient indicated that the patient understood and agreed to proceed. An informed consent document was signed by the patient, witnessed by a nurse, and placed in the patient's chart. Additionally, other treatment options including medications, modalities, and physical therapy were reviewed with the patient. After review of previous anaesthesic history and IV conscious sedation the apple ent was deemed safe to proceed with todays procedure with IV conscious sedation as ASA class II designation. Safety time-out was performed to confirm patient ID, procedure to be performed and site of procedure. IV sedation was accomplished with a combination of 3mg of Versed administered by the RN after DO order, titrated to patient comfort during the course of the procedure while the patient remained responsive to all verbal commands In the prone position following sterile prep and drape of the lumbar region, the left L4/5 posterior neuroforamen was identified fluoroscopically. The skin was anesthetized via a 25-gauge 1.5-inch needle with 1% lidocaine solution. At this point, a 25-gauge 3.5-inch spinal needle was atraumatically introduced and advanced under fluoroscopic guidance through the posterior left L4/5 neuroforamen to approximately the anterior aspect of the canal. Depth was confirmed on lateral view. Following negative aspiration, injection of approximately 1.5 cc of Isovue 200 under live fluoroscopy in the AP view confirmed excellent flow along the nerve root, into the epidural space without vascular or intrathecal uptake observed Radiological data, including multiple fluoroscopic views of the lumbosacral spine, reveal a spinal needle at the left L4/5 posterior neuroforamen. Subsequent views show flow of contrast material flowing superiorly and inferiorly along the nerve root confirming epidural flow. Subsequently, a test dose of 1.5 cc of 1% lidocaine solution was administered and patient was observed for two minutes for signs or symptoms of complications, including abdominal pain, shortness of breath, bilateral upper or lower extremity weakness, nausea and vomiting, prior to steroid injection. At this point, a total of 3cc or 20mg of dexamethasone and 6mg of betamethasone was injected without incident. The procedure tolerated the procedure well without signs or symptoms of complications prior to transfer to the recovery area continued monitoring without incident. The patient was then transferred to the recovery area where they were observed for an appropriate time after the injection. The patient reported a VAS score of 7 prior to the procedure and a post- procedure VAS of 0. Total Fluoroscopy Time: 5seconds Total Conscious Sedation Time: 24min POST OP INSTRUCTIONS The patient was provided a Pain Log to continue to record their response to the target-specific procedure prior to follow-up visit with their referring physician. Additionally, specific post-injection care instructions and a contact number to our office were provided if concerns arise regarding possible complications associated with the procedure are suspected. Jerrod Spencer DO Complications: none
--- NOTE | 2020-04-23 10:44 | PC.NURSE ---
Pt returned to post procedural room via hr. A/Ox4 Stable transfer from to chair. Monitoring resumed from [facility]
== END 2020-04-23 10:43 | disposition home or self-care (01) ==
LOC: RAD 08:18
PROVIDERS: PCP Student in an Organized Health Care Education/Training Program; Referring Provider Physical Medicine & Rehabilitation; Visit Provider Physical Medicine & Rehabilitation
DX: M48.061 Spinal stenosis, lumbar region without neurogenic claudication (principal); M51.16 Intervertebral disc disorders with radiculopathy, lumbar region; M47.817 Spondylosis without myelopathy or radiculopathy, lumbosacral region
CPT/HCPCS: 64483; 99152; J0702; J1100; J2250; J3010

== ENCOUNTER → 2020-07-02 08:17 | Outpatient (CLI) | payer MEDICARE, OTHER, SELFPAY ==
[2020-07-02 08:47] LABS: Add Manual Diff / Slide Review NO; Basophils Absolute Auto 100 /uL (0-100); Basophils Percent Auto 1.3 % (0-2); Eosinophils Absolute Auto 300 /uL (0-450); Eosinophils Percent Auto 5.5 % (2-4); Hematocrit 36.6 % (36-46); Lymphocytes Absolute Auto 1000 /uL (1100-4500); Lymphocytes Percent Auto 21.1 % (25-40); Mean Corpuscular HGB Conc 32.9 % (30-36); Mean Corpuscular Hemoglobin 34.5 PG (26-34); Mean Corpuscular Volume 104.9 fL (80-100); Monocytes Absolute Auto 400 /uL (0-900); Monocytes Percent Auto 9.2 % (3-14); Neutrophils Absolute Auto 3000 /uL (1500-7000); Neutrophils Percent Auto 62.9 % (50-75); Platelet Count 163 X10^3/uL (150-400); Red Blood Cell Count 3.49 X10^6/uL (4.0-5.2); Red Cell Distribution Width 13.4 % (11.6-14.8); White Blood Cell Count 4.8 X10^3/uL (4.5-11.0)
[2020-07-02 09:19] LABS: BUN Creatinine Ratio 39.8 (6-22); Blood Urea Nitrogen 37 mg/dL (7-17); C-Reactive Protein Quant < 0.5 mg/dL (<1.0); Creatine Kinase 141 U/L (30-135); Estimated Glomerular Filt Rate 58.9 mL/min (>60); Magnesium 1.9 mg/dL (1.6-2.3)
[2020-07-02 09:36] LABS: Free T3, Triiodothyronine Free 3.98 pg/mL (2.77-5.27); Free T4, Direct Thyroxine 0.49 ng/dL (0.78-2.19)
[2020-07-02 09:50] LABS: Thyroid Stimulating Hormone 0.601 uIU/mL (0.47-4.68)
[2020-07-02 10:11] LABS: Vitamin B12 632 pg/mL (239-931)
== END ==
PROVIDERS: PCP Student in an Organized Health Care Education/Training Program; Referring Provider Student in an Organized Health Care Education/Training Program; Visit Provider Student in an Organized Health Care Education/Training Program
DX: E03.9 Hypothyroidism, unspecified (principal); I10 Essential (primary) hypertension; R25.2 Cramp and spasm; M79.10 Myalgia, unspecified site; R53.83 Other fatigue
CPT/HCPCS: 36415; 82550; 82565; 82607; 83735; 84439; 84443; 84481; 84520; 85025; 86140

== ENCOUNTER 2020-08-29 13:00 | Outpatient (RCR) | payer MEDICARE, OTHER, SELFPAY ==
--- NOTE | 2020-07-24 12:43 | PT.OIE ---
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) Asthma (Chronic) Bruises easily (Chronic) Chronic diarrhea (Chronic) DDD (degenerative disc disease) (Chronic) Dupuytren's contracture of right hand (Acute) Endometriosis (Chronic) Essential tremor (Chronic) Foraminal stenosis of lumbar region (Chronic) GERD (gastroesophageal reflux disease) (Chronic) Gout (Resolved) Greater trochanteric bursitis of left hip (Acute) Herniated nucleus pulposus, L4-5 (Acute) History of environmental allergies (Chronic) Hypertension (Chronic) IBS (irritable bowel syndrome) (Chronic) 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) Lumbosacral spondylosis with radiculopathy (Acute) Osteoarthritis (Chronic) Osteoporosis (Chronic) Otitis externa (Resolved) Right foot drop (Chronic) Seasonal allergic reaction (Chronic) Thyroid disease (Chronic) Past Surgical History (Last Reviewed 05/20/20 @ 16:51 by Jerrod Spencer DO) Dupuytrens contracture (Resolved ~2009) History of arthroplasty (Resolved ~2009) History of bilateral salpingo-oophorectomy (BSO) (~1975) History of esophagogastroduodenoscopy (EGD) (Resolved) History of hysterectomy (Resolved) History of lumbar laminectomy (Acute) History of removal of cyst (Resolved) History of spinal fusion (~1992) History of total right hip arthroplasty (Resolved) S/P BSO (bilateral salpingo-oophorectomy) (Resolved ~1981) Status post breast biopsy (~1993) Status post breast reduction (~2012) Status post colonoscopy (Resolved ~2012) Status post hysterectomy (~1975) Visit Care Team Role Provider Type Alex Townsend MD Attending Provider Physician Primary Care Provider Referring Provider Specialty: Internal Medicine Address: [address] [place] [address], [address], [facility] Email: [email or web address] Physical Therapy Initial Evaluation PT-OP-A Visit Information Start: 07/24/20 12:23 Freq: Status: Active Protocol: Document 07/24/20 09:45 DCW (Rec: 07/24/20 12:43 [facility] [id number]) Out-Patient Physical Therapy Visit Information Visit Information Visit Type Initial Evaluation Visit Start Time 09:45 Visit Stop Time 10:30 Total Visit Minutes 45 Visit Number 1 Number of PRECISION LENS TECHNICIAN Visits 0 Evaluation Information Evaluation Date 07/24/20 PT-OP-B Current Condition Start: 07/24/20 12:23 Freq: Status: Active Protocol: Document 07/24/20 09:45 DCW (Rec: 07/24/20 12:43 [facility] [id number]) Current Condition History of Current Condition Onset Date 5 month history Current Complaints Imbalance with fast movements History of Current Condition Pt is a 75 year old female complaining of a five month history of motion-induced imbalance. Pt reports of episodes are rather vague, no complaints of vertigo, just a sensation of leaning when up moving around, a fluttering in her ear, and feeling just not quite right. Pt does report a fall recently, after her new puppy ran into her, and she fell face first onto her driveway, resulting in stitches on her forehead. Her symptoms were present prior to this fall, but she did note a new symptoms afterward, which has only happened once. She was out golfing with her this weekend, and bouncing around in the golf cart made her feel nauseated and off balance, which had never happened before. Pt denies recent hearing changes, tinnitus, diplopia, dysarthria, discoordination, or decreased mentation/ consciousness. Pt reports symptoms are waxing/waning in nature. Pt denies hx of diabetes, arrhythmia, seizure, migraines, CVA, anxiety/panic disorders, depression, or excessive smoking or drinking. Pt does have a history of HTN and high cholesterol, however both have been controlled with medication. Treatment Goals Patient/Caregiver Goals Pt wants to get rid of the vertigo and balance issues. PT-OP-C Subjective Start: 07/24/20 12:23 Freq: Status: Active Protocol: Document 07/24/20 09:45 DCW (Rec: 07/24/20 12:43 [facility] [id number]) OP-PT Subjective Patient Comments Patient Comments It feels like I'm just kind of walking on a hill. I have a bad hip, so that might have something to do with it, but I 'm not sure. Patient Questionnaires Dizziness Handicap Inventory DHI Score 10% DHI Functional Impairment 1 to 19% Impaired (Score 1-19) PT-OP-O Vestibular Start: 07/24/20 12:23 Freq: Status: Active Protocol: Document 07/24/20 09:45 DCW (Rec: 07/24/20 12:43 [facility] [id number]) Vestibular Assessment Auditory Tests Lamb Test Within normal limits Rinne Test Negative Air Conduction Results Equal Visual Testing Smooth Pursuits Horizontal WNL Smooth Pursuits Vertical WNL Saccades Horizontal WNL Saccades Vertical WNL Gaze Evoked Nystagmus With Fixation Negative Gaze Evoked Nystagmus Without Fixation Negative Heave Test Positive Bilateral Thrust Head Positive Bilateral Mil String Test WNL Convergence Test 5 cm DVA (Line Degradation) 3 Head Shake Negative Spontaneous Nystagmus Negative Positional Testing Patito-Hallpike Negative Left,Negative Right Rolling Test Negative Left,Negative Right Vestibular Function Tests Fukuda Test 30? R rotation CTSIB Position 1 30 seconds CTSIB Position 2 30 seconds CTSIB Position 3 30 seconds CTSIB Position 4 30 seconds CTSIB Position 5 30 seconds CTSIB Position 6 30 seconds PT-OP-T Assessment and Plan Start: 07/24/20 12:23 Freq: Status: Active Protocol: Document 07/24/20 09:45 DCW (Rec: 07/24/20 12:43 [facility] [id number]) Physical Therapy Assessment Rehab Potential Rehabilitation Potential Good Evaluation Complexity Number of Personal Factors/Comorbidities 1-2 Number of Body Systems Impaired 1-2 Clinical Presentation at Evaluation Stable Impairments Impairments Balance,Functional Mobility, Vestibular Goals Two Impairment Pt experiences a tilting/dizzy sensation while walking Usp Goal (LTG) Pt to walk around [place] with no instances of feeling like she is tilting for one week to improve pt balance confidence LTG Duration 09/23/20 One Impairment Pt does not have an appropriate home exercise program Short Term Goal (STG) Pt to be independent and compliant with an appropriate HEP STG Duration 08/24/20 Assessment Summary Assessment Pt's vestibular evaluation was almost entirely negative. Pt' s only positive test were mildly bilaterally positive head impulse tests, which is rather common for her age group and is simply suggestive of age-related vestibular loss. Therapist unable to fully test static and dynamic balance and leg strength due to time constraints, but recommend further testing during pt's next visit. At this time, no indication for further vestibular therapy, but pt may benefit from balance training and strengthening, pending results of testing during her next visit. Physical Therapy Plan Frequency and Duration Frequency of Treatment 2x/Week Duration of Treatment 2 months Plan of Care Start Date 07/24/20 Plan of Care End Date 09/23/20 Therapeutic Interventions Therapeutic Interventions Balance Training,Coordination Training,Gait Training,Home Exercise Program,Neuromuscular Re-education,Therapeutic Activities,Therapeutic Exercises,Vestibular Rehabilitation Next Visit Focus/Plan Next Note Type Treatment Note Next Visit Plan Balance testing (White, DGI or FGA) LE strength testing
--- NOTE | 2020-07-24 12:43 | PT.OPPOC ---
Physical, Occupational & Speech Therapy At [facility] Current Diagnoses Other abnormalities of gait and mobility (07/24/20) History of falling (07/24/20) Visit Care Team Role Provider Type Alex Townsend MD Attending Provider Physician Primary Care Provider Referring Provider Specialty: Internal Medicine Address: [address] [place] [address], [facility] Email: [email or web address] Plan Of Care PT-OP-T Assessment and Plan Start: 07/24/20 12:23 Freq: Status: Active Protocol: Document 07/24/20 09:45 DCW (Rec: 07/24/20 12:43 DCW [id number]) Physical Therapy Assessment Rehab Potential Rehabilitation Potential Good Evaluation Complexity Number of Personal Factors/Comorbidities 1-2 Number of Body Systems Impaired 1-2 Clinical Presentation at Evaluation Stable Impairments Impairments Balance,Functional Mobility, Vestibular Goals Two Impairment Pt experiences a tilting/dizzy sensation while walking Long-Term Goal (LTG) Pt to walk around [place] with no instances of feeling like she is tilting for one week to improve pt balance confidence LTG Duration 09/23/20 One Impairment Pt does not have an appropriate home exercise program Short Term Goal (STG) Pt to be independent and compliant with an appropriate HEP STG Duration 08/24/20 Assessment Summary Assessment Pt's vestibular evaluation was almost entirely negative. Pt' s only positive test were mildly bilaterally positive head impulse tests, which is rather common for her age group and is simply suggestive of age-related vestibular loss. Therapist unable to fully test static and dynamic balance and leg strength due to time constraints, but recommend further testing during pt's next visit. At this time, no indication for further vestibular therapy, but pt may benefit from balance training and strengthening, pending results of testing during her next visit. Physical Therapy Plan Frequency and Duration Frequency of Treatment 2x/Week Duration of Treatment 2 months Plan of Care Start Date 07/24/20 Plan of Care End Date 09/23/20 Therapeutic Interventions Therapeutic Interventions Balance Training,Coordination Training,Gait Training,Home Exercise Program,Neuromuscular Re-education,Therapeutic Activities,Therapeutic Exercises,Vestibular Rehabilitation Next Visit Focus/Plan Next Note Type Treatment Note Next Visit Plan Balance testing (White, DGI or MARTÍN) LE strength testing Plan of Care Dates Plan of Care Start Date 07/24/20 Plan of Care End Date 09/23/20 Electronically Signed by: Sony Gutierrez, PT 07/24/20 [id number] Please Sign and Return: I have reviewed this Plan of Care and certify that the skilled therapy services above are required to meet the patient?s needs. Physician Signature Date Printed Name and Credentials Clinical Instructor Signature Printed Name and Credentials
--- NOTE | 2020-07-30 13:02 | PT.OTN ---
Current Diagnoses Other abnormalities of gait and mobility (07/30/20) History of falling (07/30/20) Physical Therapy Treatment Note PT-OP-A Visit Information Start: 07/24/20 12:23 Freq: Status: Active Protocol: Document 07/30/20 12:17 MB (Rec: 07/30/20 12:20 MB [id number]) Out-Patient Physical Therapy Visit Information Visit Information Visit Type Treatment Note Visit Note Treatment interrupted by fire drill Visit Start Time 12:17 Visit Stop Time 12:51 Total Visit Minutes 33 Visit Number 2 PT-OP-B Current Condition Start: 07/24/20 12:23 Freq: Status: Active Protocol: Document 07/24/20 09:45 DCW (Rec: 07/24/20 12:43 DCW [id number]) Current Condition History of Current Condition Onset Date 5 month history Current Complaints Imbalance with fast movements History of Current Condition Pt is a 75 year old female complaining of a five month history of motion-induced imbalance. Pt reports of episodes are rather vague, no complaints of vertigo, just a sensation of leaning when up moving around, a fluttering in her ear, and feeling just not quite right. Pt does report a fall recently, after her new puppy ran into her, and she fell face first onto her driveway, resulting in stitches on her forehead. Her symptoms were present prior to this fall, but she did note a new symptoms afterward, which has only happened once. She was out golfing with her this weekend, and bouncing around in the golf cart made her feel nauseated and off balance, which had never happened before. Pt denies recent hearing changes, tinnitus, diplopia, dysarthria, discoordination, or decreased mentation/ consciousness. Pt reports symptoms are waxing/waning in nature. Pt denies hx of diabetes, arrhythmia, seizure, migraines, CVA, anxiety/panic disorders, depression, or excessive smoking or drinking. Pt does have a history of HTN and high cholesterol, however both have been controlled with medication. Treatment Goals Patient/Caregiver Goals Pt wants to get rid of the vertigo and balance issues. PT-OP-C Subjective Start: 07/24/20 12:23 Freq: Status: Active Protocol: Document 07/30/20 12:17 MB (Rec: 07/30/20 12:22 MB [id number]) OP-PT Subjective Patient Comments Patient Comments Pt states that she wonders why she has the vertigo. She feels like she is walking at a tilt. She sees eye doctor in September. She does not have any trouble reading. She had two ear infections this year in her left ear the middle of January. She fell and hit her head and had stitches on Mother's Day. Patient Reported Progress Improving PT-OP-O Vestibular Start: 07/24/20 12:23 Freq: Status: Active Protocol: Document 07/24/20 09:45 DCW (Rec: 07/24/20 12:43 DCW [id number]) Vestibular Assessment Auditory Tests Lamb Test Within normal limits Rinne Test Negative Air Conduction Results Equal Visual Testing Smooth Pursuits Horizontal WNL Smooth Pursuits Vertical WNL Saccades Horizontal WNL Saccades Vertical WNL Gaze Evoked Nystagmus With Fixation Negative Gaze Evoked Nystagmus Without Fixation Negative Heave Test Positive Bilateral Thrust Head Positive Bilateral Mil String Test WNL Convergence Test 5 cm DVA (Line Degradation) 3 Head Shake Negative Spontaneous Nystagmus Negative Positional Testing [place]-Hallpike Negative Left,Negative Right Rolling Test Negative Left,Negative Right Vestibular Function Tests Fukuda Test 30? R rotation CTSIB Position 1 30 seconds CTSIB Position 2 30 seconds CTSIB Position 3 30 seconds CTSIB Position 4 30 seconds CTSIB Position 5 30 seconds CTSIB Position 6 30 seconds PT-OP-Q Treatments Start: 07/24/20 12:23 Freq: Status: Active Protocol: Document 07/30/20 12:17 MB (Rec: 07/30/20 12:58 MB [id number]) Neuro Re-Education Treatment Movement Re-Education Movement Re-education Activities FGA , indicating increased risk of falls Self-Care/Home Management Treatment Education Other Education Cause and symptoms associated with PCS, proper sleeping position, proper hydration, benefits of PT for balance, cervical, VOR, PCS symptoms PT-OP-T Assessment and Plan Start: 07/24/20 12:23 Freq: Status: Active Protocol: Document 07/30/20 12:17 MB (Rec: 07/30/20 12:58 MB [id number]) Physical Therapy Assessment Rehab Potential Rehabilitation Potential Good Evaluation Complexity Number of Personal Factors/Comorbidities 1-2 Number of Body Systems Impaired 1-2 Clinical Presentation at Evaluation Stable Impairments Impairments Balance,Functional Mobility, Vestibular Goals Two Impairment Pt experiences a tilting/dizzy sensation while walking Correction Goal (LTG) Pt to walk around downtown with no instances of feeling like she is tilting for one week to improve pt balance confidence LTG Duration 09/23/20 One Impairment Pt does not have an appropriate home exercise program Short Term Goal (STG) Pt to be independent and compliant with an appropriate HEP STG Duration 08/24/20 Assessment Summary Assessment Pt with ongoing complaints of vertigo and states that walking in the [facility] [place] can be problematic and riding in the golf cart. She reports leg cramping at night and was told by Dr. Townsend to take vitamin E. Orthostatic assessment in [facility] with BP and HR: supine 160/88, 85; standing 149/91, 96; standing 30 sec 160/82, 83. Pt denies symptoms. Pt has post- concussive presentation s/p striking head requiring stitches and sxs of dizziness and headache. Pt has history of many orthopedic issues and states she sleeps on her stomach. She demonstrates very limited cervical rotation. Con't PT for balance, VOR, ongoing assessment. Pt does present with forward pitched posture that could possibly be related to a visual change after concussion or a VOR deficit, con't to address. Physical Therapy Plan Frequency and Duration Frequency of Treatment 2x/Week Duration of Treatment 2 months Plan of Care Start Date 07/24/20 Plan of Care End Date 09/23/20 Therapeutic Interventions Therapeutic Interventions Balance Training,Coordination Training,Gait Training,Home Exercise Program,Neuromuscular Re-education,Therapeutic Activities,Therapeutic Exercises,Vestibular Rehabilitation Other Referrals/Consults Referrals/Consults Recommended ENT consult regarding ongoing symptoms, trouble in her left ear Next Visit Focus/Plan Next Note Type Treatment Note Next Visit Plan Ongoing VOR assessment, consider assessing leg strength though note pt has history of right hip sx, 2 injections left hip and also spinal injections, ongoing education
--- NOTE | 2020-08-08 09:38 | PT.OTN ---
Current Diagnoses Other abnormalities of gait and mobility (08/08/20) History of falling (08/08/20) Physical Therapy Treatment Note PT-OP-A Visit Information Start: 07/24/20 12:23 Freq: Status: Active Protocol: Document 08/08/20 09:00 MB (Rec: 08/08/20 09:38 MB [id number]) Out-Patient Physical Therapy Visit Information Visit Information Visit Type Treatment Note Visit Start Time 09:00 Visit Stop Time 09:38 Total Visit Minutes 38 Visit Number 3 PT-OP-B Current Condition Start: 07/24/20 12:23 Freq: Status: Active Protocol: Document 07/24/20 09:45 DCW (Rec: 07/24/20 12:43 DCW [id number]) Current Condition History of Current Condition Onset Date 5 month history Current Complaints Imbalance with fast movements History of Current Condition Pt is a 75 year old female complaining of a five month history of motion-induced imbalance. Pt reports of episodes are rather vague, no complaints of vertigo, just a sensation of leaning when up moving around, a fluttering in her ear, and feeling just not quite right. Pt does report a fall recently, after her new puppy ran into her, and she fell face first onto her driveway, resulting in stitches on her forehead. Her symptoms were present prior to this fall, but she did note a new symptoms afterward, which has only happened once. She was out golfing with her this weekend, and bouncing around in the golf cart made her feel nauseated and off balance, which had never happened before. Pt denies recent hearing changes, tinnitus, diplopia, dysarthria, discoordination, or decreased mentation/ consciousness. Pt reports symptoms are waxing/waning in nature. Pt denies hx of diabetes, arrhythmia, seizure, migraines, CVA, anxiety/panic disorders, depression, or excessive smoking or drinking. Pt does have a history of HTN and high cholesterol, however both have been controlled with medication. Treatment Goals Patient/Caregiver Goals Pt wants to get rid of the vertigo and balance issues. PT-OP-C Subjective Start: 07/24/20 12:23 Freq: Status: Active Protocol: Document 08/08/20 09:00 MB (Rec: 08/08/20 09:38 MB [id number]) OP-PT Subjective Patient Comments Patient Comments Pt states that she heard from Dr. Townsend's office and got referral for ENT. Appointment isn't until August and she is on a wait list. She started taking Bonine. She always had motion sickness as a kid and had to look out a window when riding in a car. PT-OP-O Vestibular Start: 07/24/20 12:23 Freq: Status: Active Protocol: Document 07/24/20 09:45 DCW (Rec: 07/24/20 12:43 DCW [id number]) Vestibular Assessment Auditory Tests Lamb Test Within normal limits Rinne Test Negative Air Conduction Results Equal Visual Testing Smooth Pursuits Horizontal WNL Smooth Pursuits Vertical WNL Saccades Horizontal WNL Saccades Vertical WNL Gaze Evoked Nystagmus With Fixation Negative Gaze Evoked Nystagmus Without Fixation Negative Heave Test Positive Bilateral Thrust Head Positive Bilateral Mil String Test WNL Convergence Test 5 cm DVA (Line Degradation) 3 Head Shake Negative Spontaneous Nystagmus Negative Positional Testing [place]-Hallpike Negative Left,Negative Right Rolling Test Negative Left,Negative Right Vestibular Function Tests Fukuda Test 30? R rotation CTSIB Position 1 30 seconds CTSIB Position 2 30 seconds CTSIB Position 3 30 seconds CTSIB Position 4 30 seconds CTSIB Position 5 30 seconds CTSIB Position 6 30 seconds PT-OP-Q Treatments Start: 07/24/20 12:23 Freq: Status: Active Protocol: Document 08/08/20 09:00 MB (Rec: 08/08/20 09:38 MB [id number]) Neuro Re-Education Treatment Vestibular Rehabilitation DVA eye chart exercise Comments 7 line difference in eye chart reading with horizontal and vertical head turns E second line from the bottom for HEP PT-OP-T Assessment and Plan Start: 07/24/20 12:23 Freq: Status: Active Protocol: Document 08/08/20 09:00 MB (Rec: 08/08/20 09:38 MB [id number]) Physical Therapy Assessment Rehab Potential Rehabilitation Potential Good Evaluation Complexity Number of Personal Factors/Comorbidities 1-2 Number of Body Systems Impaired 1-2 Clinical Presentation at Evaluation Stable Impairments Impairments Balance,Functional Mobility, Vestibular Goals Two Impairment Pt experiences a tilting/dizzy sensation while walking [facility] Goal (LTG) Pt to walk around [place] with no instances of feeling like she is tilting for one week to improve pt balance confidence LTG Duration 09/23/20 One Impairment Pt does not have an appropriate home exercise program Short Term Goal (STG) Pt to be independent and compliant with an appropriate HEP STG Duration 08/24/20 Assessment Summary Assessment Pt presents with VOR dysfunction and initiated DVA eye chart exercises today to be able to perform at home. Full treatment with this exercise today to help performance and carryover. Physical Therapy Plan Frequency and Duration Frequency of Treatment 2x/Week Duration of Treatment 2 months Plan of Care Start Date 07/24/20 Plan of Care End Date 09/23/20 Therapeutic Interventions Therapeutic Interventions Balance Training,Coordination Training,Gait Training,Home Exercise Program,Neuromuscular Re-education,Therapeutic Activities,Therapeutic Exercises,Vestibular Rehabilitation Next Visit Focus/Plan Next Note Type Treatment Note Next Visit Plan Next treatment, consider corner balance exercises and cervical ROM exercises. Progress balance, postural and VOR exercises
--- NOTE | 2020-08-12 09:00 | PT.OTN ---
Current Diagnoses Other abnormalities of gait and mobility (08/12/20) History of falling (08/12/20) Physical Therapy Treatment Note PT-OP-A Visit Information Start: 07/24/20 12:23 Freq: Status: Active Protocol: Document 08/12/20 08:16 MB (Rec: 08/12/20 09:00 MB [id number]) Out-Patient Physical Therapy Visit Information Visit Information Visit Type Treatment Note Visit Start Time 08:16 Visit Stop Time 09:00 Total Visit Minutes 44 Visit Number 4 PT-OP-B Current Condition Start: 07/24/20 12:23 Freq: Status: Active Protocol: Document 07/24/20 09:45 DCW (Rec: 07/24/20 12:43 DCW [id number]) Current Condition History of Current Condition Onset Date 5 month history Current Complaints Imbalance with fast movements History of Current Condition Pt is a 75 year old female complaining of a five month history of motion-induced imbalance. Pt reports of episodes are rather vague, no complaints of vertigo, just a sensation of leaning when up moving around, a fluttering in her ear, and feeling just not quite right. Pt does report a fall recently, after her new puppy ran into her, and she fell face first onto her driveway, resulting in stitches on her forehead. Her symptoms were present prior to this fall, but she did note a new symptoms afterward, which has only happened once. She was out golfing with her this weekend, and bouncing around in the golf cart made her feel nauseated and off balance, which had never happened before. Pt denies recent hearing changes, tinnitus, diplopia, dysarthria, discoordination, or decreased mentation/ consciousness. Pt reports symptoms are waxing/waning in nature. Pt denies hx of diabetes, arrhythmia, seizure, migraines, CVA, anxiety/panic disorders, depression, or excessive smoking or drinking. Pt does have a history of HTN and high cholesterol, however both have been controlled with medication. Treatment Goals Patient/Caregiver Goals Pt wants to get rid of the vertigo and balance issues. PT-OP-C Subjective Start: 07/24/20 12:23 Freq: Status: Active Protocol: Document 08/12/20 08:16 MB (Rec: 08/12/20 09:00 MB [id number]) OP-PT Subjective Patient Comments Patient Comments Moving my head up and down is really hard. I realized I move my shoulders a lot. PT-OP-O Vestibular Start: 07/24/20 12:23 Freq: Status: Active Protocol: Document 07/24/20 09:45 DCW (Rec: 07/24/20 12:43 DCW [id number]) Vestibular Assessment Auditory Tests Lamb Test Within normal limits Rinne Test Negative Air Conduction Results Equal Visual Testing Smooth Pursuits Horizontal WNL Smooth Pursuits Vertical WNL Saccades Horizontal WNL Saccades Vertical WNL Gaze Evoked Nystagmus With Fixation Negative Gaze Evoked Nystagmus Without Fixation Negative Heave Test Positive Bilateral Thrust Head Positive Bilateral Mil String Test WNL Convergence Test 5 cm DVA (Line Degradation) 3 Head Shake Negative Spontaneous Nystagmus Negative Positional Testing [place]-Hallpike Negative Left,Negative Right Rolling Test Negative Left,Negative Right Vestibular Function Tests Fukuda Test 30? R rotation CTSIB Position 1 30 seconds CTSIB Position 2 30 seconds CTSIB Position 3 30 seconds CTSIB Position 4 30 seconds CTSIB Position 5 30 seconds CTSIB Position 6 30 seconds PT-OP-Q Treatments Start: 07/24/20 12:23 Freq: Status: Active Protocol: Document 08/12/20 08:16 MB (Rec: 08/12/20 09:00 MB [id number]) Therapeutic Exercises Standing Exercises Scapular retraction against wall Comments 10 reps against wall, cues not to elevate shoulders MWM shoulder ER and IR infraspinatus Side bilateral Equipment Used Racquet ball Reps/Minutes 2 minutes each side after ed Comments Hold trigger point with ball MWM cervical rotation intrascapular area Side bilateral Equipment Used Racquet ball Reps/Minutes 3 minutes each side after teaching Comments Hold trigger point and cervical rotation and trigger point pressure Neuro Re-Education Treatment Vestibular Rehabilitation DVA eye chart exercise Comments Metronome today 111 BPM horizontal and vertical head turns up to 2 minutes and increased spped to 116 BPM PT-OP-T Assessment and Plan Start: 07/24/20 12:23 Freq: Status: Active Protocol: Document 08/12/20 08:16 MB (Rec: 08/12/20 09:00 MB [id number]) Physical Therapy Assessment Rehab Potential Rehabilitation Potential Good Evaluation Complexity Number of Personal Factors/Comorbidities 1-2 Number of Body Systems Impaired 1-2 Clinical Presentation at Evaluation Stable Impairments Impairments Balance,Functional Mobility, Vestibular Goals Two Impairment Pt experiences a tilting/dizzy sensation while walking Assisted Goal (LTG) Pt to walk around downtown with no instances of feeling like she is tilting for one week to improve pt balance confidence LTG Duration 09/23/20 One Impairment Pt does not have an appropriate home exercise program Short Term Goal (STG) Pt to be independent and compliant with an appropriate HEP STG Duration 08/24/20 Assessment Summary Assessment Progressed use of metronome with VOR exericses today, set 111 BPM. Progressed cervical ROM this date with trigger point mobility. Physical Therapy Plan Frequency and Duration Frequency of Treatment 2x/Week Duration of Treatment 2 months Plan of Care Start Date 07/24/20 Plan of Care End Date 09/23/20 Therapeutic Interventions Therapeutic Interventions Balance Training,Coordination Training,Gait Training,Home Exercise Program,Neuromuscular Re-education,Therapeutic Activities,Therapeutic Exercises,Vestibular Rehabilitation Next Visit Focus/Plan Next Note Type Treatment Note Next Visit Plan Next treatment, consider corner balance exercises and upper traps MWM. Consider pect stretch with MWM. Progress postural exercises including thoracic mobility, scapular and shoulder strengthening.
--- NOTE | 2020-08-20 11:18 | PT.OTN ---
Current Diagnoses Other abnormalities of gait and mobility (08/20/20) History of falling (08/20/20) Physical Therapy Treatment Note PT-OP-A Visit Information Start: 07/24/20 12:23 Freq: Status: Active Protocol: Document 08/20/20 10:33 DCW (Rec: 08/20/20 11:18 DCW [id number]) Out-Patient Physical Therapy Visit Information Visit Information Visit Type Treatment Note Visit Start Time 10:33 Visit Stop Time 11:15 Total Visit Minutes 42 Visit Number 5 Number of MOLDER BENCH Visits 0 Evaluation Information Evaluation Date 07/24/20 PT-OP-B Current Condition Start: 07/24/20 12:23 Freq: Status: Active Protocol: Document 07/24/20 09:45 DCW (Rec: 07/24/20 12:43 DCW [id number]) Current Condition History of Current Condition Onset Date 5 month history Current Complaints Imbalance with fast movements History of Current Condition Pt is a 75 year old female complaining of a five month history of motion-induced imbalance. Pt reports of episodes are rather vague, no complaints of vertigo, just a sensation of leaning when up moving around, a fluttering in her ear, and feeling just not quite right. Pt does report a fall recently, after her new puppy ran into her, and she fell face first onto her driveway, resulting in stitches on her forehead. Her symptoms were present prior to this fall, but she did note a new symptoms afterward, which has only happened once. She was out golfing with her this weekend, and bouncing around in the golf cart made her feel nauseated and off balance, which had never happened before. Pt denies recent hearing changes, tinnitus, diplopia, dysarthria, discoordination, or decreased mentation/ consciousness. Pt reports symptoms are waxing/waning in nature. Pt denies hx of diabetes, arrhythmia, seizure, migraines, CVA, anxiety/panic disorders, depression, or excessive smoking or drinking. Pt does have a history of HTN and high cholesterol, however both have been controlled with medication. Treatment Goals Patient/Caregiver Goals Pt wants to get rid of the vertigo and balance issues. PT-OP-C Subjective Start: 07/24/20 12:23 Freq: Status: Active Protocol: Document 08/20/20 10:33 DCW (Rec: 08/20/20 11:18 DCW [id number]) OP-PT Subjective Patient Comments Patient Comments I think I've been doing better. PT-OP-O Vestibular Start: 07/24/20 12:23 Freq: Status: Active Protocol: Document 07/24/20 09:45 DCW (Rec: 07/24/20 12:43 DCW [id number]) Vestibular Assessment Auditory Tests Lamb Test Within normal limits Rinne Test Negative Air Conduction Results Equal Visual Testing Smooth Pursuits Horizontal WNL Smooth Pursuits Vertical WNL Saccades Horizontal WNL Saccades Vertical WNL Gaze Evoked Nystagmus With Fixation Negative Gaze Evoked Nystagmus Without Fixation Negative Heave Test Positive Bilateral Thrust Head Positive Bilateral Mil String Test WNL Convergence Test 5 cm DVA (Line Degradation) 3 Head Shake Negative Spontaneous Nystagmus Negative Positional Testing [place]-Hallpike Negative Left,Negative Right Rolling Test Negative Left,Negative Right Vestibular Function Tests Fukuda Test 30? R rotation CTSIB Position 1 30 seconds CTSIB Position 2 30 seconds CTSIB Position 3 30 seconds CTSIB Position 4 30 seconds CTSIB Position 5 30 seconds CTSIB Position 6 30 seconds PT-OP-Q Treatments Start: 07/24/20 12:23 Freq: Status: Active Protocol: Document 08/20/20 10:33 DCW (Rec: 08/20/20 11:18 DCW [id number]) Gym Equipment Shuttle Balance Red Details Wide AYAD (EO/EC), Staggered Therapeutic Exercises Sidelying Exercises 1 Sidelying Exercise Name Open book/Reach and roll Side bilateral Standing Exercises Scapular retraction against wall Comments 10 reps against wall, cues not to elevate shoulders 1 Standing Exercise Name Wall posture Neuro Re-Education Treatment Balance Activities 3 Details Vega chart reading bouncing on trampoline 2 Details NBOS /c EC 1 Details Tandem Stance Surface in corner Comments X1 viewing horizontal, vertical PT-OP-T Assessment and Plan Start: 07/24/20 12:23 Freq: Status: Active Protocol: Document 08/20/20 10:33 DCW (Rec: 08/20/20 11:18 DCW [id number]) Physical Therapy Assessment Impairments Impairments Balance,Functional Mobility, Vestibular Goals Two Impairment Pt experiences a tilting/dizzy sensation while walking Jail Goal (LTG) Pt to walk around [place] with no instances of feeling like she is tilting for one week to improve pt balance confidence LTG Duration 09/23/20 One Impairment Pt does not have an appropriate home exercise program Short Term Goal (STG) Pt to be independent and compliant with an appropriate HEP STG Duration 08/24/20 Assessment Summary Assessment Pt tolerated therapy very well today, no problems with balance challenges, adjusted to Shuttle Balance quickly. No difficulty reading Vega chart while bouncing. Physical Therapy Plan Frequency and Duration Frequency of Treatment 2x/Week Duration of Treatment 2 months Plan of Care Start Date 07/24/20 Plan of Care End Date 09/23/20 Therapeutic Interventions Therapeutic Interventions Balance Training,Coordination Training,Gait Training,Home Exercise Program,Neuromuscular Re-education,Therapeutic Activities,Therapeutic Exercises,Vestibular Rehabilitation Next Visit Focus/Plan Next Note Type Treatment Note Next Visit Plan Next treatment, consider upper traps MWM. Consider pect stretch with MWM. Progress postural exercises including thoracic mobility, scapular and shoulder strengthening.
--- NOTE | 2020-08-22 11:18 | PT.OTN ---
Current Diagnoses Other abnormalities of gait and mobility (08/22/20) History of falling (08/22/20) Physical Therapy Treatment Note PT-OP-A Visit Information Start: 07/24/20 12:23 Freq: Status: Active Protocol: Document 08/22/20 10:30 DCW (Rec: 08/22/20 11:18 DCW [id number]) Out-Patient Physical Therapy Visit Information Visit Information Visit Type Treatment Note Visit Start Time 10:30 Visit Stop Time 11:15 Total Visit Minutes 45 Visit Number 6 Number of PATCHER Visits 0 Evaluation Information Evaluation Date 07/24/20 PT-OP-B Current Condition Start: 07/24/20 12:23 Freq: Status: Active Protocol: Document 07/24/20 09:45 DCW (Rec: 07/24/20 12:43 DCW [id number]) Current Condition History of Current Condition Onset Date 5 month history Current Complaints Imbalance with fast movements History of Current Condition Pt is a 75 year old female complaining of a five month history of motion-induced imbalance. Pt reports of episodes are rather vague, no complaints of vertigo, just a sensation of leaning when up moving around, a fluttering in her ear, and feeling just not quite right. Pt does report a fall recently, after her new puppy ran into her, and she fell face first onto her driveway, resulting in stitches on her forehead. Her symptoms were present prior to this fall, but she did note a new symptoms afterward, which has only happened once. She was out golfing with her this weekend, and bouncing around in the golf cart made her feel nauseated and off balance, which had never happened before. Pt denies recent hearing changes, tinnitus, diplopia, dysarthria, discoordination, or decreased mentation/ consciousness. Pt reports symptoms are waxing/waning in nature. Pt denies hx of diabetes, arrhythmia, seizure, migraines, CVA, anxiety/panic disorders, depression, or excessive smoking or drinking. Pt does have a history of HTN and high cholesterol, however both have been controlled with medication. Treatment Goals Patient/Caregiver Goals Pt wants to get rid of the vertigo and balance issues. PT-OP-C Subjective Start: 07/24/20 12:23 Freq: Status: Active Protocol: Document 08/22/20 10:30 DCW (Rec: 08/22/20 11:18 DCW [id number]) OP-PT Subjective Patient Comments Patient Comments Pt reports she is still feeling off, like I'm not awake or something. PT-OP-O Vestibular Start: 07/24/20 12:23 Freq: Status: Active Protocol: Document 07/24/20 09:45 DCW (Rec: 07/24/20 12:43 DCW [id number]) Vestibular Assessment Auditory Tests Lamb Test Within normal limits Rinne Test Negative Air Conduction Results Equal Visual Testing Smooth Pursuits Horizontal WNL Smooth Pursuits Vertical WNL Saccades Horizontal WNL Saccades Vertical WNL Gaze Evoked Nystagmus With Fixation Negative Gaze Evoked Nystagmus Without Fixation Negative Heave Test Positive Bilateral Thrust Head Positive Bilateral Mil String Test WNL Convergence Test 5 cm DVA (Line Degradation) 3 Head Shake Negative Spontaneous Nystagmus Negative Positional Testing T[place]-Hallpike Negative Left,Negative Right Rolling Test Negative Left,Negative Right Vestibular Function Tests Fukuda Test 30? R rotation CTSIB Position 1 30 seconds CTSIB Position 2 30 seconds CTSIB Position 3 30 seconds CTSIB Position 4 30 seconds CTSIB Position 5 30 seconds CTSIB Position 6 30 seconds PT-OP-Q Treatments Start: 07/24/20 12:23 Freq: Status: Active Protocol: Document 08/22/20 10:30 DCW (Rec: 08/22/20 11:18 DCW [id number]) Gym Equipment Shuttle Balance Red Details Wide AYAD (EO/EC), Staggered, Lateral weight shift Neuro Re-Education Treatment Balance Activities 7 Details Amb /c Head Turns 6 Details Retro Amb 5 Details EC Ambulation 4 Details [place]/Head turn in tandem 1 Details Tandem Stance Surface in corner Comments X1 viewing horizontal, vertical PT-OP-T Assessment and Plan Start: 07/24/20 12:23 Freq: Status: Active Protocol: Document 08/22/20 10:30 DCW (Rec: 08/22/20 11:18 DCW [id number]) Physical Therapy Assessment Impairments Impairments Balance,Functional Mobility, Vestibular Goals Two Impairment Pt experiences a tilting/dizzy sensation while walking Photo Booth Operator Goal (LTG) Pt to walk around [place] with no instances of feeling like she is tilting for one week to improve pt balance confidence LTG Duration 09/23/20 One Impairment Pt does not have an appropriate home exercise program Short Term Goal (STG) Pt to be independent and compliant with an appropriate HEP STG Duration 08/24/20 Assessment Summary Assessment Pt's subjective complaints are improving, still looking very well objectively, no concerns regarding safety or balance during home exercises. Physical Therapy Plan Frequency and Duration Frequency of Treatment 2x/Week Duration of Treatment 2 months Plan of Care Start Date 07/24/20 Plan of Care End Date 09/23/20 Therapeutic Interventions Therapeutic Interventions Balance Training,Coordination Training,Gait Training,Home Exercise Program,Neuromuscular Re-education,Therapeutic Activities,Therapeutic Exercises,Vestibular Rehabilitation Next Visit Focus/Plan Next Note Type Treatment Note Next Visit Plan Next treatment, consider upper traps MWM. Consider pect stretch with MWM. Progress postural exercises including thoracic mobility, scapular and shoulder strengthening.
--- NOTE | 2020-08-29 13:34 | PT.OTN ---
Current Diagnoses Other abnormalities of gait and mobility (08/29/20) History of falling (08/29/20) Physical Therapy Treatment Note PT-OP-A Visit Information Start: 07/24/20 12:23 Freq: Status: Active Protocol: Document 08/29/20 13:02 MB (Rec: 08/29/20 13:34 MB [id number]) Out-Patient Physical Therapy Visit Information Visit Information Visit Type Discharge Summary Visit Start Time 13:02 Visit Stop Time 13:26 Total Visit Minutes 24 Visit Number 7 PT-OP-B Current Condition Start: 07/24/20 12:23 Freq: Status: Active Protocol: Document 07/24/20 09:45 DCW (Rec: 07/24/20 12:43 DCW [id number]) Current Condition History of Current Condition Onset Date 5 month history Current Complaints Imbalance with fast movements History of Current Condition Pt is a 75 year old female complaining of a five month history of motion-induced imbalance. Pt reports of episodes are rather vague, no complaints of vertigo, just a sensation of leaning when up moving around, a fluttering in her ear, and feeling just not quite right. Pt does report a fall recently, after her new puppy ran into her, and she fell face first onto her driveway, resulting in stitches on her forehead. Her symptoms were present prior to this fall, but she did note a new symptoms afterward, which has only happened once. She was out golfing with her this weekend, and bouncing around in the golf cart made her feel nauseated and off balance, which had never happened before. Pt denies recent hearing changes, tinnitus, diplopia, dysarthria, discoordination, or decreased mentation/ consciousness. Pt reports symptoms are waxing/waning in nature. Pt denies hx of diabetes, arrhythmia, seizure, migraines, CVA, anxiety/panic disorders, depression, or excessive smoking or drinking. Pt does have a history of HTN and high cholesterol, however both have been controlled with medication. Treatment Goals Patient/Caregiver Goals Pt wants to get rid of the vertigo and balance issues. PT-OP-C Subjective Start: 07/24/20 12:23 Freq: Status: Active Protocol: Document 08/29/20 13:02 MB (Rec: 08/29/20 13:34 MB [id number]) OP-PT Subjective Patient Comments Patient Comments I got a lot out of PT. I think the eye exercises and balance exercises are helpful. PT-OP-O Vestibular Start: 07/24/20 12:23 Freq: Status: Active Protocol: Document 07/24/20 09:45 DCW (Rec: 07/24/20 12:43 DCW [id number]) Vestibular Assessment Auditory Tests Lamb Test Within normal limits Rinne Test Negative Air Conduction Results Equal Visual Testing Smooth Pursuits Horizontal WNL Smooth Pursuits Vertical WNL Saccades Horizontal WNL Saccades Vertical WNL Gaze Evoked Nystagmus With Fixation Negative Gaze Evoked Nystagmus Without Fixation Negative Heave Test Positive Bilateral Thrust Head Positive Bilateral Mil String Test WNL Convergence Test 5 cm DVA (Line Degradation) 3 Head Shake Negative Spontaneous Nystagmus Negative Positional Testing [place]-Hallpike Negative Left,Negative Right Rolling Test Negative Left,Negative Right Vestibular Function Tests Fukuda Test 30? R rotation CTSIB Position 1 30 seconds CTSIB Position 2 30 seconds CTSIB Position 3 30 seconds CTSIB Position 4 30 seconds CTSIB Position 5 30 seconds CTSIB Position 6 30 seconds PT-OP-Q Treatments Start: 07/24/20 12:23 Freq: Status: Active Protocol: Document 08/29/20 13:02 MB (Rec: 08/29/20 13:34 MB [id number]) Therapeutic Exercises Sitting Exercises Use of back assurance manager for upper traps/levator STM and MWM Comments Left side today, trigger point pressure and active rotation and SB Other Exercises Reviewed all HEP exercises today Comments Tandem gait, DVA eye chart with progressive standing challenges Neuro Re-Education Treatment Balance Activities FGA Comments Score of 28/30, normal PT-OP-T Assessment and Plan Start: 07/24/20 12:23 Freq: Status: Active Protocol: Document 08/29/20 13:02 MB (Rec: 08/29/20 13:34 MB [id number]) Physical Therapy Assessment Goals Two Impairment Pt experiences a tilting/dizzy sensation while walking Milk Deliverer Goal (LTG) Pt to walk around downtown with no instances of feeling like she is tilting for one week to improve pt balance confidence 08/29/2020: Pt reports no trouble walking downtown. LTG Duration 09/23/20 One Impairment Pt does not have an appropriate home exercise program Short Term Goal (STG) Pt to be independent and compliant with an appropriate HEP 08/29/2020: Pt is performing VOR, self-massage and balance exercises STG Duration 08/24/20 Assessment Summary Assessment Pt has met symptom report and HEP goals since starting PT. FGA today is normal. Ed pt in benefits of back assurance manager for upper traps and levator. Pt is ready to d/c as she has maximized PT goals. She will follow-up with ENT about sensation of fluttering in her left ear. Physical Therapy Plan Discharge Physical Therapy Discharge Reasons Goals Met
== END 2020-08-30 08:45 ==
LOC: PHYS 13:00
PROVIDERS: PCP Student in an Organized Health Care Education/Training Program; Referring Provider Student in an Organized Health Care Education/Training Program; Visit Provider Student in an Organized Health Care Education/Training Program
DX: R26.89 Other abnormalities of gait and mobility (principal); Z91.81 History of falling
CPT/HCPCS: 97110; 97112; 97161; 97535

== ENCOUNTER → 2020-12-27 07:43 | Outpatient (CLI) | payer MEDICARE, OTHER, SELFPAY ==
[2020-12-27] MEDS: COVID-19 VACC #1, MRNA(MOD) 100 MCG/0.5 ML VIAL IM (07:50)
== END ==
PROVIDERS: PCP Student in an Organized Health Care Education/Training Program; Visit Provider Internal Medicine
DX: Z23 Encounter for immunization (principal)
CPT/HCPCS: 0011A; 91301

== ENCOUNTER → 2021-01-24 07:44 | Outpatient (CLI) | payer MEDICARE, OTHER, SELFPAY ==
[2021-01-24] MEDS: COVID-19 VACC #2, MRNA(MOD) 100 MCG/0.5 ML VIAL IM (07:47)
== END ==
PROVIDERS: PCP Student in an Organized Health Care Education/Training Program; Visit Provider Internal Medicine
DX: Z23 Encounter for immunization (principal)
CPT/HCPCS: 0012A; 91301

== ENCOUNTER → 2021-03-10 11:30 | Outpatient (CLI) | payer MEDICARE, OTHER, SELFPAY ==
--- NOTE | 2021-03-10 | DI.MG.S_ITS ---
BILATERAL DIGITAL SCREENING MAMMOGRAM 3D/2D WITH CAD: 03/10/2021 CLINICAL: Personal history of LCIS. Routine screening. Comparison is made to exams dated: 04/11/2019 mammogram, 04/09/2018 mammogram, and 03/29/2017 mammogram - [facility]. The tissue of both breasts is heterogeneously dense. This may lower the sensitivity of mammography. Current study was also evaluated with a Computer Aided Detection (CAD) system. There are benign calcifications in both breasts. There also are benign post operative findings in the right breast. Additionally, there are benign post operative findings and biopsy clip in the left breast. No significant masses, calcifications, or other findings are seen in either breast. There has been no significant interval change. IMPRESSION: BENIGN There is no mammographic evidence of malignancy. A 1 year screening mammogram is recommended. This exam was interpreted at Station ID: [id number]. NOTE: For mammograms, a report in lay terms will be sent to the patient. Approximately 15% of breast malignancies will not be visualized mammographically. In the management of a palpable breast mass, a negative mammogram must not discourage biopsy of a clinically suspicious lesion. Electronically Signed By: Helena waterman/haroon:03/10/2021 16:35:31 letter sent: Normal Exam ACR BI-RADS Category 2: Benign Finding(s) [id number]
== END ==
PROVIDERS: PCP Student in an Organized Health Care Education/Training Program; Referring Provider Student in an Organized Health Care Education/Training Program; Visit Provider Student in an Organized Health Care Education/Training Program
DX: Z12.31 Encounter for screening mammogram for malignant neoplasm of breast (principal); Z86.000 Personal history of in-situ neoplasm of breast
CPT/HCPCS: 77063; 77067

== ENCOUNTER → 2021-04-18 13:32 | Outpatient (CLI) | payer MEDICARE, OTHER, SELFPAY ==
--- NOTE | 2021-04-18 13:33 | DI.RAD.S_ITS ---
PROCEDURE: XR DEXA AXIAL SKELETON INDICATIONS: osteoporosis screening COMPARISON: [facility], CR, XR DEXA AXIAL SKELETON, 02/03/2019, 13:42. FINDINGS: This blank DEXA report has been sent in error by the PACS system. The correct and complete report will be forthcoming in 1-2 days. Thank you for your patience and understanding. Dictated by: Ella Luz MD, PhD on 04/18/2021 at 17:10 Approved by: Ella Luz MD, PhD on 04/18/2021 at 17:10
== END ==
PROVIDERS: PCP Student in an Organized Health Care Education/Training Program; Referring Provider Student in an Organized Health Care Education/Training Program; Visit Provider Student in an Organized Health Care Education/Training Program
DX: M85.852 Other specified disorders of bone density and structure, left thigh (principal); Z13.820 Encounter for screening for osteoporosis; Z78.0 Asymptomatic menopausal state; M06.9 Rheumatoid arthritis, unspecified; E07.9 Disorder of thyroid, unspecified; Z85.3 Personal history of malignant neoplasm of breast; Z90.722 Acquired absence of ovaries, bilateral
CPT/HCPCS: 77080

== ENCOUNTER → 2021-04-23 13:48 | Outpatient (CLI) | payer MEDICARE, OTHER, SELFPAY ==
[2021-04-23 15:37] LABS: BUN Creatinine Ratio 36.6 (6-22); Blood Urea Nitrogen 34 mg/dL (7-17); Calcium 10.1 mg/dL (8.4-10.2); Carbon Dioxide 25 mmol/L (22-32); Chloride 104 mmol/L (98-107); Estimated Glomerular Filt Rate 58.9 mL/min (>60); Glucose 102 mg/dL (80-110); HEMOLYSIS < 15 (0-50); Potassium 4.8 mmol/L (3.4-5.1); Sodium 140 mmol/L (137-145)
[2021-04-23 16:49] LABS: TSH w/ Reflex to FT4 0.66 uIU/mL (0.47-4.68)
== END ==
PROVIDERS: PCP Student in an Organized Health Care Education/Training Program; Referring Provider Student in an Organized Health Care Education/Training Program; Visit Provider Student in an Organized Health Care Education/Training Program
DX: I10 Essential (primary) hypertension (principal); E03.9 Hypothyroidism, unspecified; M10.9 Gout, unspecified
CPT/HCPCS: 36415; 80048; 84443; 84550

== ENCOUNTER → 2021-08-15 10:59 | Outpatient (CLI) | payer MEDICARE, OTHER, SELFPAY ==
--- NOTE | 2021-08-15 11:00 | DI.RAD.S_ITS ---
PROCEDURE: XR LUMBAR SPINE MIN 4V INDICATIONS: BACK PAIN TECHNIQUE: 5 views of the lumbar spine were acquired, including bilateral oblique views. COMPARISON: [facility], CR, XR LUMBAR SPINE MIN 4V, 09/20/2019, 15:31. FINDINGS: Bones: 5 nonrib-bearing vertebrae are present. Again noted is grade 1 anterolisthesis of L4 on L5 unchanged from previous study and measures up to 8 mm in distance not significantly changed from prior study. Degenerative endplate changes and bilateral facet arthrosis throughout lumbar spine is seen more prominent at L4-5 and L5-S1 levels. No vertebral body compression fractures. No suspicious bony lesions. Soft tissues: Overlying bowel gas pattern is normal. No suspicious soft tissue calcifications. Oblique images: No pars defects. Bilateral bony foraminal stenosis at L4-5 level is seen. IMPRESSION: 1. Stable 8 mm anterolisthesis of L4 on L5. No acute compression fracture. No gross pars defect. 2. Degenerative disc disease throughout lumbar spine more prominent at L4-5 and L5-S1 levels with suggestion of bilateral bony foraminal stenosis at L4-5 level. Dictated by: Nasim Mahan M.D. on 08/15/2021 at 12:14 Approved by: Nasim Mahan M.D. on 08/15/2021 at 12:16
== END ==
PROVIDERS: PCP Student in an Organized Health Care Education/Training Program; Referring Provider Physical Medicine & Rehabilitation; Visit Provider Physical Medicine & Rehabilitation
DX: M47.27 Other spondylosis with radiculopathy, lumbosacral region (principal); M51.26 Other intervertebral disc displacement, lumbar region
CPT/HCPCS: 72110

== ENCOUNTER → 2021-08-25 08:19 | Outpatient (CLI) | payer MEDICARE, OTHER, SELFPAY ==
[2021-08-25 12:05] LABS: COVID19 -Nasal RAPID Negative (Negative)
== END ==
PROVIDERS: PCP Student in an Organized Health Care Education/Training Program; Visit Provider Physical Medicine & Rehabilitation
DX: Z20.822 Contact with and (suspected) exposure to COVID-19 (principal)
CPT/HCPCS: 87635; C9803

== ENCOUNTER 2021-08-26 09:20 | Outpatient (CLI) | payer MEDICARE, OTHER, SELFPAY ==
[2021-08-26] VITALS (7 sets, daily range): BP systolic 129–156; BP diastolic 63–103; PULSE 78–93; RESP 9–21; TEMP 36.2; O2SAT 99–100
--- NOTE | 2021-08-26 09:23 | DI.RAD.S_ITS ---
PROCEDURE: PAIN L INTERLAMINAR/CAUDAL INJ INDICATIONS: SPONDYLOSIS COMPARISON: None. FINDINGS: Fluoroscopic spot filming was performed to verify placement of spinal needles at the L4-L5 level(s), as labeled on the films. Appropriate location(s) of the needle tip(s) was confirmed by injection of iodinated contrast. IMPRESSION: Imaging guidance utilized for pain injection Dictated by: Rich Lerma M.D. on 08/26/2021 at 15:48 Approved by: Rich Lerma M.D. on 08/26/2021 at 15:49
[2021-08-26] MEDS: MIDAZOLAM 5 MG/5 ML VIAL IV (10:42)
[2021-08-26] MEDS: BUPIVACAINE 0.25% (PF) VIAL 2 ML INJ (10:45)
[2021-08-26] MEDS: BETAMETHASONE 30 MG/5 ML MDV 6 MG INJ (10:45)
[2021-08-26] MEDS: IOPAMIDOL 15 ML VIAL 3 ML INJ (10:45)
[2021-08-26] MEDS: DEXAMETHASONE 10 MG/ML VIAL 20 MG INJ (10:46)
--- NOTE | 2021-08-26 10:51 | P.PCN_ITS ---
Date/Time/Diagnoses Date of procedure: 08/26/21 Time of procedure: 10:51 Pre-procedure diagnosis: 1. HNP WITH RADICULAR FEATURES, 2. MULTILEVEL CENTRAL STENOSIS, Post-procedure diagnosis: same Procedure Notes Procedure: 1. FLUOROSCOPICALLY GUIDED CONTRAST CONTROLLED INTERLAMINAR EPIDURAL STEROID INJECTION -L4/5 Indications: Priti is referred by Dr. Townsend for treatment of Bilateral Foraminal Stenosis R>L LE symptoms. Physician: Jerrod Spencer Total Fluoroscopy time (seconds): 4 Total sedation minutes: 5 Complications: none Procedure in detail & Post-procedure care: FINDINGS Multilevel Central Spinal Stenosis with Nerve Root Compression DESCRIPTION OF PROCEDURE Fluoroscopically guided, contrast-controlled L4/5 translaminar epidural steroid injection. Following review of allergy and review of potential side effects and complications, including, but not necessarily limited to, infection, allergic reaction, local tissue breakdown, temporary as well as permanent nerve injury, paralysis, stroke and possible , the patient indicated that the patient understood and agreed to proceed. An informed consent document was signed by the patient, witnessed by a nurse, and placed in the patient's chart. Additionally, other treatment options including modalities, medications, and physical therapy were reviewed with the patient. After review of previous anaesthesic history and IV conscious sedation the patient was deemed safe to proceed with today?s procedure with IV conscious sedation as ASA class II designation. Safety time-out was performed to confirm patient ID, procedure to be performed and site of procedure. IV sedation was accomplished with a combination of 3mg of Versed was administered by the RN after DO order, titrated to patient comfort during the course of the procedure while the patient remained responsive to all verbal commands In the prone position, following sterile prep and drape of the lumbar region, the L4/5 translaminar space was identified fluoroscopically. The skin was anesthetized via a 25-gauge, 1.5inch needle with 1% lidocaine solution. At this point, a 22-gauge short bevel spinal needle was atraumatically introduced and advanced under fluoroscopic guidance into the region of the L4/5 translaminar space. Depth was confirmed on lateral view. Radiological data, including multiple fluoroscopic views of the lumbar spine, re veal a spinal needle at the L4/5 translaminar space. Lateral views then show placement of the needle in the epidural space. Subsequent views show contrast material flowing superiorly and inferiorly in the epidural space. No vascular or intrathecal uptake is observed. At this point, using loss of resistance technique with saline and air, the epidural space was entered. This was confirmed following negative aspiration with injection of approximately 1.5cc of Isovue 200, showing excellent epidural flow without vascular or intrathecal uptake. At this point, 1cc of 1% lidocaine solution combined with 3cc or 20mg of dexamethasone and 6mg betamethasone was injected without incident. The patient tolerated the procedure well without signs or symptoms of complications prior to transfer to the recovery area continued monitoring without incident. The patient was then transferred to the recovery area where they were observed for an appropriate period of time after the injection. The patient reported a VAS score of 6 prior to the procedure and a post- procedure VAS of 0. POST OP INSTRUCTIONS The patient was provided a Pain Log to continue to record their response to the target-specific procedure prior to follow-up visit with their referring physician. Additionally, specific post-injection care instructions and a contact number to our office were provided if concerns arise regarding possible complications associated with the procedure are suspected.
== END 2021-08-26 11:15 | disposition home or self-care (01) ==
PROVIDERS: PCP Student in an Organized Health Care Education/Training Program; Referring Provider Physical Medicine & Rehabilitation; Visit Provider Physical Medicine & Rehabilitation
DX: M51.16 Intervertebral disc disorders with radiculopathy, lumbar region (principal); M48.061 Spinal stenosis, lumbar region without neurogenic claudication
CPT/HCPCS: 62323

== ENCOUNTER → 2022-01-29 11:06 | Outpatient (CLI) | payer MEDICARE, OTHER, SELFPAY ==
[2022-01-29 12:50] LABS: Add Manual Diff / Slide Review NO; Basophils Absolute Auto 0 /uL (0-100); Basophils Percent Auto 0.8 % (0-2); Eosinophils Absolute Auto 200 /uL (0-450); Eosinophils Percent Auto 4.3 % (2-4); Hematocrit 35.6 % (36-46); Hemoglobin 11.9 g/dL (12.0-16.0); Lymphocytes Absolute Auto 1100 /uL (1100-4500); Mean Corpuscular HGB Conc 33.5 % (30-36); Mean Corpuscular Hemoglobin 34.6 PG (26-34); Mean Corpuscular Volume 103.4 fL (80-100); Monocytes Absolute Auto 400 /uL (0-900); Monocytes Percent Auto 6.4 % (3-14); Neutrophils Absolute Auto 3800 /uL (1500-7000); Neutrophils Percent Auto 68.5 % (50-75); Platelet Count 183 X10^3/uL (150-400); Red Blood Cell Count 3.44 X10^6/uL (4.0-5.2); Red Cell Distribution Width 13.4 % (11.6-14.8); White Blood Cell Count 5.6 X10^3/uL (4.5-11.0)
[2022-01-29 13:10] LABS: Erythrocyte Sedimentation Rate 4 MM/HR (0-20)
[2022-01-29 13:15] LABS: Alanine Aminotransferase 27 IU/L (<35); Albumin 4.8 g/dL (3.5-5.0); Alkaline Phosphatase 56 U/L (38-126); Aspartate Aminotransferase 34 IU/L (14-36); BUN Creatinine Ratio 30.6 (6-22); Bilirubin Total 0.7 mg/dL (0.2-1.3); Blood Urea Nitrogen 30 mg/dL (7-17); Calcium 9.6 mg/dL (8.4-10.2); Carbon Dioxide 29 mmol/L (22-32); Chloride 103 mmol/L (98-107); Estimated Glomerular Filt Rate 55.3 mL/min (>60); Globulin 2.4 g/dL (1.7-4.1); Glucose 130 mg/dL (80-110); HEMOLYSIS < 15 (0-50); Sodium 139 mmol/L (137-145); Total Protein 7.2 g/dL (6.3-8.2)
[2022-01-29 13:45] LABS: TSH w/ Reflex to FT4 0.12 uIU/mL (0.47-4.68)
[2022-01-29 13:48] LABS: Ferritin 51 ng/mL (11-264)
[2022-01-29 14:10] LABS: Free T4, Direct Thyroxine 0.66 ng/dL (0.78-2.19)
== END ==
PROVIDERS: PCP Student in an Organized Health Care Education/Training Program; Referring Provider Physician Assistant Medical; Visit Provider Physician Assistant Medical
DX: L56.9 Acute skin change due to ultraviolet radiation, unspecified (principal); L65.9 Nonscarring hair loss, unspecified
CPT/HCPCS: 36415; 80053; 82728; 84439; 84443; 85025; 85651

== ENCOUNTER → 2022-02-20 10:46 | Outpatient (CLI) | payer MEDICARE, OTHER, SELFPAY ==
[2022-02-20 12:15] LABS: Reticulocyte Count, Percent 1.7 % (1.1-2.6)
[2022-02-20 12:18] LABS: HEMOLYSIS < 15 (0-50); Iron 105 ug/dL (37-170)
[2022-02-20 12:20] LABS: BUN Creatinine Ratio 43.2 (6-22); Blood Urea Nitrogen 38 mg/dL (7-17); Calcium 9.4 mg/dL (8.4-10.2); Carbon Dioxide 22 mmol/L (22-32); Chloride 105 mmol/L (98-107); Estimated Glomerular Filt Rate > 60.0 mL/min (>60); Glucose 96 mg/dL (80-110); HEMOLYSIS < 15 (0-50); Lactate Dehydrogenase 519 U/L (313-618); Potassium 4.7 mmol/L (3.4-5.1); Sodium 136 mmol/L (137-145)
[2022-02-20 12:28] LABS: Percent Iron Saturation 27 % (15-50); Total Iron Binding Capacity 395 ug/dL (265-497); Transferrin 323 mg/dL (206-381)
[2022-02-20 12:35] LABS: Free T3, Triiodothyronine Free 3.59 pg/mL (2.77-5.27)
[2022-02-20 12:49] LABS: Thyroid Stimulating Hormone 0.144 uIU/mL (0.47-4.68)
[2022-02-20 13:24] LABS: Folate > 20.0 ng/mL (2.76-20.0); Vitamin B12 724 pg/mL (239-931)
== END ==
PROVIDERS: PCP Student in an Organized Health Care Education/Training Program; Referring Provider Student in an Organized Health Care Education/Training Program; Visit Provider Student in an Organized Health Care Education/Training Program
DX: E03.9 Hypothyroidism, unspecified (principal); D53.9 Nutritional anemia, unspecified; I10 Essential (primary) hypertension; N18.31 Chronic kidney disease, stage 3a
CPT/HCPCS: 36415; 80048; 82607; 82746; 83540; 83550; 83615; 84443; 84481; 85045

== ENCOUNTER → 2022-03-12 10:01 | Outpatient (CLI) | payer MEDICARE, OTHER, SELFPAY ==
--- NOTE | 2022-03-12 | DI.MG.S_ITS ---
BILATERAL DIGITAL SCREENING MAMMOGRAM 3D/2D WITH CAD: 03/12/2022 CLINICAL: Routine screening. Comparison is made to exams dated: 04/11/2019 mammogram, 04/11/2019 mammogram, 04/09/2018 mammogram, 03/10/2021 mammogram, 03/29/2017 mammogram, and 03/27/2016 mammogram - [facility]. The tissue of both breasts is heterogeneously dense. This may lower the sensitivity of mammography. Current study was also evaluated with a Computer Aided Detection (CAD) system. There are benign calcifications in both breasts. There also are benign post operative findings in the right breast. Additionally, there are benign post operative findings and biopsy clip in the left breast. No significant masses, calcifications, or other findings are seen in either breast. There has been no significant interval change. IMPRESSION: BENIGN There is no mammographic evidence of malignancy. A 1 year screening mammogram is recommended. This exam was interpreted at Station ID: [id number]. NOTE: For mammograms, a report in lay terms will be sent to the patient. Approximately 15% of breast malignancies will not be visualized mammographically. In the management of a palpable breast mass, a negative mammogram must not discourage biopsy of a clinically suspicious lesion. Electronically Signed By: Matt randall/haroon:03/12/2022 12:25:49 letter sent: Normal Exam ACR BI-RADS Category 2: Benign Finding(s) 3342F
== END ==
PROVIDERS: PCP Student in an Organized Health Care Education/Training Program; Referring Provider Student in an Organized Health Care Education/Training Program; Visit Provider Student in an Organized Health Care Education/Training Program
DX: Z12.31 Encounter for screening mammogram for malignant neoplasm of breast (principal)
CPT/HCPCS: 77063; 77067

== ENCOUNTER → 2022-07-13 13:26 | Outpatient (CLI) | payer MEDICARE, OTHER, SELFPAY ==
[2022-07-13 16:29] LABS: TSH w/ Reflex to FT4 < 0.02 uIU/mL (0.47-4.68)
[2022-07-15 12:00] LABS: Free T3, Triiodothyronine Free 4.48 pg/mL (2.77-5.27)
== END ==
PROVIDERS: PCP Student in an Organized Health Care Education/Training Program; Referring Provider Student in an Organized Health Care Education/Training Program; Visit Provider Student in an Organized Health Care Education/Training Program
DX: E03.9 Hypothyroidism, unspecified (principal)
CPT/HCPCS: 36415; 84439; 84443; 84481

== ENCOUNTER → 2022-08-25 13:38 | Outpatient (CLI) | payer MEDICARE, OTHER, SELFPAY ==
[2022-08-25 15:29] LABS: Free T3, Triiodothyronine Free 4.43 pg/mL (2.77-5.27); Free T4, Direct Thyroxine 0.63 ng/dL (0.78-2.19)
== END ==
PROVIDERS: PCP Student in an Organized Health Care Education/Training Program; Referring Provider Student in an Organized Health Care Education/Training Program; Visit Provider Student in an Organized Health Care Education/Training Program
DX: E03.9 Hypothyroidism, unspecified (principal)
CPT/HCPCS: 36415; 84439; 84443; 84481

== ENCOUNTER → 2022-10-05 14:04 | Outpatient (CLI) | payer MEDICARE, OTHER, SELFPAY ==
[2022-10-05 15:53] LABS: Free T3, Triiodothyronine Free 3.05 pg/mL (2.77-5.27); Free T4, Direct Thyroxine 0.52 ng/dL (0.78-2.19)
[2022-10-05 16:07] LABS: Thyroid Stimulating Hormone 3.01 uIU/mL (0.47-4.68)
== END ==
PROVIDERS: PCP Student in an Organized Health Care Education/Training Program; Referring Provider Student in an Organized Health Care Education/Training Program; Visit Provider Student in an Organized Health Care Education/Training Program
DX: E03.9 Hypothyroidism, unspecified (principal)
CPT/HCPCS: 36415; 84439; 84443; 84481

== ENCOUNTER → 2022-11-11 07:43 | Outpatient (CLI) | payer MEDICARE, OTHER, SELFPAY ==
[2022-11-11 09:30] LABS: Influenza A - CEPHEID Flu A POSITIVE (NEGATIVE); Influenza B - CEPHEID Flu B NEGATIVE (NEGATIVE); Respiratory Syncytial Virus Negative (Negative)
[2022-11-11 09:33] LABS: COVID-19 CEPHEID 4-PLEX PCR Negative (Negative)
== END ==
PROVIDERS: PCP Student in an Organized Health Care Education/Training Program; Visit Provider Nurse Practitioner Family
DX: R09.81 Nasal congestion (principal); Z20.822 Contact with and (suspected) exposure to COVID-19
CPT/HCPCS: 0241U

== ENCOUNTER → 2023-03-15 11:09 | Outpatient (CLI) | payer MEDICARE, OTHER, SELFPAY ==
--- NOTE | 2023-03-15 | DI.MG.S_ITS ---
BILATERAL DIGITAL SCREENING MAMMOGRAM 3D/2D WITH CAD: 03/15/2023 Comparison is made to exams dated: 03/12/2022 mammogram, 03/10/2021 mammogram, 04/11/2019 mammogram, 03/29/2017 mammogram, 04/11/2019 mammogram, and 04/09/2018 mammogram - [facility]. Both breasts are heterogeneously dense, which may obscure small masses (category c / 51-75% glandular tissue). Current study was also evaluated with a Computer Aided Detection (CAD) system. There are benign calcifications in both breasts. There also are benign post operative findings in the right breast. Additionally, there are benign post operative findings and biopsy clip in the left breast. No significant masses, calcifications, or other findings are seen in either breast. There has been no significant interval change. IMPRESSION: BENIGN There is no mammographic evidence of malignancy. A 1 year screening mammogram is recommended. This exam was interpreted at Station ID: [id number]. NOTE: For mammograms, a report in lay terms will be sent to the patient. Approximately 15% of breast malignancies will not be visualized mammographically. In the management of a palpable breast mass, a negative mammogram must not discourage biopsy of a clinically suspicious lesion. Electronically Signed By: Matt randall/haroon:03/15/2023 15:15:33 letter sent: Normal Exam ACR BI-RADS Category 2: Benign Finding(s) 3342F
== END ==
PROVIDERS: PCP Student in an Organized Health Care Education/Training Program; Referring Provider Student in an Organized Health Care Education/Training Program; Visit Provider Student in an Organized Health Care Education/Training Program
DX: Z12.31 Encounter for screening mammogram for malignant neoplasm of breast (principal)
CPT/HCPCS: 77063; 77067

== ENCOUNTER → 2023-05-10 13:16 | Outpatient (CLI) | payer MEDICARE, OTHER, SELFPAY ==
--- NOTE | 2023-05-10 13:18 | DI.RAD.S_ITS ---
PROCEDURE: XR LUMBAR SPINE MIN 4V INDICATIONS: Left sacral pain, post laminectomy syndrome TECHNIQUE: 5 views of the lumbar spine were acquired, including bilateral oblique views. COMPARISON: [facility], , XR LUMBAR SPINE MIN 4V, 08/15/2021, 11:02. FINDINGS: Bones: 5 nonrib-bearing vertebrae are present. There is stable bony alignment with persistent grade 1 anterolisthesis of L4 on L5 measuring approximately 7 mm. Moderate multilevel lumbar spondylitic changes as before with associated facet arthropathy. Findings are most pronounced at L4-5 and L5-S1. No acute compression fracture. No suspicious bony lesions. Status post previous right total hip arthroplasty. Surgical clips project in the lower and pelvis. Soft tissues: Overlying bowel gas pattern is normal. No suspicious soft tissue calcifications. Oblique images: No definite pars defects. IMPRESSION: Lumbar spine without acute fracture or traumatic malalignment. Stable grade 1 anterolisthesis of L4 on L5 measuring approximately 7 mm. No gross pars defects identified. Dictated by: Nicanor Miranda M.D. on 05/10/2023 at 16:53 Approved by: Nicanor Miranda M.D. on 05/10/2023 at 16:59
== END ==
PROVIDERS: PCP Pediatrics; Referring Provider Physical Medicine & Rehabilitation; Visit Provider Physical Medicine & Rehabilitation
DX: M53.3 Sacrococcygeal disorders, not elsewhere classified (principal); M96.1 Postlaminectomy syndrome, not elsewhere classified; M43.16 Spondylolisthesis, lumbar region; M47.816 Spondylosis without myelopathy or radiculopathy, lumbar region; M51.26 Other intervertebral disc displacement, lumbar region; M47.27 Other spondylosis with radiculopathy, lumbosacral region; Z96.641 Presence of right artificial hip joint; Z98.890 Other specified postprocedural states
CPT/HCPCS: 72110; 99214

== ENCOUNTER → 2023-05-17 07:39 | Outpatient (CLI) | payer MEDICARE, OTHER, SELFPAY ==
--- NOTE | 2023-05-17 07:41 | DI.MRI.S_ITS ---
PROCEDURE: MR LUMBAR SPINE WO CON INDICATIONS: Left sacral pain, post laminectomy syndrome TECHNIQUE: Noncontrast sagittal T1 spin echo and T2 fast echo, sagittal STIR, axial T2 fast spin echo through the lumbar spine. Axial and oblique coronal T1 spin echo and STIR through the sacrum. COMPARISON: [facility], CR, XR LUMBAR SPINE MIN 4V, 05/10/2023, 13:28. [facility], MR, MR LUMBAR SPINE WO CON, 09/29/2019, 8:24. FINDINGS: Image quality: Excellent. Alignment and Curvature: There is 4 mm grade 1 anterolisthesis of L4 on L5 and 3 mm grade 1 retrolisthesis of L5 on S1. Bone Marrow: Right hemilaminotomy changes are noted at the L5-S1 level. Marrow is of normal overall signal. No acute vertebral body compression fractures. No sacral fractures. Metal artifact is partially included related to a right hip arthroplasty. Spinal Cord: Conus medullaris terminates at the L1-2 disc space level. Visualized cord demonstrates normal signal and size. Paraspinous Soft Tissues: No paravertebral masses. Mild scarring of the posterior subcutaneous tissues. Grade 2 fatty infiltration of the paraspinous musculature. No presacral edema. Bilateral proximal hamstring tendinosis. Diverticula are noted in the included colon. T12-L1: Disc desiccation without significant spinal canal stenosis or neural foraminal narrowing. Findings an appear significantly changed when compared to the prior MRI from 09/29/2019. L1-L2: Disc desiccation and circumferential disc bulging and bilateral facet hypertrophy, which result in moderate bilateral neural foraminal narrowing without significant spinal canal stenosis. Findings do not appear significantly changed when compared to the prior MRI. L2-L3: Disc desiccation and mild circumferential disc bulging with moderate bilateral facet hypertrophy and buckling of the ligamentum flavum, which result in mesk-je-datqgxvt narrowing of the spinal canal as well as moderate right and mild left neural foraminal narrowing. Findings appear similar when compared to the prior MRI. L3-L4: Disc desiccation and circumferential disc bulging with moderate bilateral facet hypertrophy and buckling of the ligamentum flavum. Findings result in moderate narrowing of the spinal canal and dvwe-nw-kjpqhzjh narrowing of the bilateral neural foramina. Findings have mildly progressed when compared to the MRI from 09/29/2019. L4-L5: Grade 1 anterolisthesis with uncovering of the disc space and circumferential disc bulging as well as severe bilateral facet hypertrophy and buckling of the ligamentum flavum. Findings result in moderate to severe narrowing of the spinal canal and zxwd-kt-hjltzqvh narrowing of the bilateral neural foramina, not significantly progressed when compared to the MRI from 09/29/2018. L5-S1: Postsurgical changes again seen from right hemilaminotomy with decompression of the spinal canal. There is moderate bilateral facet hypertrophy. Findings result in avof-as-rbyisqxb bilateral neural foraminal narrowing without significant spinal canal stenosis. Sacrum: Sacral neural foramina appear normal throughout. Superior to the piriformis muscles, the pre-plexal structures appear normal, including the lumbosacral trunk and S1 root. Just anterior to the piriformis muscles, the sacral plexus proper demonstrates normal morphology (lumbosacral trunk, S1 to S3 nerve roots). Inferior to the piriformis muscles, the sciatic nerves appear normal. IMPRESSION: 1. At L4-5, anterolisthesis and superimposed degenerative changes result in moderate to severe narrowing of the spinal canal, which is similar to minimally progressed when compared to the MRI from 09/29/2019. 2. Additional multilevel degenerative disc disease and facet hypertrophy as described in detail in the body report. No high-grade neural foraminal narrowing is seen. 3. No acute sacral fracture. No compressive mass is seen along the course of the sacral nerve roots and lumbosacral plexus bilaterally. Approved by: Koby Palafox M.D. on 05/17/2023 at 12:15
== END ==
PROVIDERS: PCP Pediatrics; Referring Provider Physical Medicine & Rehabilitation; Visit Provider Physical Medicine & Rehabilitation
DX: M51.26 Other intervertebral disc displacement, lumbar region (principal); M96.1 Postlaminectomy syndrome, not elsewhere classified; M53.3 Sacrococcygeal disorders, not elsewhere classified; M43.16 Spondylolisthesis, lumbar region; M47.816 Spondylosis without myelopathy or radiculopathy, lumbar region; M47.817 Spondylosis without myelopathy or radiculopathy, lumbosacral region; M48.061 Spinal stenosis, lumbar region without neurogenic claudication; M48.07 Spinal stenosis, lumbosacral region
CPT/HCPCS: 72148

== ENCOUNTER → 2023-05-25 06:39 | Outpatient (CLI) | payer MEDICARE, OTHER, SELFPAY ==
[2023-05-25 07:58] LABS: Add Manual Diff / Slide Review NO; Basophils Absolute Auto 100 /uL (0-100); Eosinophils Absolute Auto 300 /uL (0-450); Eosinophils Percent Auto 4.8 % (2-4); Hematocrit 36.3 % (36-46); Hemoglobin 12.3 g/dL (12.0-16.0); Lymphocytes Absolute Auto 800 /uL (1100-4500); Lymphocytes Percent Auto 14.8 % (25-40); Mean Corpuscular HGB Conc 33.9 % (30-36); Mean Corpuscular Hemoglobin 36.1 PG (26-34); Mean Corpuscular Volume 106.4 fL (80-100); Monocytes Absolute Auto 400 /uL (0-900); Monocytes Percent Auto 8.5 % (3-14); Neutrophils Absolute Auto 3700 /uL (1500-7000); Neutrophils Percent Auto 70.9 % (50-75); Platelet Count 154 X10^3/uL (150-400); Red Blood Cell Count 3.42 X10^6/uL (4.0-5.2); Red Cell Distribution Width 14.1 % (11.6-14.8); White Blood Cell Count 5.2 X10^3/uL (4.5-11.0)
[2023-05-25 08:16] LABS: Alanine Aminotransferase 30 IU/L (<35); Albumin 4.3 g/dL (3.5-5.0); Albumin Globulin Ratio 1.9 (1.0-2.8); Alkaline Phosphatase 63 U/L (38-126); Aspartate Aminotransferase 53 IU/L (14-36); BUN Creatinine Ratio 34.1 (6-22); Bilirubin Total 0.6 mg/dL (0.2-1.3); Blood Urea Nitrogen 31 mg/dL (7-17); Calcium 8.7 mg/dL (8.4-10.2); Carbon Dioxide 26 mmol/L (22-32); Chloride 98 mmol/L (98-107); Cholesterol 162 mg/dL (140-199); Estimated Glomerular Filt Rate > 60 mL/min (>60); Globulin 2.3 g/dL (1.7-4.1); Glucose 89 mg/dL (80-110); HDL Cholesterol 72 mg/dL (40-60); HEMOLYSIS < 15 (0-50); LDL Cholesterol Calculated 65 mg/dL (<100); Potassium 4.8 mmol/L (3.4-5.1); Sodium 132 mmol/L (137-145); Total Protein 6.6 g/dL (6.3-8.2); Triglycerides 126 mg/dL (35-150); Uric Acid 3.1 mg/dL (2.5-6.2)
[2023-05-25 08:42] LABS: TSH w/ Reflex to FT4 4.14 uIU/mL (0.47-4.68)
[2023-05-25 08:54] LABS: Appearance Urine UA CLEAR; Bilirubin Urine UA NEGATIVE (NEGATIVE); Color Urine UA YELLOW; Glucose Urine UA NEGATIVE (Negative); Ketones Urine UA NEGATIVE (NEGATIVE); Leukocyte Esterase Urine UA NEGATIVE (NEGATIVE); Nitrite Urine UA NEGATIVE (Negative); Occult Blood Urine UA NEGATIVE (Negative); Protein Urine UA NEGATIVE (Negative); Urobilinogen Urine UA 0.2 E.U./dL (0.2)
[2023-05-25 09:12] LABS: Bacteria Urine None Seen; Culture Indicated Urine Cult Not Indicated; RBC Urine 0-1/HPF (0-5/HPF); Squamous Epithelial Cell Urine None Seen (0-5/HPF); WBC Urine 0-1/HPF (0-5/HPF); pH Urine UA 5.5 (4.5-8.0)
== END ==
PROVIDERS: PCP Pediatrics; Referring Provider Pediatrics; Visit Provider Pediatrics
DX: Z00.00 Encounter for general adult medical examination without abnormal findings (principal); E03.9 Hypothyroidism, unspecified; M10.9 Gout, unspecified; M47.27 Other spondylosis with radiculopathy, lumbosacral region; M85.80 Other specified disorders of bone density and structure, unspecified site; N18.31 Chronic kidney disease, stage 3a; Z78.0 Asymptomatic menopausal state
CPT/HCPCS: 36415; 80053; 80061; 81001; 84443; 84550; 85025

== ENCOUNTER 2023-06-08 09:51 | Outpatient (CLI) | payer MEDICARE, OTHER, SELFPAY ==
[2023-06-08] VITALS (7 sets, daily range): BP systolic 132–183; BP diastolic 57–82; PULSE 12–82; RESP 13–100; TEMP 36.3; O2SAT 96–99
--- NOTE | 2023-06-08 09:58 | DI.RAD.S_ITS ---
PROCEDURE: PAIN SI JOINT INJECTION INDICATIONS: SACROILIAC DISORDER COMPARISON: [facility], CR, XR LUMBAR SPINE MIN 4V, 05/10/2023, 13:28. FINDINGS: Fluoroscopic spot filming was performed to verify placement of spinal needles at the left SI joint level(s), as labeled on the films. Appropriate location(s) of the needle tip(s) was confirmed by injection of iodinated contrast. IMPRESSION: Intraoperative guidance provided. Dictated by: Matt Roldan M.D. on 06/08/2023 at 21:19 Approved by: Matt Roldan M.D. on 06/08/2023 at 21:20
[2023-06-08] MEDS: MIDAZOLAM 2 MG/2 ML VIAL IV (10:53)
[2023-06-08] MEDS: BETAMETHASONE 30 MG/5 ML MDV 12 MG INJ (11:00)
[2023-06-08] MEDS: IOPAMIDOL 15 ML VIAL 3 ML INJ (11:00)
[2023-06-08] MEDS: BUPIVACAINE 0.5% (PF) 10 ML VIAL 2 ML INJ (11:00)
--- NOTE | 2023-06-08 11:08 | PM.PROC.IR.1 ---
Date/Time/Diagnoses Date of procedure: 06/08/23 Time of procedure: 11:08 Pre-procedure diagnosis: Sacroiliac Joint Pain/DJD Post-procedure diagnosis: same Procedure Notes Procedure: Fluoroscopically guided contrast controlled left sacroiliac joint injection Indications: Camryn is referred by Dr. Gilmore for treatment of left sacroiliac joint DJD Physician: Jerrod Spencer Total Fluoroscopy time (seconds): 10 Total sedation minutes: 13 Complications: none Procedure in detail & Post-procedure care: DESCRIPTION OF PROCEDURE Fluoroscopic guided, contrast controlled left sacroiliac joint injection Following review of allergies and review of potential side effects and complications, including, but not necessarily limited to, infection, allergic reaction, local tissue breakdown, temporary as well as permanent nerve injury, paralysis, stroke and possible , the patient indicated that they understood and agreed to proceed. An informed consent was signed by the patient, witnessed by a nurse, and placed in the patient's chart. Additionally, other treatment options including modalities, medications, and physical therapy were reviewed with the patient. After review of previous anaesthesic history and IV conscious sedation the patient was deemed safe to proceed with today?s procedure with IV conscious sedation as ASA class II designation. Safety time-out was performed to confirm patient ID, procedure to be performed and site of procedure. IV sedation was accomplished with a combination of 2mg of Versed administered by the RN after DO order, titrated to patient comfort during the course of the procedure while the patient remained responsive to all verbal commands. In the prone position following sterile prep and drape of the pelvic region, the hyper lucency on in the inferior aspect of the left sacroiliac joint was identified fluoroscopically the skin was anesthetized be a 25 gauge 1 eventual with approximately 2cc of 1% lidocaine solution. At this point, a 22 gauge 3inch spinal needle was atraumatically introduced and advanced under fluoroscopic guidance into the inferior aspect of the left sacroiliac joint. Following negative aspiration, approximately 0.3cc of Isovue-300 was injected confirming intra-articular placement without vascular uptake. Radiographic data, including multiple fluoroscopic views of the pelvis, reveals a spinal needle in the left sacroiliac joint hyper lucent zone. Subsequent view show flow contrast tear superiorly and inferiorly within the joint capsule without vascular intrathecal uptake. At this point a total of 1cc or 0.5% Marcaine was combined with 1cc of 6mg of betamethasone was injected without incident. The patient tolerated the procedure well without signs or symptoms of complications prior to transfer to the recovery area for further monitoring. The patient was then transferred to the recovery area with a bur observed for an appropriate time after the injection. The patient reverted a vas score of 7 prior to the procedure and postprocedure vas of 1. POSTOP INSTRUCTIONS The patient was provided with a pain like to continue to record the patient's response to the target specific procedure prior to the patient's follow-up visit with the referring physician. Additionally, specific post injection care instructions and a contact number to our office were provided if concerns arise regarding the possible complications associated with procedure are suspected.
== END 2023-06-08 11:28 | disposition home or self-care (01) ==
PROVIDERS: PCP Pediatrics; Referring Provider Physical Medicine & Rehabilitation; Visit Provider Physical Medicine & Rehabilitation
DX: M53.3 Sacrococcygeal disorders, not elsewhere classified (principal); M46.1 Sacroiliitis, not elsewhere classified
CPT/HCPCS: 27096; 99152; J0702; J2250

== ENCOUNTER → 2023-07-05 12:50 | Outpatient (CLI) | payer MEDICARE, OTHER, SELFPAY ==
[2023-07-05 14:23] LABS: BUN Creatinine Ratio 26.2 (6-22); Blood Urea Nitrogen 27 mg/dL (7-17); Calcium 9.3 mg/dL (8.4-10.2); Carbon Dioxide 30 mmol/L (22-32); Chloride 102 mmol/L (98-107); Estimated Glomerular Filt Rate 56 mL/min (>60); Glucose 102 mg/dL (80-110); HEMOLYSIS < 15 (0-50); Potassium 4.1 mmol/L (3.4-5.1); Sodium 137 mmol/L (137-145)
[2023-07-05 15:27] LABS: Folate > 20.0 ng/mL (2.76-20.0); Vitamin B12 Reflex MMA if <400 866 pg/mL (239-931)
== END ==
PROVIDERS: PCP Pediatrics; Referring Provider Pediatrics; Visit Provider Pediatrics
DX: D53.9 Nutritional anemia, unspecified (principal); E87.1 Hypo-osmolality and hyponatremia
CPT/HCPCS: 36415; 80048; 82607; 82746

== ENCOUNTER 2023-08-17 07:27 | Outpatient (CLI) | payer MEDICARE, OTHER, SELFPAY ==
[2023-08-17] VITALS (9 sets, daily range): BP systolic 145–199; BP diastolic 68–93; PULSE 74–93; RESP 16–20; TEMP 36.1; O2SAT 98–100
--- NOTE | 2023-08-17 07:28 | DI.RAD.S_ITS ---
PROCEDURE: PAIN L/S TRANSFORAMINAL INJECT INDICATIONS: SPONDYLOSIS COMPARISON: [facility], , PAIN L/S TRANSFORAMINAL INJECT, 04/23/2020, 8:58. FINDINGS: Fluoroscopic spot filming was performed to verify placement of a spinal needle at the L4-L5 level, as labeled on the films. Appropriate location of the needle tip was confirmed by injection of iodinated contrast. IMPRESSION: Intraprocedural examination within normal limits. Dictated by: Silver Mata M.D. on 08/17/2023 at 11:28 Approved by: Silver Mata M.D. on 08/17/2023 at 11:28
[2023-08-17] MEDS: MIDAZOLAM 2 MG/2 ML VIAL IV (08:17)
[2023-08-17] MEDS: DEXAMETHASONE 10 MG/ML VIAL INJ (08:20)
[2023-08-17] MEDS: BUPIVACAINE 0.25% (PF) VIAL 1 ML INJ (08:20)
[2023-08-17] MEDS: BETAMETHASONE 30 MG/5 ML MDV 6 MG INJ (08:20)
[2023-08-17] MEDS: IOPAMIDOL 15 ML VIAL 3 ML INJ (08:20)
--- NOTE | 2023-08-17 08:35 | P.PCN_ITS ---
Date/Time/Diagnoses Date of procedure: 08/17/23 Time of procedure: 08:36 Pre-procedure diagnosis: 1. FORAMINAL STENOSIS WITH LE SYMPTOMS Post-procedure diagnosis: same Procedure Notes Procedure: 1. FLUOROSCOPICALLY GUIDED CONTRAST CONTROLLED TRANSFORAMINAL EPIDURAL STEROID INJECTION - LEFT L4/5 Indications: Camryn is referred by Dr. Gilmore for treatment of Foraminal Stenosis with Left LE Symptoms Physician: Jerrod Spencer Total Fluoroscopy time (seconds): 11 Total sedation minutes: 13 Complications: none Procedure in detail & Post-procedure care: FINDINGS Foraminal Nerve Root Compression secondary to disc disease and facet hypertrophy DESCRIPTION OF PROCEDURE Following review of allergy and review of potential side effects and complications, including, but not necessarily limited to, infection, allergic reaction, local tissue breakdown, stroke, temporary or permanent nerve injury, paralysis, and possible , the patient indicated that the patient understood and agreed to proceed. An informed consent document was signed by the patient, witnessed by a nurse, and placed in the patient's chart. Additionally, other treatment options including medications, modalities, and physical therapy were reviewed with the patient. After review of previous anaesthesic history and IV conscious sedation the patient was deemed safe to proceed with today?s procedure with IV conscious sedation as ASA class II designation. Safety time-out was performed to confirm patient ID, procedure to be performed and site of procedure. IV sedation was accomplished with a combination of 2mg of Versed administered by the RN after DO order, titrated to patient comfort during the course of the procedure while the patient remained responsive to all verbal commands In the prone position following sterile prep and drape of the lumbar region, the left L4/5 posterior neuroforamen was identified fluoroscopically. The skin was anesthetized via a 25-gauge 1.5-inch needle with 1% lidocaine solution. At this point, a 25-gauge 3.5-inch spinal needle was atraumatically introduced and advanced under fluoroscopic guidance through the posterior left L4/5 neuroforamen to approximately the anterior aspect of the canal. Depth was confirmed on lateral view. Following negative aspiration, injection of approximately 1.5 cc of Isovue 200 under live fluoroscopy in the AP view confirmed excellent flow along the nerve root, into the epidural space without vascular or intrathecal uptake observed Radiological data, including multiple fluoroscopic views of the lumbosacral spine, reveal a spinal needle at the left L4/5 posterior neuroforamen. Subsequent views show flow of contrast material flowing superiorly and inferiorly along the nerve root confirming epidural flow. Subsequently, a test dose of 1.5 cc of 1% lidocaine solution was administered and patient was observed for two minutes for signs or symptoms of complications, including abdominal pain, shortness of breath, bilateral upper or lower extremity weakness, nausea and vomiting, prior to steroid injection. At this point, a total of 2cc or 10mg of dexamethasone and 6mg of betamethasone was injected without incident. The procedure tolerated the procedure well without signs or symptoms of complications prior to transfer to the recovery area continued monitoring without incident. The patient was then transferred to the recovery area where they were observed for an appropriate time after the injection. The patient reported a VAS score of 7 prior to the procedure and a post- procedure VAS of 1. POST OP INSTRUCTIONS The patient was provided a Pain Log to continue to record their response to the target-specific procedure prior to follow-up visit with their referring physician. Additionally, specific post-injection care instructions and a contact number to our office were provided if concerns arise regarding possible complications associated with the procedure are suspected.
== END 2023-08-17 08:53 | disposition home or self-care (01) ==
LOC: RAD 07:27
PROVIDERS: PCP Pediatrics; Referring Provider Physical Medicine & Rehabilitation; Visit Provider Physical Medicine & Rehabilitation
DX: M48.061 Spinal stenosis, lumbar region without neurogenic claudication (principal); M51.16 Intervertebral disc disorders with radiculopathy, lumbar region; M47.26 Other spondylosis with radiculopathy, lumbar region
CPT/HCPCS: 64483; 99152; J0702; J1100; J2250

== ENCOUNTER → 2024-02-25 10:56 | Outpatient (CLI) | payer MEDICARE, OTHER, SELFPAY ==
[2024-02-25 13:04] LABS: TSH w/ Reflex to FT4 1.59 uIU/mL (0.47-4.68)
== END ==
PROVIDERS: PCP Family Medicine; Referring Provider Family Medicine; Visit Provider Family Medicine
DX: E03.9 Hypothyroidism, unspecified (principal); L65.9 Nonscarring hair loss, unspecified; Z79.899 Other long term (current) drug therapy
CPT/HCPCS: 36415; 84443

== ENCOUNTER → 2024-03-16 11:12 | Outpatient (CLI) | payer MEDICARE, OTHER, SELFPAY ==
--- NOTE | 2024-03-16 | DI.MG.S_ITS ---
BILATERAL DIGITAL SCREENING MAMMOGRAM 3D/2D WITH CAD: 03/16/2024 CLINICAL: Routine screening. Comparison is made to exams dated: 03/15/2023 mammogram, 03/12/2022 mammogram, and 03/10/2021 mammogram - [facility]. Both breasts are heterogeneously dense, which may obscure small masses (category c / 51-75% glandular tissue). Current study was also evaluated with a Computer Aided Detection (CAD) system. There are benign post operative findings in the right breast. There also are benign post operative findings and biopsy clip in the left breast. No significant masses, calcifications, or other findings are seen in either breast. There has been no significant interval change. IMPRESSION: BENIGN There is no mammographic evidence of malignancy. A 1 year screening mammogram is recommended. This exam was interpreted at Station ID: [id number]. NOTE: For mammograms, a report in lay terms will be sent to the patient. Approximately 15% of breast malignancies will not be visualized mammographically. In the management of a palpable breast mass, a negative mammogram must not discourage biopsy of a clinically suspicious lesion. Electronically Signed By: Chandrika Bautista M.D., Ph.D. [email or web address]/haroon:03/16/2024 23:30:42 letter sent: Normal Exam ACR BI-RADS Category 2: Benign Finding(s) 3342F
== END ==
LOC: MAMMO 11:14
PROVIDERS: PCP Family Medicine; Referring Provider Family Medicine; Visit Provider Family Medicine
DX: Z12.31 Encounter for screening mammogram for malignant neoplasm of breast (principal); R92.333 Mammographic heterogeneous density, bilateral breasts
CPT/HCPCS: 77063; 77067

== ENCOUNTER 2024-03-18 15:21 | Emergency (ER) | payer MEDICARE, OTHER, SELFPAY ==
[2024-03-18] VITALS (14 sets, daily range): BP systolic 146–224; BP diastolic 58–98; PULSE 92–125; RESP 12–20; TEMP 37.2; O2SAT 97–99; BMI 24.1
--- NOTE | 2024-03-18 15:34 | DI.RAD.S_ITS ---
PROCEDURE: XR CHEST 1V INDICATIONS: chest pain TECHNIQUE: One view of the chest was acquired. COMPARISON: None. FINDINGS: Surgical changes and devices: None. Lungs and pleura: Lungs are clear. No pleural effusions or pneumothorax. Mediastinum: Mediastinal contours appear normal. Heart size is normal. Bones and chest wall: No suspicious bony lesions. Overlying soft tissues appear unremarkable. IMPRESSION: No acute cardiopulmonary abnormality is seen. Dictated by: Girish Nix M.D. on 03/18/2024 at 15:26 Approved by: Girish Nix M.D. on 03/18/2024 at 15:27
--- NOTE | 2024-03-18 15:37 | DI.CT.S_ITS ---
PROCEDURE: CT HEAD/BRAIN WO CON INDICATIONS: HTN and headache TECHNIQUE: Noncontrast 4.5 mm thick angled axial sections acquired from the foramen magnum to the vertex, with coronal and sagittal reformats. For radiation dose reduction, the following was used: automated exposure control, adjustment of mA and/or kV according to patient size. COMPARISON: None. FINDINGS: Image quality: Diagnostic. CSF spaces: Basal cisterns are patent. No extra-axial fluid collections. Ventricles are normal in size and shape. Brain: Mild diffuse parenchymal volume loss with periventricular white matter hypodensities. No midline shift. No intracranial masses or hemorrhage. Godfrey-white matter interface is normal. Skull and face: Calvarium and visualized facial bones are intact, without suspicious lesions. Sinuses: Visualized sinuses and mastoids are clear. IMPRESSION: No acute intracranial pathology. Sequela chronic microvascular ischemic disease. Dictated by: Girish Nix M.D. on 03/18/2024 at 15:40 Approved by: Girish Nix M.D. on 03/18/2024 at 15:42
[2024-03-18 15:57] LABS: Add Manual Diff / Slide Review NO; Basophils Absolute Auto 100 /uL (0-100); Basophils Percent Auto 0.9 % (0-2); Eosinophils Absolute Auto 300 /uL (0-450); Eosinophils Percent Auto 4.9 % (2-4); Hematocrit 40.2 % (36-46); Hemoglobin 13.2 g/dL (12.0-16.0); Lymphocytes Absolute Auto 1500 /uL (1100-4500); Lymphocytes Percent Auto 24.6 % (25-40); Mean Corpuscular HGB Conc 32.9 % (30-36); Mean Corpuscular Hemoglobin 34.5 PG (26-34); Mean Corpuscular Volume 104.9 fL (80-100); Monocytes Absolute Auto 500 /uL (0-900); Monocytes Percent Auto 8.5 % (3-14); Neutrophils Absolute Auto 3800 /uL (1500-7000); Neutrophils Percent Auto 61.1 % (50-75); Platelet Count 181 X10^3/uL (150-400); Red Blood Cell Count 3.83 X10^6/uL (4.0-5.2); White Blood Cell Count 6.2 X10^3/uL (4.5-11.0)
[2024-03-18] MEDS: HYDRALAZINE 20 MG/ML VIAL 10 MG IV (16:04)
[2024-03-18 16:08] LABS: Alanine Aminotransferase 24 IU/L (<35); Albumin 5.3 g/dL (3.5-5.0); Alkaline Phosphatase 76 U/L (38-126); Aspartate Aminotransferase 38 IU/L (14-36); BUN Creatinine Ratio 22.9 (6-22); Bilirubin Total 0.7 mg/dL (0.2-1.3); Blood Urea Nitrogen 25 mg/dL (7-17); Calcium 9.7 mg/dL (8.4-10.2); Carbon Dioxide 25 mmol/L (22-32); Chloride 105 mmol/L (98-107); Creatine Kinase 191 U/L (30-135); Estimated Glomerular Filt Rate 52 mL/min (>60); Globulin 2.6 g/dL (1.7-4.1); Glucose 93 mg/dL (80-110); HEMOLYSIS < 15 (0-50); Lipase 197 U/L (23-300); Potassium 3.3 mmol/L (3.4-5.1); Sodium 139 mmol/L (137-145); Total Protein 7.9 g/dL (6.3-8.2)
--- NOTE | 2024-03-18 16:10 | ED_ITS ---
HPI - General Adult General Chief complaint: Hypertension Stated complaint: HBP 209/190 Headache sent by [facility] Time Seen by Provider: 03/18/24 15:33 Source: patient Mode of arrival: Ambulatory History of Present Illness HPI narrative: Patient is a 78-year-old female who is here for evaluation of a headache. She has had a headache all week. She states she initially thought that it was just allergies. She has been taking her allergy medications. Today she states she is develop high blood pressure. She normally takes her blood pressure every morning. Systolic blood pressures are normally in the 120s to 130s. This morning it was greater than 200. She denies chest pain, shortness of breath, vision changes, numbness and tingling in the upper and lower extremities. She states that the headache is in the back of her head. She has had high blood pressure in the past and has been on medication but several years ago after having episodes of low blood pressure she was taken off of the medications by her primary doctor in his not had any issues since then. Related Data Home Medications Medication Instructions Recorded Confirmed multivitamin 1 cap PO DAILY 07/01/18 09/27/23 acetaminophen 500 mg tablet 500 mg PO Q6H PRN 05/20/20 09/27/23 (Tylenol Extra Strength) dutasteride 0.5 mg capsule 0.5 mg PO DAILY 09/08/22 09/27/23 Previous Rx's Medication Instructions Recorded allopurinol 300 mg tablet 300 mg PO QDAY #90 tabs 12/08/23 pravastatin 20 mg tablet 20 mg PO DAILY #90 tabs 02/09/24 thyroid (pork) 60 mg tablet 60 mg PO DAILY #90 tabs 02/25/24 Allergies Allergy/AdvReac Type Severity Reaction Status Date / Time lisinopril Allergy Severe ANAPHYLAXIS Verified 03/18/24 15:26 amoxicillin Allergy Intermediate HIVES Verified 03/18/24 15:26 adhesive Allergy Mild RASH Verified 03/18/24 15:26 latex Allergy Mild RASH Verified 03/18/24 15:26 Sulfa (Sulfonamide Allergy Mild RASH Verified 03/18/24 15:26 Antibiotics) clavulanic acid AdvReac Mild DIARRHEA Verified 03/18/24 15:26 codeine AdvReac Mild VOMITING Verified 03/18/24 15:26 morphine AdvReac Mild VOMITING Verified 03/18/24 15:26 oxycodone AdvReac Mild VOMITING Verified 03/18/24 15:26 Review of Systems Review of Systems Narrative: See HPI Patient History Medical History Hyponatremia Encounter for Medicare annual wellness exam Sacral dysfunction Dupuytren's contracture of right hand Vertigo Otitis externa Lumbosacral spondylosis with radiculopathy Herniated nucleus pulposus, L4-5 Greater trochanteric bursitis of left hip Gout Right foot drop Essential tremor History of environmental allergies DDD (degenerative disc disease) Osteoporosis 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) Endometriosis GERD (gastroesophageal reflux disease) Lobular carcinoma in situ (LCIS) of right breast Bruises easily Seasonal allergic reaction Chronic diarrhea Asthma Osteoarthritis Thyroid disease IBS (irritable bowel syndrome) Hypertension Essential hypertension (11/20/11) Surgical History Dupuytrens contracture (~2009) History of arthroplasty (~2009) History of bilateral salpingo-oophorectomy (BSO) (~1975) History of esophagogastroduodenoscopy (EGD) History of hysterectomy History of lumbar laminectomy History of removal of cyst History of spinal fusion (~1992) History of total right hip arthroplasty S/P BSO (bilateral salpingo-oophorectomy) (~1981) Status post breast biopsy (~1993) Status post breast reduction (~2012) Status post colonoscopy (~2012) Status post hysterectomy (~1975) Family History Father Asthma Congestive heart failure Mother Hyperlipidemia Kidney disease Social History household members: spouse Smoking Status: Former smoker alcohol intake: current Smoking Status: Former smoker alcohol intake frequency: 0-2 drinks per day Substance Use Type: does not use Exam Initial Vital Signs Initial Vital Signs: Vital Signs Temperature 98.9 F 03/18/24 15:26 Pulse Rate 95 H 03/18/24 15:26 Respiratory Rate 20 03/18/24 15:26 Blood Pressure 224/98 H 03/18/24 15:26 Pulse Oximetry 99 03/18/24 15:26 Oxygen Delivery Method Room Air 03/18/24 15:26 Const General: cooperative, comfortable and No ill appearing HENMN Head: normal to inspection and normocephalic Resp Effort & Inspection: normal respiratory effort Auscultation: clear to auscultation bilaterally Cardio Rate: regular rate Rhythm: regular rhythm GI Inspection: non-distended Neuro General: patient alert, patient awake, patient oriented x3 and moves all extremities Extrem General: normal to inspection and capillary refill normal Course Orders Ordered: ED Orders 03/18/24 15:33 EKG-12 Lead Stat 03/18/24 15:34 XR chest 1V Stat 03/18/24 15:37 CT head/brain wo con Stat 03/18/24 15:45 Complete Blood Count AUTO DIFF Stat Comprehensive Metabolic Panel Stat Lipase Stat Troponin & CK Cardiac Panel Stat 03/18/24 16:41 EKG-12 Lead Stat Discontinued Medications Hydralazine HCl (Hydralazine 20 Mg/Ml Vial) 10 mg IV NOW ONE Stop: 03/18/24 15:38 Last Admin: 03/18/24 16:04 Dose: 10 mg Documented By: CHRISS Acetaminophen (Ofirmev) 1,000 mg in 100 mls @ 400 mls/hr IV NOW ONE Stop: 03/18/24 16:25 Last Infusion: 03/18/24 16:41 Dose: Infused Documented By: Admin: 03/18/24 16:20 Dose: 400 mls/hr Documented By: CHRISS Vital Signs Vital signs: Vital Signs - 8 hr 03/18/24 15:26 03/18/24 15:38 03/18/24 16:00 Temperature 98.9 F Pulse Rate 95 H 100 H 92 H Respiratory Rate 20 Blood Pressure 224/98 H Pulse Oximetry 99 99 99 Oxygen Delivery Method Room Air 03/18/24 16:01 03/18/24 16:01 03/18/24 16:10 Temperature Pulse Rate 92 H Respiratory Rate 18 Blood Pressure 204/88 H 194/81 H Pulse Oximetry 99 Oxygen Delivery Method 03/18/24 16:10 03/18/24 16:20 03/18/24 16:20 Temperature Pulse Rate 100 H 99 H Respiratory Rate 18 14 Blood Pressure 170/73 H Pulse Oximetry 99 99 Oxygen Delivery Method 03/18/24 16:30 03/18/24 16:30 Temperature Pulse Rate 100 H Respiratory Rate 17 Blood Pressure 153/66 H Pulse Oximetry 99 Oxygen Delivery Method Medical Decision Making Lab Data Lab results reviewed: Yes I reviewed the patient's lab results. 03/18/24 15:45 03/18/24 15:45 Labs: Lab Results 03/18/24 Range/Units 15:45 WBC 6.2 (4.5-11.0) X10^3/uL RBC 3.83 L (4.0-5.2) X10^6/uL Hgb 13.2 (12.0-16.0) g/dL Hct 40.2 (36-46) % MCV 104.9 H (80-100) fL MCH 34.5 H (26-34) PG MCHC 32.9 (30-36) % RDW 14.0 (11.6-14.8) % Plt Count 181 (150-400) X10^3/uL Neut % (Auto) 61.1 (50-75) % Lymph % (Auto) 24.6 L (25-40) % Brooks % (Auto) 8.5 (3-14) % Eos % (Auto) 4.9 H (2-4) % Baso % (Auto) 0.9 (0-2) % Neut # (Auto) 3800 (3620-7526) /uL Lymph # (Auto) 1500 (6877-0208) /uL Brooks # (Auto) 500 (0-900) /uL Eos # (Auto) 300 (0-450) /uL Baso # (Auto) 100 (0-100) /uL Sodium 139 (137-145) mmol/L Potassium 3.3 L (3.4-5.1) mmol/L Chloride 105 (98-107) mmol/L Carbon Dioxide 25 (22-32) mmol/L BUN 25 H (7-17) mg/dL Creatinine 1.09 H (0.52-1.04) mg/dL Estimated GFR 52 L (>60) mL/min BUN/Creatinine Ratio 22.9 H (6-22) Glucose 93 (80-110) mg/dL Calcium 9.7 (8.4-10.2) mg/dL Total Bilirubin 0.7 (0.2-1.3) mg/dL AST 38 H (14-36) IU/L ALT 24 (<35) IU/L Alkaline Phosphatase 76 (38-126) U/L Total Creatine Kinase 191 H (30-135) U/L Troponin I < 0.012 (0.01-0.034) ng/mL Total Protein 7.9 (6.3-8.2) g/dL Albumin 5.3 H (3.5-5.0) g/dL Globulin 2.6 (1.7-4.1) g/dL Albumin/Globulin Ratio 2.0 (1.0-2.8) Lipase 197 (23-300) U/L Imaging Data Chest x-ray: Radiologist's Impression: PROCEDURE: XR CHEST 1V INDICATIONS: chest pain TECHNIQUE: One view of the chest was acquired. COMPARISON: None. FINDINGS: Surgical changes and devices: None. Lungs and pleura: Lungs are clear. No pleural effusions or pneumothorax. Mediastinum: Mediastinal contours appear normal. Heart size is normal. Bones and chest wall: No suspicious bony lesions. Overlying soft tissues appear unremarkable. IMPRESSION: No acute cardiopulmonary abnormality is seen. CT scan - head: Radiologist's Impression: PROCEDURE: CT HEAD/BRAIN WO CON INDICATIONS: HTN and headache TECHNIQUE: Noncontrast 4.5 mm thick angled axial sections acquired from the foramen magnum to the vertex, with coronal and sagittal reformats. For radiation dose reduction, the following was used: automated exposure control, adjustment of mA and/or kV according to patient size. COMPARISON: None. FINDINGS: Image quality: Diagnostic. CSF spaces: Basal cisterns are patent. No extra-axial fluid collections. Ventricles are normal in size and shape. Brain: Mild diffuse parenchymal volume loss with periventricular white matter hypodensities. No midline shift. No intracranial masses or hemorrhage. Godfrey- white matter interface is normal. Skull and face: Calvarium and visualized facial bones are intact, without suspicious lesions. Sinuses: Visualized sinuses and mastoids are clear. IMPRESSION: No acute intracranial pathology. Sequela chronic microvascular ischemic disease. ECG Data Attestation: I personally reviewed and interpreted this ECG as follows: Interpretation: Sinus rhythm Ventricular rate 97 Normal axis Normal QRS Normal QTC No ST T wave changes Repeat EKG Sinus tachycardia Ventricular rate of 116 Normal axis Normal QRS Normal QTC No ST T wave changes MDM Narrative Medical decision making narrative: Patient's blood pressure did improve with hydralazine. Systolic blood pressure is now down to the 140 range. His more consistent with her blood pressure at home. I did this because the patient knew that her baseline blood pressure is 1 20s to 130s and she takes it on a regular basis. After given the hydralazine her heart rate did increase into the 120s. This gradually improved. Her head CT is unremarkable. The rest of her labs are unremarkable. Low suspicion for intracranial hemorrhage. She has been having issues with allergies and sinus congestion which very well could be the cause of her headache. I did discuss all this with the patient. We will hold on starting her on any home blood pressure medicines for now as it appears that the elevation in the blood pressure over the past 24 hours is not consistent with what she is at baseline. She was given return precautions and follow-up instructions. She expressed understanding and agreement. Discharge Plan Departure Patient Disposition: Home Clinical Impression: Hypertension, Headache Instructions: DI for High Blood Pressure Activity Restrictions/Additional Instructions: Recommend that you continue to take all of your medications as directed. Continue to take your blood pressure at home and record the values and talk with your primary doctor about the need for starting any blood pressure medications. Return to the emergency department for new or worsening symptoms. Prescriptions: No Action allopurinol 300 mg tablet 300 mg PO QDAY Qty: 90 1RF pravastatin 20 mg tablet 20 mg PO DAILY Qty: 90 1RF thyroid (pork) 60 mg tablet 60 mg PO DAILY Qty: 90 3RF dutasteride 0.5 mg capsule 0.5 mg PO DAILY multivitamin Capsule 1 cap PO DAILY acetaminophen [Tylenol Extra Strength] 500 mg tablet 500 mg PO Q6H PRN Referrals: Bria Diehl DO [Primary Care Provider] - Stand Alone Forms: Patient Portal/API
[2024-03-18 16:19] LABS: Troponin I < 0.012 ng/mL (0.01-0.034)
[2024-03-18] MEDS: ACETAMINOPHEN IV 1,000 MG/100 ML VIAL 400 MG IV (16:20)
== END 2024-03-18 17:44 | disposition home or self-care (01) ==
PROVIDERS: Emergency Provider Emergency Medicine; PCP Family Medicine
DX: I10 Essential (primary) hypertension (principal); R51.9 Headache, unspecified; R07.9 Chest pain, unspecified; R00.0 Tachycardia, unspecified
CPT/HCPCS: 70450; 71045; 80053; 82550; 83690; 84484; 85025; 93005; 96365; 96375; 99284; J0136; J0360

== ENCOUNTER → 2024-03-20 10:09 | Outpatient (CLI) | payer MEDICARE, OTHER, SELFPAY ==
[2024-03-20 12:14] LABS: TSH w/ Reflex to FT4 2.77 uIU/mL (0.47-4.68)
== END ==
PROVIDERS: PCP Family Medicine; Referring Provider Family Medicine; Visit Provider Family Medicine
DX: E03.9 Hypothyroidism, unspecified (principal)
CPT/HCPCS: 36415; 84443

== ENCOUNTER → 2024-04-04 06:52 | Outpatient (CLI) | payer MEDICARE, OTHER, SELFPAY ==
[2024-04-04 08:28] LABS: BUN Creatinine Ratio 27.2 (6-22); Blood Urea Nitrogen 25 mg/dL (7-17); Carbon Dioxide 28 mmol/L (22-32); Chloride 104 mmol/L (98-107); Cholesterol 149 mg/dL (140-199); Estimated Glomerular Filt Rate > 60 mL/min (>60); Glucose 100 mg/dL (80-110); HDL Cholesterol 63 mg/dL (40-60); HEMOLYSIS < 15 (0-50); LDL Cholesterol Calculated 65 mg/dL (<100); Sodium 139 mmol/L (137-145); Triglycerides 106 mg/dL (35-150)
[2024-04-04 08:30] LABS: Potassium 5.7 mmol/L (3.4-5.1)
[2024-04-04 09:12] LABS: Vitamin B12 922 pg/mL (239-931)
== END ==
LOC: LAB 06:53
PROVIDERS: PCP Family Medicine; Referring Provider Family Medicine; Visit Provider Family Medicine
DX: R51.9 Headache, unspecified (principal); I10 Essential (primary) hypertension; E03.9 Hypothyroidism, unspecified; E78.5 Hyperlipidemia, unspecified; E87.6 Hypokalemia; R71.8 Other abnormality of red blood cells; Z79.899 Other long term (current) drug therapy; Z78.9 Other specified health status
CPT/HCPCS: 36415; 80048; 80061; 82607

== ENCOUNTER → 2024-06-07 11:11 | Outpatient (CLI) | payer MEDICARE, OTHER, SELFPAY | LOC: CAR 11:11 | PROVIDERS: PCP Family Medicine; Referring Provider Family Medicine; Visit Provider Family Medicine | DX: R00.2 Palpitations (principal); E03.9 Hypothyroidism, unspecified; I10 Essential (primary) hypertension; R42 Dizziness and giddiness | CPT/HCPCS: 93242 ==

== ENCOUNTER → 2024-08-01 12:18 | Outpatient (CLI) | payer MEDICARE, OTHER, SELFPAY ==
--- NOTE | 2024-08-01 12:20 | DI.ECHO.S_ITS ---
[facility] [place] [facility]---------+ [facility] : : [address] : : [place] : : [id number] : : Phone: [phone] Echocardiogram Report + + :Name: SKYLER RIVAS Study Date: 08/01/2024 Height: 66 in : :[facility] ReadingLocation: Weight: 135 lb : : Gender: Female BSA: 1.7 m2 : :: 1945 Age: 79 yrs BP: 170/82 mmHg: :Reason For Study: PALPITATIONS : :Ordering Physician: JERALD, : :CINTIA Performed By: Oswald Robles : :Referring: CINTIA MARQUES : + + Interpretation Summary The left ventricle is normal in size and wall thickness. The ejection fraction is estimated to be 50-55%. Diastolic parameters suggest a relaxation abnormality of the left ventricle, consistent with probable normal filling pressures. The right ventricle is borderline dilated. The right ventricular systolic function is normal. The right ventricular systolic pressure is estimated to be at least 32.3 mmHg based on an estimated right atrial pressure of 3 mm Hg. The left atrium is severely dilated. Procedure: A two-dimensional transthoracic echocardiogram with color flow and Doppler was performed. The study quality was technically adequate. There is no prior echocardiogram noted for this patient. The patient was in atrial fibrillation with heart rates between 65-105 bpm during the exam. Left Ventricle: The left ventricle is normal in size and wall thickness. The ejection fraction is estimated to be 50-55%. Diastolic parameters suggest a relaxation abnormality of the left ventricle, consistent with probable normal filling pressures. Right Ventricle: The right ventricle is borderline dilated. The right ventricular systolic function is normal. Atria: The left atrium is severely dilated. The right atrium is mildly dilated. The interatrial septum grossly appears intact with no obvious evidence for an atrial septal defect. Mitral Valve: The mitral valve is normal. There is no mitral valve stenosis. There is mild mitral regurgitation. Aortic Valve: The aortic valve is trileaflet. There is no aortic valve stenosis. No aortic regurgitation is present. Tricuspid Valve: The tricuspid valve is normal. There is no tricuspid stenosis. There is trace tricuspid regurgitation. The right ventricular systolic pressure is estimated to be at least 32.3 mmHg based on an estimated right atrial pressure of 3 mm Hg. Pulmonic Valve: The pulmonic valve is not well visualized. There is no pulmonic valvular stenosis. There is no pulmonic valvular regurgitation. Great Vessels: The aortic root is normal size. The dimensions of the ascending aorta are normal. The IVC is of normal diameter and collapses greater than 50% with a sniff. This suggests a low right atrial pressure of 3 mm Hg. Pericardium/ Pleura There is no pericardial effusion. There is no pleural effusion. MMode/2D Measurements & Calculations LVIDd: 5.6 cm LVOT diam: 1.8 cm LVIDs: 3.8 cm Ao root diam: 2.9 cm FS: 33.4 % asc Aorta Diam: 2.8 cm IVSd: 0.81 cm LVPWd: 0.79 cm LV ortega. diameter/BSA (cm/m^2): 3.3 LV sys. diameter/BSA (cm/m^2): 2.2 LA A2 area: 24.7 cm2 RA long axis: 5.6 cm LA A4 area: 25.1 cm2 RA area: 17.3 cm2 LA length (vol): 5.8 cm RA vol: 45.4 ml LA vol: 89.9 ml RA : 26.8 ml/m2 LA vol index: 53.1 ml/m2 IVC diam: 1.8 cm RVD1 (basal): 4.0 cm RVD2 (mid): 3.0 cm TAPSE: 2.4 cm Doppler Measurements & Calculations Ao V2 max: 161.1 cm/sec LVOT Max Gildardo: 120.1 cm/sec Ao V2 mean: 104.6 cm/sec LV V1 max P.8 mmHg Ao max P.4 mmHg LV V1 VTI: 25.6 cm Ao mean P.2 mmHg WENDY(I,D): 2.0 cm2 Ao V2 VTI: 34.0 cm WENDY(V,D): 2.0 cm2 sev ratio: 0.75 WENDY indexed to BSA (cm^2/m^2): 1.2 MV E max gildardo: 84.8 cm/sec TR max gildardo: 270.6 cm/sec MV A max gildardo: 96.4 cm/sec TR max P.3 mmHg MV E/A: 0.88 PA V2 max: 81.0 cm/sec Med Peak E' Gildardo: 6.4 cm/sec PA V2 mean: 59.6 cm/sec E/E' med: 13.2 PA mean P.6 mmHg Lat Peak E' Gildardo: 6.9 cm/sec PA pr(Accel): 48.7 mmHg E/E' lat: 12.3 E/e' average: 12.8 MV dec time: 0.10 sec SV(LVOT): 67.8 ml Reading Physician:02:59 PM
== END ==
PROVIDERS: PCP Family Medicine; Referring Provider Family Medicine; Visit Provider Family Medicine
DX: R00.2 Palpitations (principal); I51.7 Cardiomegaly
CPT/HCPCS: C8929; Q9957

== ENCOUNTER → 2025-02-08 13:54 | Outpatient (CLI) | payer MEDICARE, OTHER, SELFPAY ==
[2025-02-08 15:32] LABS: Free T3, Triiodothyronine Free 4.45 pg/mL (2.77-5.27)
[2025-02-08 15:46] LABS: Thyroid Stimulating Hormone 1.55 uIU/mL (0.47-4.68)
== END ==
PROVIDERS: PCP Family Medicine; Referring Provider Family Medicine; Visit Provider Family Medicine
DX: R00.0 Tachycardia, unspecified (principal); E03.9 Hypothyroidism, unspecified; I10 Essential (primary) hypertension
CPT/HCPCS: 36415; 84443; 84481

== ENCOUNTER → 2025-03-19 12:50 | Outpatient (CLI) | payer MEDICARE, OTHER, SELFPAY ==
--- NOTE | 2025-03-19 12:52 | DI.MG.S_ITS ---
MM screening mammo BI: 03/19/2025. BI-RADS: 2 CLINICAL: 79-year old female for bilateral screening mammogram. No Tyrer-Cuzick risk score calculation due to the patient's personal history of breast cancer. Patient reports a history of right breast carcinoma diagnosed at age 67. Status-post right lumpectomy. No first-degree family history of breast cancer. The patient had prior bilateral breast biopsies. The patient is status-post reduction mammoplasty. PRIOR EXAMS 03/16/2024, 03/15/2023, 03/12/2022, 03/10/2021, 04/11/2019, 04/09/2018, 03/29/2017, 03/27/2016. MAMMOGRAPHY TECHNIQUE: 2D and 3D (tomosynthesis) digital mammographic views obtained, with additional images as needed for full coverage. Current study was also evaluated with a Computer Aided Detection (CAD) system. DENSITY C. The breasts are heterogeneously dense, which may obscure small masses. MAMMOGRAPHY FINDINGS Right: Benign-appearing calcification and post-surgical changes noted on the right. There are no suspicious masses, calcifications, or other findings in the breast. No significant change from comparison. Left: Biopsy marker present on the left. Benign-appearing calcification and post-surgical changes noted on the left. There are no suspicious masses, calcifications, or other findings in the breast. No significant change from comparison. IMPRESSION: * No evidence of malignancy with benign findings. RECOMMENDATIONS Bilateral * Annual screening mammography. OVERALL ASSESSMENT CATEGORY BI-RADS-2: Benign. The [employer] recommends annual screening mammography beginning at age 40 for women with average risk of breast cancer. ELECTRONICALLY SIGNED: Helena Wood M.D. on 03/19/2025 at 06:30:42 PM PT Interpreting Station ID: [id number]
== END ==
PROVIDERS: PCP Family Medicine; Referring Provider Family Medicine; Visit Provider Family Medicine
DX: Z12.31 Encounter for screening mammogram for malignant neoplasm of breast (principal); Z85.3 Personal history of malignant neoplasm of breast; R92.333 Mammographic heterogeneous density, bilateral breasts
CPT/HCPCS: 77063; 77067

== ENCOUNTER 2025-04-30 04:46 | Emergency (ER) | payer MEDICARE, OTHER, SELFPAY ==
--- NOTE | 2025-04-30 04:56 | ED.GENADULT ---
HPI - General Adult General Chief complaint: Back Pain/Injury Stated complaint: Pain in Rt Hip, Had replacement. Time Seen by Provider: 04/30/25 04:56 History of Present Illness HPI narrative: 79-year-old female with history of prior remote lumbar surgery, history of right hip replacement, complains of right hip and right low back pain after increased activity gardening, and then taking her dog for a walk today. No fall injury twisting like activities recalled. No incontinence of urine or stool. No numbness or tingling to legs. Oral Tylenol not helping, no other medications tried. Related Data Home Medications Medication Instructions Recorded Confirmed multivitamin 1 cap PO DAILY 07/01/18 02/15/25 acetaminophen 500 mg tablet 1,000 mg PO BID PRN 02/15/25 02/15/25 (Tylenol Extra Strength) biotin 10,000 mcg chewable tablet 10,000 mcg PO DAILY 02/15/25 02/15/25 (Hair, Skin and Nails (biotin)) calcium 400 mg 1 tab PO BEDTIME 02/15/25 02/15/25 (carbonate)-magnesium 167 mg (oxide)-D3 133 unit tablet Previous Rx's Medication Instructions Recorded thyroid (pork) 60 mg tablet 60 mg PO DAILY #90 tabs 02/20/25 diltiazem HCl 90 mg 90 mg PO ONCE #90 caps 03/13/25 capsule,extended release 12 hr flecainide 50 mg tablet 50 mg PO Q12H #60 tabs 03/20/25 pravastatin 10 mg tablet 10 mg PO DAILY #90 tabs 04/17/25 hydrocodone 5 mg-acetaminophen 325 1 tab PO Q6H PRN pain #14 tabs 04/30/25 mg tablet methocarbamol 500 mg tablet 500 mg PO TID 7 days #21 tabs 04/30/25 Allergies Allergy/AdvReac Type Severity Reaction Status Date / Time lisinopril Allergy Severe ANAPHYLAXIS Verified 02/15/25 06:40 amoxicillin Allergy Intermediate HIVES Verified 02/15/25 06:40 adhesive Allergy Mild RASH Verified 02/15/25 06:40 latex Allergy Mild RASH Verified 02/15/25 06:40 Sulfa (Sulfonamide Allergy Mild RASH Verified 02/15/25 06:40 Antibiotics) clavulanic acid AdvReac Mild DIARRHEA Verified 02/15/25 06:40 codeine AdvReac Mild VOMITING Verified 02/15/25 06:40 morphine AdvReac Mild VOMITING Verified 02/15/25 06:40 oxycodone AdvReac Mild VOMITING Verified 02/15/25 06:40 Patient History Medical History (Updated 04/30/25 @ 06:26 by Tolu Moseley MD) Influenza A Hyponatremia Sacral dysfunction Dupuytren's contracture of right hand Vertigo Otitis externa Lumbosacral spondylosis with radiculopathy Herniated nucleus pulposus, L4-5 Greater trochanteric bursitis of left hip Gout Right foot drop Essential tremor History of environmental allergies DDD (degenerative disc disease) Osteoporosis 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) Endometriosis GERD (gastroesophageal reflux disease) Lobular carcinoma in situ (LCIS) of right breast Bruises easily Seasonal allergic reaction Chronic diarrhea Asthma Osteoarthritis Thyroid disease IBS (irritable bowel syndrome) Hypertension Essential hypertension (11/20/11) Surgical History History of lumbar laminectomy History of arthroplasty (~2009) S/P BSO (bilateral salpingo-oophorectomy) (~1981) Dupuytrens contracture (~2009) History of removal of cyst History of esophagogastroduodenoscopy (EGD) History of total right hip arthroplasty History of hysterectomy Status post breast reduction (~2012) Status post breast biopsy (~1993) History of spinal fusion (~1992) History of bilateral salpingo-oophorectomy (BSO) (~1975) Status post hysterectomy (~1975) Status post colonoscopy (~2012) Family History Father Asthma Congestive heart failure Mother Hyperlipidemia Kidney disease Social History household members: spouse alcohol intake: current alcohol intake frequency: 0-2 drinks per day Exam Narrative Exam Narrative: GENERAL: Well-developed patient, in mild distress. HEAD: Atraumatic. Normocephalic. EYES: Pupils equal round and reactive. Extraocular motions intact. No scleral icterus. No injection or drainage. ENT: Nose without bleeding, purulent drainage. Throat without erythema, tonsillar hypertrophy or exudate. Airway patent. NECK: Trachea midline. Non tender CARDIOVASCULAR: Regular rate and rhythm without murmurs, gallops, or rubs. RESPIRATORY: Clear to auscultation. Breath sounds equal bilaterally. No wheezes, rales, or rhonchi. GASTROINTESTINAL: Abdomen soft, non-tender, nondistended. EXTREMITIES: No edema or joint tenderness. BACK: Nontender without deformity or crepitance. No flank tenderness. Well-healed low midline lumbar scar, no redness or swelling, no midline tenderness or paraspinal tenderness. Right SI area discomfort on palpation, no skin redness or erythema or induration, no rash or vesicles. NEURO: AOx3. Motor functions grossly nonfocal SKIN: No rash or erythema of visible areas Initial Vital Signs Initial Vital Signs: Vital Signs Temperature 98.7 F 04/30/25 05:00 Pulse Rate 89 04/30/25 05:00 Respiratory Rate 18 04/30/25 05:00 Blood Pressure 212/97 H 04/30/25 05:00 Pulse Oximetry 99 04/30/25 05:00 Oxygen Delivery Method Room Air 04/30/25 05:00 Course Orders Ordered: Discontinued Medications Hydrocodone Bitart/Acetaminophen (Hydrocodone/Acet 5/325 Tablet) 1 tab PO NOW ONE Stop: 04/30/25 05:10 Last Admin: 04/30/25 05:16 Dose: 1 tab Documented By: GERARDO Ondansetron HCl (Ondansetron 4 Mg Odt) 4 mg SL NOW ONE Stop: 04/30/25 05:10 Last Admin: 04/30/25 05:17 Dose: 4 mg Documented By: GERARDO Vital Signs Vital signs: Vital Signs - 8 hr 04/30/25 05:00 Temperature 98.7 F Pulse Rate 89 Respiratory Rate 18 Blood Pressure 212/97 H Pulse Oximetry 99 Oxygen Delivery Method Room Air Medical Decision Making [facility] Narrative Medical decision making narrative: 79-year-old female with right hip replacement surgery, lumbar laminectomy surgery, recent garden activities, right-sided SI area tenderness on exam, right hip pain. DDx overuse hip, musclar strain, occult loosening hip and/or lumbar spine hardware, other. Declines injectable analgesia for now. Wants oral treatments. Hydrocodone/APAP, ODT Zofran. CT abdomen and pelvis noncontrast study ordered, to visualize right hip, as well as pelvis and lumbar spine. CT abdomen and pelvis noncontrast study. Impressions: ?No acute finding. Small ground-glass pulmonary nodules of the lung bases of to 4 mm, recommend considering CT chest follow up 3-6 months. Diverticulosis coli, negative for acute diverticulitis.. see teleradiology report. Trial of muscle relaxant and pain medications. Discharged home with family. Return precautions discussed. Discharge Plan Departure Patient Disposition: Home Clinical Impression: Back pain, Chronic low back pain Activity Restrictions/Additional Instructions: History of prior back surgery, history of prior right hip replacement surgery. Recent garden activities and walking activities. Increased right-sided low back pain with tenderness on soft tissue structures in the region of the sacroiliac joint. CT imaging abdomen and pelvis was performed to look for the lumbar spine, as well as the hip structures. Hardware from previous surgeries appears intact. No definite acute changes. See radiology report. No compelling indication to emergently contact or consult or transfer to neurosurgeon or to Orthopedic surgery at this time. Trial of muscle relaxant and pain medication for now. Recheck with your regular doctor in the next couple of days. Return to this/nearest emergency department for any change worsening symptoms or any concerns prior. Small lung nodules incidentally noted in upper windows of abdomen imaging tonight, consider follow up 3-6 months recommended by Radiology. Prescriptions: New methocarbamol 500 mg tablet 500 mg PO TID 7 Days Qty: 21 0RF hydrocodone-acetaminophen 5-325 mg tablet 1 tab PO Q6H PRN (Reason: pain) Qty: 14 0RF No Action thyroid (pork) 60 mg tablet 60 mg PO DAILY Qty: 90 3RF diltiazem HCl 90 mg capsule,extended release 12 hr 90 mg PO ONCE Qty: 90 2RF flecainide 50 mg tablet 50 mg PO Q12H Qty: 60 2RF pravastatin 10 mg tablet 10 mg PO DAILY Qty: 90 0RF calcium carb-mag oxide-vit D3 400-167-133 mg-mg-unit tablet 1 tab PO BEDTIME Hair, Skin and Nails (biotin) 10,000 mcg tablet,chewable 10,000 mcg PO DAILY multivitamin Capsule 1 cap PO DAILY acetaminophen [Tylenol Extra Strength] 500 mg tablet 1,000 mg PO BID PRN Referrals: Bria Diehl DO [Primary Care Provider] - Stand Alone Forms: Patient Portal/API/Survey
[2025-04-30 05:00] VITALS: BP 212/97; PULSE 89; RESP 18; TEMP 37.1; O2SAT 99; BMI 24.4
[2025-04-30 05:07] VITALS: PULSE 86; O2SAT 97
--- NOTE | 2025-04-30 05:09 | DI.CT.S_ITS ---
PROCEDURE: CT ABDOMEN PELVIS WO CON INDICATIONS: left hip/Lsp pain, hx KODY, Lsp surgery TECHNIQUE: Axial sections were acquired from the lung bases to the pubic symphysis. Coronal and sagittal reformats were performed. For radiation dose reduction, the following was used: automated exposure control, adjustment of mA and/or kV according to patient size. COMPARISON: None. FINDINGS: Image quality: Diagnostic. Lower Chest: Ground-glass nodules are seen in the lung bases bilaterally measuring up to 4 mm. URINARY: Right Kidney: No stones or hydronephrosis. Right Ureter: No hydroureter. Left Kidney: Subcentimeter hyperdense lesion at the inferior pole of the left kidney, likely a small hemorrhagic cyst but not well characterized. No stones or hydronephrosis. Left Ureter: No hydroureter. Bladder: Normal wall thickness. No stones. ABDOMEN: Liver: No contour-deforming solid mass. Gallbladder: No radiopaque gallstones or wall thickening. Biliary ducts: No biliary dilation. Pancreas: No ductal dilation. Spleen: Size is within normal limits. Adrenal Glands: No adrenal nodules. Stomach and Bowel: Small hiatal hernia. Multiple diverticula are seen in the colon without signs of acute diverticulitis. Small bowel loops are unremarkable. Peritoneum: No abnormal intraperitoneal fluid. No free air. Ventral Wall: No hernia. Abdominal Nodes: No enlarged retroperitoneal or mesenteric lymph nodes. Vessels: Aorta and inferior vena cava are normal in size. PELVIS: Pelvic Organs: Status post hysterectomy. Pelvic Nodes: Unremarkable. Miscellaneous: Small fat containing inguinal hernias, greater on the left than on the right.. Bones: Postsurgical changes from right total hip arthroplasty with expected streak artifact that partially obscures adjacent structures. At least moderate degenerative changes are seen in the contralateral left hip. Degenerative changes are seen in the pubic symphysis, sacroiliac joints, and included spine. Grade 1 anterolisthesis of L4 on L5 secondary to facet hypertrophy. IMPRESSION: 1. No acute abnormality identified in the abdomen or pelvis. 2. Small bilateral ground-glass pulmonary nodules. Consider follow-up CT chest in 3-6 months based on Fleischner society guidelines. 3. Colonic diverticulosis without signs of acute diverticulitis. Small hiatal hernia. 4. Moderate to severe degenerative changes in the left hip and lumbar spine. 5. Small bilateral fat containing inguinal hernias. There is no significant discrepancy when compared to the overnight preliminary report. Approved by: Koby Palafox M.D. on 04/30/2025 at 8:52
[2025-04-30] MEDS: HYDROCODONE/ACET 5/325 TABLET 1 TAB PO (05:16)
[2025-04-30] MEDS: ONDANSETRON 4 MG ODT SL (05:17)
[2025-04-30 05:30] VITALS: PULSE 77; O2SAT 98
[2025-04-30 06:00] VITALS: PULSE 75; O2SAT 97
[2025-04-30 06:02] VITALS: BP 214/91; PULSE 80; RESP 18; O2SAT 97
== END 2025-04-30 06:43 | disposition home or self-care (01) ==
PROVIDERS: Emergency Provider Emergency Medicine; PCP Family Medicine
DX: M54.50 Low back pain, unspecified (principal); M25.551 Pain in right hip; Y93.H2 Activity, gardening and landscaping
CPT/HCPCS: 74176; 99283; 99284

== ENCOUNTER → 2025-05-07 15:52 | Outpatient (CLI) | payer MEDICARE, OTHER, SELFPAY ==
--- NOTE | 2025-05-07 15:56 | DI.MRI.S_ITS ---
PROCEDURE: MR PELVIS WO CON INDICATIONS: R hip pain TECHNIQUE: Noncontrast coronal and axial T1 spin echo and STIR through the bony pelvis. COMPARISON: [facility], CT, CT ABDOMEN PELVIS WO CON, 04/30/2025, 5:23. FINDINGS: Image quality: Excellent. Bones: Mild fibrovascular end plate change at the visualized lower lumbar spine. The sacrum is intact. Moderate central canal stenosis at L4-5. Moderate degenerative changes of bilateral sacroiliac joint with subchondral marrow edema about the anterior and posterior iliac joints bilaterally. Status post right total hip arthroplasty, creates artifacts and limits evaluation. Mild degenerative changes of the left hip with small left hip effusion. No acute fracture or dislocation of the left hip. No avascular necrosis of the left femoral head. Tendons: The right iliopsoas tendon, adductor, tendons unremarkable. Low-grade tear of the right hamstring tendon, at the ischial tuberosity. The right gluteal minimus and medius are grossly unremarkable. The left iliopsoas, adductor, and hamstring tendons are unremarkable. Low-grade tear of the left gluteal minimus. The left gluteal medius tendon is unremarkable. Soft tissues: Sigmoid colon diverticulosis. IMPRESSION: 1. Moderate degenerative changes of bilateral sacroiliac joint. 2. Status post right total hip arthroplasty, creating artifacts and limits evaluation. 3. Mild degenerative change of the left hip. 4. Low-grade tear of the right hamstring tendon. 5. Low-grade tear of the left gluteal minimus. Dictated by: Lisa He M.D. on 05/08/2025 at 16:34 Approved by: Lisa He M.D. on 05/08/2025 at 16:41
--- NOTE | 2025-05-07 15:57 | DI.MRI.S_ITS ---
PROCEDURE: MR LUMBAR SPINE WO CON INDICATIONS: CHRONIC LOWER BACK PAIN TECHNIQUE: Noncontrast sagittal T1 spin echo and T2 fast echo, sagittal STIR, and T2 fast spin echo through the lumbar spine. In cases with scoliosis, additional coronal T2 fast spin echo may be performed. COMPARISON: [facility], MR, MR LUMBAR SPINE WO CON, 09/29/2019, 8:24. [facility], MR, MR LUMBAR SPINE WO CON, 05/17/2023, 7:45. [facility], MR, MR PELVIS WO CON, 05/07/2025, 16:09. [facility], CT, CT ABDOMEN PELVIS WO CON, 04/30/2025, 5:23. FINDINGS: Image quality: Excellent. Alignment and Curvature: There is normal bony alignment. Bone Marrow: Marrow is of normal overall signal. No acute vertebral body compression fractures. Spinal Cord: Conus medullaris terminates at the L1 level. Visualized cord demonstrates normal signal and size. Paraspinous Soft Tissues: No paravertebral masses. T12-L1: No significant abnormality is seen. L1-L2: The disc height is well-preserved. Loss of disc signal is seen at this level. Mild generalized disc bulge is seen. Moderate bilateral neural foraminal narrowing is seen. Mild central canal narrowing is seen. When comparison is made with the prior images, these findings are similar. L2-L3: The disc height is well-preserved. Loss of disc signal is seen at this level. Moderate generalized disc bulge is seen. Moderate facet joint hypertrophy is seen. Associated hypertrophy of the ligamentum flavum can be seen. Moderate bilateral neural foraminal narrowing is seen. Moderate central canal narrowing is seen. No significant change from the prior. L3-L4: Mild loss of disc height is seen. Loss of disc signal is seen. Moderate generalized disc bulge is seen. There is a significant central/right disc extrusion seen, with superior migration of the disc material. The extruded disc material measures 18 mm craniocaudal. Moderate facet joint hypertrophy is seen. Associated hypertrophy of the ligamentum flavum can be seen. There is moderate left-sided neural foraminal narrowing. Moderate to severe right-sided neural foraminal narrowing is seen, with a degree of compression upon the exiting nerve roots. Severe central canal narrowing is seen, as on series 5, image 21. The disc extrusion is new compared to 2022. L4-L5: The disc height is well-preserved. Loss of disc signal is seen at this level. Moderate generalized disc bulge is seen. There is a superimposed central disc protrusion. Moderate facet joint hypertrophy is seen. Mild to moderate neural foraminal narrowing is seen. At least moderate central canal narrowing can be seen. There is mild progression of degenerative change compared to the prior. L5-S1: At least moderate loss of disc height and disc signal can be seen. Reactive marrow endplate changes are seen, which are hyperintense on T1-weighted and T2- weighted imaging and most consistent with fatty metaplasia (Modic type II changes). Mild to moderate disc bulge is seen, which is eccentric to the left. Prior right hemilaminectomy change can be seen. Mild facet joint hypertrophy is seen. There is at least moderate right-sided and moderate left-sided neural foraminal narrowing. No central canal narrowing is seen. These imaging findings have progressed compared to the prior study. IMPRESSION: At the L3-L4 level, there is a new central/right disc extrusion, with severe central canal narrowing and moderate to severe right-sided neural foraminal narrowing. Lumbar spine degenerative changes are seen elsewhere, which are progressed inferiorly compared to 2022. Dictated by: Silver Mata M.D. on 05/08/2025 at 10:24 Approved by: Silver Mata M.D. on 05/08/2025 at 10:33
== END ==
PROVIDERS: PCP Family Medicine; Referring Provider Family Medicine; Visit Provider Family Medicine
DX: S76.811A Strain of other specified muscles, fascia and tendons at thigh level, right thigh, initial encounter (principal); S76.012A Strain of muscle, fascia and tendon of left hip, initial encounter; M25.551 Pain in right hip; R93.7 Abnormal findings on diagnostic imaging of other parts of musculoskeletal system; M51.26 Other intervertebral disc displacement, lumbar region; M47.818 Spondylosis without myelopathy or radiculopathy, sacral and sacrococcygeal region; M48.061 Spinal stenosis, lumbar region without neurogenic claudication; M48.07 Spinal stenosis, lumbosacral region; M47.816 Spondylosis without myelopathy or radiculopathy, lumbar region; M47.817 Spondylosis without myelopathy or radiculopathy, lumbosacral region; M25.452 Effusion, left hip; K57.30 Diverticulosis of large intestine without perforation or abscess without bleeding; Z96.641 Presence of right artificial hip joint
CPT/HCPCS: 72148; 72195

== ENCOUNTER → 2025-05-18 14:45 | Outpatient (CLI) | payer MEDICARE, OTHER, SELFPAY ==
[2025-05-18 15:22] LABS: Bilirubin Urine UA NEGATIVE (NEGATIVE); Color Urine UA YELLOW; Glucose Urine UA NEGATIVE (Negative); Ketones Urine UA NEGATIVE (NEGATIVE); Leukocyte Esterase Urine UA 2+ (NEGATIVE); Nitrite Urine UA NEGATIVE (Negative); Occult Blood Urine UA 3+ (Negative); Protein Urine UA 1+ (Negative); Urobilinogen Urine UA 0.2 E.U./dL (0.2)
[2025-05-18 15:23] LABS: Appearance Urine UA CLOUDY
[2025-05-18 15:29] LABS: RBC Urine 0-1/HPF (0-5/HPF); Urine Volume Low Vol <10mL (spun); WBC Urine 30-100/HPF (0-5/HPF)
[2025-05-18 15:30] LABS: Bacteria Urine Moderate (10-30); Culture Indicated Urine Specimen Cultured; Squamous Epithelial Cell Urine None Seen (0-5/HPF)
== END ==
PROVIDERS: PCP Family Medicine; Referring Provider Family Medicine; Visit Provider Family Medicine
DX: R39.198 Other difficulties with micturition (principal); R50.9 Fever, unspecified
CPT/HCPCS: 81001; 87077; 87086; 87186

== ENCOUNTER 2025-05-18 15:34 | Inpatient (IN) | payer MEDICARE, OTHER, SELFPAY ==
[2025-05-18] VITALS (10 sets, daily range): BP systolic 138–178; BP diastolic 62–103; PULSE 94–116; RESP 12–30; TEMP 36.4–39.6; O2SAT 96–99; BMI 21.1; BMI 21.9
--- NOTE | 2025-05-18 15:53 | DI.RAD.S_ITS ---
PROCEDURE: XR CHEST 1V INDICATIONS: suspected sepsis TECHNIQUE: One view of the chest was acquired. COMPARISON: [facility], CR, XR CHEST 1V, 03/18/2024, 15:44. FINDINGS: Surgical changes and devices: None. Lungs and pleura: Lungs are clear. No pleural effusions or pneumothorax. Mediastinum: Mediastinal contours appear normal. Heart size is normal. Bones and chest wall: No suspicious bony lesions. Overlying soft tissues appear unremarkable. IMPRESSION: No acute cardiopulmonary abnormality is seen. Source of suspected sepsis is not seen. Dictated by: Dwayne Cameron M.D. on 05/18/2025 at 16:38 Approved by: Dwayne Cameron M.D. on 05/18/2025 at 16:39
--- NOTE | 2025-05-18 15:53 | EKG_ITS ---
[address] [address] Test Date: 2025-05-18 Pat Name: Camryn Maloney Department: Room: Gender: Female [employer]: AJIT : 1945 Requested By: Order Number: [id number] Reading MD: Huy Camara MD Measurements Intervals [place] Rate: 108 P: 53 MT: 170 QRS: 30 QRSD: 96 T: 40 QT: 332 QTc: 444 Interpretive Statements Sinus tachycardia Electronically Signed On 05-18-2025 17:12:39 PDT by Huy Camara MD
[2025-05-18 16:00] LABS: Add Manual Diff / Slide Review NO; Basophils Absolute Auto 0 /uL (0-100); Basophils Percent Auto 0.3 % (0-2); Eosinophils Absolute Auto 0 /uL (0-450); Eosinophils Percent Auto 0.2 % (2-4); Hematocrit 37.3 % (36-46); Hemoglobin 12.5 g/dL (12.0-16.0); Lymphocytes Absolute Auto 300 /uL (1100-4500); Lymphocytes Percent Auto 2.3 % (25-40); Mean Corpuscular HGB Conc 33.5 % (30-36); Mean Corpuscular Hemoglobin 33.1 PG (26-34); Mean Corpuscular Volume 98.8 fL (80-100); Monocytes Absolute Auto 1000 /uL (0-900); Monocytes Percent Auto 8.7 % (3-14); Neutrophils Absolute Auto 9900 /uL (1500-7000); Neutrophils Percent Auto 88.5 % (50-75); Platelet Count 159 X10^3/uL (150-400); Red Blood Cell Count 3.78 X10^6/uL (4.0-5.2); Red Cell Distribution Width 12.4 % (11.6-14.8); White Blood Cell Count 11.1 X10^3/uL (4.5-11.0)
[2025-05-18 16:09] LABS: INR 1.2 (0.9-1.3); Prothrombin Time 13.6 SECONDS (9.4-12.5)
[2025-05-18 16:11] LABS: PTT Partial Thromboplastin Tim 28 SECONDS (25.1-36.5)
[2025-05-18] MEDS: SODIUM CHLORIDE 0.9% 1,000 ML 1000 ML IV (16:11)
[2025-05-18 16:13] LABS: Alanine Aminotransferase 27 IU/L (<35); Albumin 4.4 g/dL (3.5-5.0); Albumin Globulin Ratio 1.8 (1.0-2.8); Alkaline Phosphatase 96 U/L (38-126); Aspartate Aminotransferase 40 IU/L (14-36); BUN Creatinine Ratio 24.7 (6-22); Bilirubin Total 0.8 mg/dL (0.2-1.3); Blood Urea Nitrogen 24 mg/dL (7-17); Calcium 9.1 mg/dL (8.4-10.2); Carbon Dioxide 22 mmol/L (22-32); Chloride 100 mmol/L (98-107); Estimated Glomerular Filt Rate 59 mL/min (>60); Globulin 2.5 g/dL (1.7-4.1); Glucose 120 mg/dL (70-99); HEMOLYSIS < 15 (0-50); Lactate (Lactic Acid) 0.8 mmol/L (0.7-2.1); Lipase 105 U/L (23-300); Potassium 4.3 mmol/L (3.4-5.1); Sodium 132 mmol/L (137-145); Total Protein 6.9 g/dL (6.3-8.2)
[2025-05-18] MEDS: cefTRIAXone 2,000 MG in SODIUM CHLORIDE 0.9% 100 ML 200 MG IV (16:27)
[2025-05-18 16:30] LABS: Procalcitonin 0.281 ng/mL (<0.5)
--- NOTE | 2025-05-18 16:31 | ED.SEPSIS ---
HPI - Sepsis General Chief Complaint: Fever Mode of arrival: Wheelchair Source: patient Limitations: no limitations Evaluation Sepsis Screen: Possible Sepsis Risk Sepsis Infection Criteria Present: Suspected New Infection Narrative: 80-year-old female history of hypertension, dyslipidemia, CKD, osteoporosis, hypothyroidism, hair loss, essential tremor, presents with fever, chills, bodyaches, decreased urination, despite increased oral intake yesterday woke up with a fever today again fever 103. Patient denies cough, runny nose, sore throat, sick contacts, nausea, vomiting, diarrhea. Patient denies chest pain, shortness of breath, dyspnea on exertion, leg pain, leg swelling. Other than what is stated 14 point review of system is negative. 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) Asthma Bruises easily Chronic diarrhea DDD (degenerative disc disease) Dupuytren's contracture of right hand Endometriosis Essential hypertension (11/20/11) Essential tremor GERD (gastroesophageal reflux disease) Gout Greater trochanteric bursitis of left hip Herniated nucleus pulposus, L4-5 History of environmental allergies Hypertension Hyponatremia IBS (irritable bowel syndrome) Influenza A Lobular carcinoma in situ (LCIS) of right breast Lumbosacral spondylosis with radiculopathy Osteoarthritis Osteoporosis Otitis externa Right foot drop Sacral dysfunction Seasonal allergic reaction Thyroid disease Vertigo Surgical History Dupuytrens contracture (~2009) History of arthroplasty (~2009) History of bilateral salpingo-oophorectomy (BSO) (~1975) History of esophagogastroduodenoscopy (EGD) History of hysterectomy History of lumbar laminectomy History of removal of cyst History of spinal fusion (~1992) History of total right hip arthroplasty S/P BSO (bilateral salpingo-oophorectomy) (~1981) Status post breast biopsy (~1993) Status post breast reduction (~2012) Status post colonoscopy (~2012) Status post hysterectomy (~1975) Family History Father Asthma Congestive heart failure Mother Hyperlipidemia Kidney disease Social History household members: spouse Smoking Status: Former smoker alcohol intake: current Smoking Status: Former smoker alcohol intake frequency: 0-2 drinks per day Exam Narrative Exam Narrative: GENERAL: [80] year old patient appears stated age. Well-developed patient, in mild distress. HEAD: Atraumatic. Normocephalic. EYES: Pupils equal round and reactive. Extraocular motions intact. No scleral icterus. No injection or drainage. ENT: Nose without bleeding, purulent drainage. Throat without erythema, tonsillar hypertrophy or exudate. Airway patent. NECK: Trachea midline. Non tender CARDIOVASCULAR: Tachycardic Regular rate and rhythm without murmurs, gallops, or rubs. RESPIRATORY: Clear to auscultation. Breath sounds equal bilaterally. No wheezes, rales, or rhonchi. GASTROINTESTINAL: Abdomen soft, non-tender, nondistended. EXTREMITIES: No edema or joint tenderness. BACK: Nontender without deformity or crepitance. No flank tenderness. NEURO: AOx3. GCS 15 nonfocal neuro exam SKIN: No rash or erythema of visible areas Initial Vital Signs Initial Vital Signs: Vital Signs Pulse Oximetry 96 05/18/25 15:40 Course Orders Ordered: Acetaminophen (Acetaminophen 325 Mg Tablet) 650 mg PO Q6H PRN PRN Reason: Fever/Mild Pain (1-3) Hydrocodone Bitart/Acetaminophen (Hydrocodone/Acet 5/325 Tablet) 1 tab PO Q6H PRN PRN Reason: pain Last Admin: 05/19/25 00:54 Dose: 1 tab Documented By: Admin: 05/18/25 18:30 Dose: 1 tab Documented By: ALISHA Enoxaparin Sodium (Enoxaparin 40 Mg/0.4 Ml Syringe) 40 mg SUBCUT DAILY HINA Flecainide Acetate (Flecainide 100 Mg Tablet) 50 mg PO Q12H HINA Last Admin: 05/18/25 20:46 Dose: 50 mg Documented By: CT Hydromorphone HCl (Hydromorphone 0.5 Mg Inj) 0.5 mg IV Q2H PRN PRN Reason: Pain, Severe (7-10) Last Admin: 05/19/25 04:13 Dose: 0.5 mg Documented By: Admin: 05/18/25 18:36 Dose: 0.5 mg Documented By: ALISHA Dextrose/Sodium Chloride (Dextrose 5%-0.45% Ns) 1,000 mls @ 100 mls/hr IV CONT HINA Last Admin: 05/19/25 04:13 Dose: 100 mls/hr Documented By: Infusion: 05/19/25 04:13 Dose: Infused Documented By: Admin: 05/18/25 18:32 Dose: 100 mls/hr Documented By: ALISHA Ceftriaxone Sodium 2,000 mg/ (Sodium Chloride) 100 mls @ 200 mls/hr IV Q24H [facility] Methocarbamol (Methocarbamol 500 Mg Tablet) 750 mg PO TID [facility] Last Admin: 05/18/25 20:45 Dose: 750 mg Documented By: CT Naloxone HCl (Naloxone 0.4 Mg/Ml Vial) 0.2 mg IV Q2MIN PRN PRN Reason: Opiate Reversal Diltiazem Hcl 90 Mg Capsule,Extended Release 12 Hr 90 mg PO BEDTIME [facility] Last Admin: 05/18/25 20:48 Dose: 90 mg Documented By: CT Ondansetron HCl (Ondansetron 4 Mg Odt) 4 mg PO Q8H PRN PRN Reason: Nausea And Vomiting Last Admin: 05/19/25 06:38 Dose: 4 mg Documented By: CT Pravastatin Sodium (Pravastatin 20 Mg Tablet) 10 mg PO BEDTIME [facility] Last Admin: 05/18/25 20:46 Dose: 10 mg Documented By: CT Sennosides (Sennosides 8.6 Mg Tablet) 17.2 mg PO BEDTIME [facility] Last Admin: 05/18/25 20:45 Dose: 17.2 mg Documented By: CT Thyroid (Thyroid, Pork 30 Mg Tablet) 60 mg PO 0600 [facility] Last Admin: 05/19/25 06:38 Dose: 60 mg Documented By: CT Discontinued Medications Sodium Chloride (Normal Saline 0.9%) 1,000 mls @ 1,000 mls/hr IV BOLUS ONE Stop: 05/18/25 16:52 Last Infusion: 05/18/25 17:15 Dose: Infused Documented By: Admin: 05/18/25 16:11 Dose: 1,000 mls/hr Documented By: MATEUSZ Ceftriaxone Sodium 2,000 mg/ (Sodium Chloride) 100 mls @ 200 mls/hr IV NOW ONE Stop: 05/18/25 16:10 Last Infusion: 05/18/25 17:15 Dose: Infused Documented By: Admin: 05/18/25 16:27 Dose: 200 mls/hr Documented By: MATEUSZ Ondansetron HCl (Ondansetron 4 Mg/2 Ml Inj) 4 mg IV NOW PRN PRN Reason: Nausea And Vomiting Ondansetron HCl (Ondansetron 4 Mg Odt) 4 mg PO NOW PRN PRN Reason: Nausea And Vomiting Vital Signs Vital signs: Vital Signs - 8 hr 05/18/25 15:45 Temperature 103.2 F H Pulse Rate 116 H Respiratory Rate 18 Blood Pressure 169/68 H Pulse Oximetry 96 Oxygen Delivery Method Room Air Sepsis Evaluation (ED) Triage Screening Sepsis Screen: Possible Sepsis Risk Level 1 - Infection Sepsis Infection Criteria Present: Suspected New Infection Response It is my opinion that his patient have a likely infectious etiology for meeting sepsis criteria: Does Fluid calculation based on 30 mL/kg within 1hr of criteria: ABW used (fluid resucitation) Antibiotics initiated within 1 hr of Sepis dx: Yes (rocephin and zosyn) Tissue Perfusion Reassessed within 6 hrs of infusion start time: Yes (Patient was admitted to hospitalist service.) Date of Tissue Perfusion Reassessment completed: 05/19/25 Time Tissue Perfusion Reassessment completed: 08:33 MDM - Sepsis Lab Data 05/19/25 04:50 05/19/25 04:50 Labs: Lab Results 05/18/25 05/18/25 Range/Units 15:48 15:51 WBC 11.1 H (4.5-11.0) X10^3/uL RBC 3.78 L (4.0-5.2) X10^6/uL Hgb 12.5 (12.0-16.0) g/dL Hct 37.3 (36-46) % MCV 98.8 (80-100) fL MCH 33.1 (26-34) PG MCHC 33.5 (30-36) % RDW 12.4 (11.6-14.8) % Plt Count 159 (150-400) X10^3/uL Neut % (Auto) 88.5 H (50-75) % Lymph % (Auto) 2.3 L (25-40) % Weber % (Auto) 8.7 (3-14) % Eos % (Auto) 0.2 L (2-4) % Baso % (Auto) 0.3 (0-2) % Neut # (Auto) 9900 H (9065-6358) /uL Lymph # (Auto) 300 L (2108-2011) /uL Weber # (Auto) 1000 H (0-900) /uL Eos # (Auto) 0 (0-450) /uL Baso # (Auto) 0 (0-100) /uL PT 13.6 H (9.4-12.5) SECONDS INR 1.2 (0.9-1.3) APTT 28 (25.1-36.5) SECONDS Sodium 132 L (137-145) mmol/L Potassium 4.3 (3.4-5.1) mmol/L Chloride 100 (98-107) mmol/L Carbon Dioxide 22 (22-32) mmol/L BUN 24 H (7-17) mg/dL Creatinine 0.97 (0.52-1.04) mg/dL Estimated GFR 59 L (>60) mL/min BUN/Creatinine Ratio 24.7 H (6-22) Glucose 120 H (70-99) mg/dL Lactate 0.8 (0.7-2.1) mmol/L Calcium 9.1 (8.4-10.2) mg/dL Total Bilirubin 0.8 (0.2-1.3) mg/dL AST 40 H (14-36) IU/L ALT 27 (<35) IU/L Alkaline Phosphatase 96 (38-126) U/L Total Protein 6.9 (6.3-8.2) g/dL Albumin 4.4 (3.5-5.0) g/dL Globulin 2.5 (1.7-4.1) g/dL Albumin/Globulin Ratio 1.8 (1.0-2.8) Lipase 105 (23-300) U/L Procalcitonin 0.281 (<0.5) ng/mL A.calcoaceticus-baumannii cmplx PCR Not detected (Not Detect) Bacteroides fragilis Not detected (Not Detect) Dorie albicans (PCR) Not detected (Not Detect) Dorie auris (PCR) Not detected (Not Detect) C. glabrata (PCR) Not detected (Not Detect) C. krusei (PCR) Not detected (Not Detect) C. parapsilosis (PCR) Not detected (Not Detect) C. tropicalis (PCR) Not detected (Not Detect) SARS-CoV-2 (PCR) Negative (Negative) C. neoform/gattii (PCR) Not detected (Not Detect) Enterobacterales (PCR) Detected (Not Detect) E. cloacae complex PCR Not detected (Not Detect) Enterococc faecalis PCR Not detected (Not Detect) Enterococc faecium PCR Not detected (Not Detect) E. coli (PCR) Detected (Not Detect) H. influenzae (PCR) Not detected (Not Detect) Influenza A (RT-PCR) Flu a negative (NEGATIVE) Influenza B (RT-PCR) Flu b negative (NEGATIVE) Klebsiella aerogenes (PCR) Not detected (Not Detect) Klebsiella oxytoca PCR Not detected (Not Detect) Klebsiella pneumoniae Not detected (Not Detect) List. monocytogenes PCR Not detected (Not Detect) N. meningitidis (PCR) Not detected (Not Detect) Proteus species (PCR) Not detected (Not Detect) RSV (PCR) Negative (Negative) Salmonella spp. (PCR) Not detected (Not Detect) Serratia marcescens PCR Not detected (Not Detect) Staphylococcus sp PCR Not detected (Not Detect) Staph aureus (PCR) Not detected (Not Detect) mecA/C & MREJ Resist Gene Not applicable (Not Detect) mecA/C-Methicil Resis Gene Not applicable (Not Detect) mcr-1 Colistin Res Gene PCR Not detected (Not Detect) Staph epidermidis (PCR) Not detected (Not Detect) Staph lugdunensis PCR Not detected (Not Detect) S. maltophilia (PCR) Not detected (Not Detect) Streptococcus sp PCR Not detected (Not Detect) Group A Strep (PCR) Not detected (Not Detect) Strep agalactiae (PCR) Not detected (Not Detect) Strep pneumoniae (PCR) Not detected (Not Detect) P. aeruginosa (PCR) Not detected (Not Detect) Juliana/B-Vanco Res Genes Not applicable (Not Detect) blaIMP Car res Gene PCR Not detected (Not Detect) KPC-Carbap Res Gene PCR Not detected (Not Detect) blaNDM Car Res Gene PCR Not detected (Not Detect) OXA-48 Carbapenem Resis Gene (PCR) Not detected (Not Detect) blaVIM Car Res Gene PCR Not detected (Not Detect) CTX-M Gene Resistance (PCR) Not detected (Not Detect) Imaging Data Chest x-ray: Radiologist's Impression: atient: Camryn Maloney MR#: [id number] : 1945 Acct:[id number] Age/Sex: 80 / F Date of Service: 05/18/25 Loc: ED Accession Number: [id number] Procedure: XR chest 1V Ordering Provider: Huy Cunningham D.O. PROCEDURE: XR CHEST 1V INDICATIONS: suspected sepsis TECHNIQUE: One view of the chest was acquired. COMPARISON: formerly [facility], XR CHEST 1V, 03/18/2024, 15:44. FINDINGS: Surgical changes and devices: None. Lungs and pleura: Lungs are clear. No pleural effusions or pneumothorax. Mediastinum: Mediastinal contours appear normal. Heart size is normal. Bones and chest wall: No suspicious bony lesions. Overlying soft tissues appear unremarkable. IMPRESSION: No acute cardiopulmonary abnormality is seen. Source of suspected sepsis is not seen. Dictated by: Dwayne Cameron M.D. on 05/18/2025 at 16:38 Approved by: Dwayne Cameron M.D. on 05/18/2025 at 16:39 MDM Narrative Medical decision making narrative: All lab work, vital signs, nurse triage note, medication list, previous ER visits and all imaging studies reviewed. CT scan abdomen and pelvis showed acute pyelonephritis patient given fluids and Rocephin 2 g IV. Differential diagnosis includes sepsis UTI pneumonia COVID flu RSV. Case discussed with Dr. Menchaca who has graciously accepted patient for inpatient admission. Discharge Plan Departure Patient Disposition: Admitted As Inpatient Clinical Impression: Acute pyelonephritis Admit Date/Time: 05/18/25 17:18 Admit Provider: Sushil Menchaca V
--- NOTE | 2025-05-18 16:35 | DI.CT.S_ITS ---
PROCEDURE: CT ABDOMEN PELVIS W CON INDICATIONS: UTI/ Fever/ kidney infection TECHNIQUE: After the administration of intravenous contrast, axial sections acquired from the lung bases to the pubic symphysis. Coronal and sagittal reformats were performed. For radiation dose reduction, the following was used: automated exposure control, adjustment of mA and/or kV according to patient size. COMPARISON: None. FINDINGS: Image quality: Diagnostic. Lower Chest: A sessile 6 mm pulmonary nodule is present at the right hemidiaphragm (series 3/image 60). A partially characterized 3 mm pulmonary nodule is present within the lateral aspect of the right lower lobe. ABDOMEN: Liver: No solid mass. Gallbladder: No radiopaque gallstones or wall thickening. Biliary ducts: No biliary dilation. Pancreas: No ductal dilation. Spleen: Size is within normal limits. A small splenule is present adjacent to the spleen. Adrenal Glands: No adrenal nodules. Kidneys and Ureters: Striated nephrograms are noted within the upper pole of the left kidney. The right kidney demonstrates normal size and enhancement. No hydronephrosis or nephrolithiasis. There is hyperemia of the left ureter. No ureterolithiasis. There is moderate left perinephric fat stranding. Stomach and Bowel: Normal colonic caliber, without significant wall thickening. The appendix is not visualized; however there is no discrete right lower quadrant fluid or fat stranding to suggest acute appendicitis. There are scattered sigmoid diverticula. No evidence for diverticulitis. Peritoneum: No abnormal intraperitoneal fluid. No free air. Ventral Wall: No significant ventral hernia. Abdominal Nodes: No retroperitoneal or mesenteric adenopathy by size criteria. Vessels: There are scattered atheromatous calcifications throughout the aorta and iliac arteries bilaterally. PELVIS: Pelvic Organs: Unremarkable. Bladder: No bladder wall thickening, accounting for underdistention. Pelvic Nodes: No enlarged lymph nodes. Miscellaneous: There are small bilateral fat containing inguinal hernias. Bones: No aggressive osseous abnormality. IMPRESSION: 1. Striated nephrograms within the upper pole of the left kidney in addition to hyperemia of the left ureteral wall suspicious for acute pyelonephritis. No hydronephrosis, nephrolithiasis, or ureterolithiasis. 2. The appendix is not visualized; however there are no ancillary findings to suggest acute appendicitis. 3. Diverticulosis. No acute diverticulitis. Dictated by: Gardenia Jerry M.D. on 05/18/2025 at 17:09 Approved by: Gardenia Jerry M.D. on 05/18/2025 at 17:15
--- NOTE | 2025-05-18 17:16 | PM.HP.IH.1 ---
History of Present Illness History of Present Illness Date Patient Seen: 05/18/25 Time Patient Seen: 17:55 Date of Onset of Symptoms: 05/18/25 Chief complaint: fever Narrative: 80-year-old woman with recent history of back pain due to a herniated disc, on opioids with concomitant constipation, developed fevers, chills, body aches, and decreased urination the past 1-2 days. She had a fever to 103? F. She was directed to the urgent care clinic and subsequently to the emergency department for evaluation, and found to have an abnormal urinalysis and CT findings consistent with left pyelonephritis. Due to fever, pain and weakness she is admitted for further management and evaluation. 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) Asthma Bruises easily Chronic diarrhea DDD (degenerative disc disease) Dupuytren's contracture of right hand Endometriosis Essential hypertension (11/20/11) Essential tremor GERD (gastroesophageal reflux disease) Gout Greater trochanteric bursitis of left hip Herniated nucleus pulposus, L4-5 History of environmental allergies Hypertension Hyponatremia IBS (irritable bowel syndrome) Influenza A Lobular carcinoma in situ (LCIS) of right breast Lumbosacral spondylosis with radiculopathy Osteoarthritis Osteoporosis Otitis externa Right foot drop Sacral dysfunction Seasonal allergic reaction Thyroid disease Vertigo Surgical History Dupuytrens contracture (~2009) History of arthroplasty (~2009) History of bilateral salpingo-oophorectomy (BSO) (~1975) History of esophagogastroduodenoscopy (EGD) History of hysterectomy History of lumbar laminectomy History of removal of cyst History of spinal fusion (~1992) History of total right hip arthroplasty S/P BSO (bilateral salpingo-oophorectomy) (~1981) Status post breast biopsy (~1993) Status post breast reduction (~2012) Status post colonoscopy (~2012) Status post hysterectomy (~1975) Family History Father Asthma Congestive heart failure Mother Hyperlipidemia Kidney disease Social History household members: spouse Smoking Status: Former smoker alcohol intake: current Meds Home Medications and Allergies Home Medications ?Medication ?Instructions ?Recorded ?Confirmed ?Type calcium 400 mg 1 tab PO BEDTIME 02/15/25 05/09/25 History (carbonate)-magnesium 167 mg (oxide)-D3 133 unit tablet flecainide 50 mg tablet 50 mg PO Q12H #60 tabs 03/20/25 05/09/25 Rx pravastatin 10 mg tablet 10 mg PO DAILY #90 tabs 04/17/25 05/09/25 Rx ondansetron 4 mg disintegrating 4 mg PO Q8H PRN nausea and 05/02/25 05/09/25 Rx tablet vomiting #10 tabs diltiazem HCl 90 mg 90 mg PO BEDTIME 05/09/25 History capsule,extended release 12 hr hydrocodone 5 mg-acetaminophen 325 1 tab PO Q6H PRN pain #120 tabs 05/09/25 05/09/25 Rx mg tablet thyroid (pork) 60 mg tablet 60 mg PO DAILY #90 tabs 05/15/25 Rx methocarbamol 750 mg tablet 750 mg PO TID #84 tabs 05/16/25 Rx nitrofurantoin macrocrystal 100 mg 100 mg PO BID #10 caps 05/18/25 Rx capsule Allergies Allergy/AdvReac Type Severity Reaction Status Date / Time lisinopril Allergy Severe ANAPHYLAXIS Verified 05/18/25 15:45 amoxicillin Allergy Intermediate HIVES Verified 05/18/25 15:45 adhesive Allergy Mild RASH Verified 05/18/25 15:45 latex Allergy Mild RASH Verified 05/09/25 06:55 Sulfa (Sulfonamide Allergy Mild RASH Verified 05/18/25 15:45 Antibiotics) clavulanic acid AdvReac Mild DIARRHEA Verified 05/09/25 06:55 codeine AdvReac Mild VOMITING Verified 05/18/25 15:45 morphine AdvReac Mild VOMITING Verified 05/18/25 15:45 oxycodone AdvReac Mild VOMITING Verified 05/09/25 06:55 Review of Systems Review of Systems ROS: Yes All systems reviewed with the patient and are negative except as otherwise documented Exam Vital Signs (past 8 hours): - 05/18/25 15:40 05/18/25 15:41 05/18/25 15:41 Temperature Pulse Rate 116 H Respiratory Rate Blood Pressure 169/68 H Pulse Oximetry 96 97 Oxygen Delivery Method 05/18/25 15:45 05/18/25 16:00 05/18/25 16:00 Temperature 103.2 F H Pulse Rate 116 H 107 H Respiratory Rate 18 19 Blood Pressure 169/68 H 138/62 Pulse Oximetry 96 96 Oxygen Delivery Method Room Air 05/18/25 16:30 05/18/25 16:32 05/18/25 16:32 Temperature Pulse Rate 100 H 99 H Respiratory Rate 30 H 27 H Blood Pressure 159/70 H Pulse Oximetry 97 97 Oxygen Delivery Method 05/18/25 16:56 05/18/25 16:56 05/18/25 17:00 Temperature Pulse Rate 95 H 100 H Respiratory Rate 12 24 Blood Pressure 156/69 H Pulse Oximetry 97 97 Oxygen Delivery Method 05/18/25 17:00 Temperature Pulse Rate Respiratory Rate Blood Pressure 178/103 H Pulse Oximetry Oxygen Delivery Method Oxygen Delivery Method Room Air Narrative Exam Narrative: GENERAL: This is a well-nourished, well-developed patient, in no apparent distress. HEAD: Atraumatic. Normocephalic. No temporal or scalp tenderness. EYES: Pupils equal round and reactive. Extraocular motions intact. No scleral icterus. No injection or drainage. ENT: Mucous membranes pink and moist. NECK: Trachea midline. No JVD, bruits or lymphadenopathy. Supple, nontender, no meningeal signs. CARDIOVASCULAR: Regular rate and rhythm without murmurs, gallops, or rubs. RESPIRATORY: Clear to auscultation. GASTROINTESTINAL: Abdomen soft, non-tender, nondistended. EXTREMITIES: No clubbing, cyanosis, or edema. BACK: Nontender without deformity or crepitance. No flank tenderness. NEUROLOGIC: Alert, oriented, speech fluent, full upper and lower motor strength, no focal deficits evident. DERMATOLOGIC: No rashes or skin lesions. Objective ECG Impression: Sinus tachycardia at 108bpm, no ischemic changes Imaging CT abdomen-pelvis 05/18/2025:: Radiologist's impression: 1. Striated nephrograms within the upper pole of the left kidney in addition to hyperemia of the left ureteral wall suspicious for acute pyelonephritis. No hydronephrosis, nephrolithiasis, or ureterolithiasis. 2. The appendix is not visualized; however there are no ancillary findings to suggest acute appendicitis. 3. Diverticulosis. No acute diverticulitis. Labs 05/18/25 15:48 05/18/25 15:48 Labs: Laboratory Results - last 24 hr 05/18/25 15:48 WBC 11.1 H RBC 3.78 L Hgb 12.5 Hct 37.3 MCV 98.8 MCH 33.1 MCHC 33.5 RDW 12.4 Plt Count 159 Neut % (Auto) 88.5 H Lymph % (Auto) 2.3 L Saline % (Auto) 8.7 Eos % (Auto) 0.2 L Baso % (Auto) 0.3 Neut # (Auto) 9900 H Lymph # (Auto) 300 L Saline # (Auto) 1000 H Eos # (Auto) 0 Baso # (Auto) 0 PT 13.6 H INR 1.2 APTT 28 Sodium 132 L Potassium 4.3 Chloride 100 Carbon Dioxide 22 BUN 24 H Creatinine 0.97 Estimated GFR 59 L BUN/Creatinine Ratio 24.7 H Glucose 120 H Lactate 0.8 Calcium 9.1 Total Bilirubin 0.8 AST 40 H ALT 27 Alkaline Phosphatase 96 Total Protein 6.9 Albumin 4.4 Globulin 2.5 Albumin/Globulin Ratio 1.8 Lipase 105 Procalcitonin 0.281 Assessment & Plan Assessment & Plan narrative: 1. Left pyelonephritis. Admit to observation, administer IV ceftriaxone, and follow cultures. 2. Sepsis with leukocytosis, tachycardia and volume depletion. 3. Lumbar degenerative disc disease with recent herniated disc. Continue current analgesics. 4. Paroxysmal atrial fibrillation. Currently in sinus rhythm. Continue routine flecainide and diltiazem. Monitor on telemetry. 5. Hypertension. Monitor on therapy. 6. Hyperlipidemia. Continue routine statin. 7. Hypothyroidism. Continue routine thyroid replacement. DVT prophylaxis: Lovenox Code status: Full code. Addressed on admission. Her is her surrogate decision maker. Disposition: Admit to observation. Possible discharge home tomorrow if doing well. Quality MIPS - Admit I confirm the patient?s Advance Care Plan is present, Code status is documented, Surrogate decision maker is in patient?s record [If Yes, STOP here]: Yes MIPS - Meds 'Current medications' to include all prescriptions, [id number] products, herbals, cannabis/cannabidiol products, and vitamin/mineral/dietary (nutritional) supplements. I have utilized all available resources to obtain, update, or review the patient?s current medications. [If Yes, STOP here]: Yes [facility] [employer] Animal Scientist Document charge(s): No Charge Codes Initial inpatient/observation care: [id number]
--- NOTE | 2025-05-18 17:23 | PC.NURSE ---
patient ambulated to restroom, steady gait.
[2025-05-18 17:46] LABS: Influenza A - CEPHEID Flu A NEGATIVE (NEGATIVE); Influenza B - CEPHEID Flu B NEGATIVE (NEGATIVE); Respiratory Syncytial Virus Negative (Negative)
[2025-05-18 17:48] LABS: COVID-19 CEPHEID 4-PLEX PCR Negative (Negative)
[2025-05-18] MEDS: HYDROCODONE/ACET 5/325 TABLET 1 TAB PO (18:30)
[2025-05-18] MEDS: DEXTROSE 5%-0.45% NS 1,000 ML 100 ML IV (18:32)
[2025-05-18] MEDS: HYDROMORPHONE 0.5 MG INJ IV (18:36)
--- NOTE | 2025-05-18 18:54 | PC.NURSE ---
Patient is A&OX4, SBP slightly elevated upon arrival to room 225 at 1750. Patient reports pain 7/10 and feeling chilled shivering. Admission assessment completed. IVF D5 1/2NS hung, telemetry placed, oriented to room and patient settled given hydrocodone PRn and hydromorphone 0.5 mg IV with good effect. Tremors slow and patient SBp improved to 140/55.
[2025-05-18] MEDS: SENNOSIDES 8.6 MG TABLET 17.2 MG PO (20:45)
[2025-05-18] MEDS: methocarbamoL 500 MG TABLET 750 MG PO (20:45)
[2025-05-18] MEDS: FLECAINIDE 100 MG TABLET 50 MG PO (20:46)
[2025-05-18] MEDS: PRAVASTATIN 20 MG TABLET 10 MG PO (20:46)
[2025-05-18] MEDS: DILTIAZEM 90 EACH PO (20:48)
[2025-05-19] MEDS: HYDROCODONE/ACET 5/325 TABLET 1 TAB PO ×4 (00:54→23:41)
[2025-05-19 01:00] VITALS: BP 134/49; PULSE 92; RESP 18; TEMP 36.2; O2SAT 97
[2025-05-19 03:06] LABS: Acinetobacter calcoa-baumannii Not Detected (Not Detect); Bacteroides fragilis Not Detected (Not Detect); CTX-M Resistance Not Detected (Not Detect); Candida albicans Not Detected (Not Detect); Candida auris Not Detected (Not Detect); Candida glabrata Not Detected (Not Detect); Candida krusei Not Detected (Not Detect); Candida parapsilosis Not Detected (Not Detect); Candida tropicalis Not Detected (Not Detect); Cryptococcus neoformans/gatti Not Detected (Not Detect); Enterobacter cloacae complex Not Detected (Not Detect); Enterobacterales Detected (Not Detect); Enterococcus faecalis Not Detected (Not Detect); Enterococcus faecium Not Detected (Not Detect); Haemophilus influenzae Not Detected (Not Detect); IMP Resistance Not Detected (Not Detect); KPC Resistance Not Detected (Not Detect); Klebsiella aerogenes Not Detected (Not Detect); Listeria monocytogenes Not Detected (Not Detect); NDM Resistance Not Detected (Not Detect); Neisseria meningitidis Not Detected (Not Detect); OXA-48-like Resistance Not Detected (Not Detect); Proteus species Not Detected (Not Detect); Pseudomonas aeruginosa Not Detected (Not Detect); Salmonella species Not Detected (Not Detect); Serratia marcescens Not Detected (Not Detect); Staphylococcus epidermidis Not Detected (Not Detect); Staphylococcus lugdunensis Not Detected (Not Detect); Staphylococcus species Not Detected (Not Detect); Stenotrophomonas maltophilia Not Detected (Not Detect); Streptococcus agalactiae (Gr B Not Detected (Not Detect); Streptococcus pneumonia Not Detected (Not Detect); Streptococcus pyogenes (Gr A) Not Detected (Not Detect); Streptococcus species Not Detected (Not Detect); VIM Resistance Not Detected (Not Detect); mcr-1 Resistance Not Detected (Not Detect)
[2025-05-19] MEDS: DEXTROSE 5%-0.45% NS 1,000 ML 100 ML IV ×2 (04:13→15:41)
[2025-05-19] MEDS: HYDROMORPHONE 0.5 MG INJ IV (04:13)
[2025-05-19 05:14] LABS: Add Manual Diff / Slide Review NO; Basophils Absolute Auto 0 /uL (0-100); Basophils Percent Auto 0.4 % (0-2); Eosinophils Absolute Auto 0 /uL (0-450); Eosinophils Percent Auto 0.3 % (2-4); Hematocrit 36.7 % (36-46); Hemoglobin 12.4 g/dL (12.0-16.0); Lymphocytes Absolute Auto 200 /uL (1100-4500); Lymphocytes Percent Auto 2.7 % (25-40); Mean Corpuscular HGB Conc 33.8 % (30-36); Mean Corpuscular Hemoglobin 33.8 PG (26-34); Monocytes Absolute Auto 600 /uL (0-900); Monocytes Percent Auto 6.3 % (3-14); Neutrophils Absolute Auto 8100 /uL (1500-7000); Neutrophils Percent Auto 90.3 % (50-75); Platelet Count 132 X10^3/uL (150-400); Red Blood Cell Count 3.67 X10^6/uL (4.0-5.2); Red Cell Distribution Width 12.2 % (11.6-14.8); White Blood Cell Count 8.9 X10^3/uL (4.5-11.0)
[2025-05-19 05:29] LABS: BUN Creatinine Ratio 18.3 (6-22); Blood Urea Nitrogen 17 mg/dL (7-17); Calcium 9.1 mg/dL (8.4-10.2); Carbon Dioxide 24 mmol/L (22-32); Chloride 102 mmol/L (98-107); Estimated Glomerular Filt Rate > 60 mL/min (>60); Glucose 151 mg/dL (70-99); HEMOLYSIS < 15 (0-50); Potassium 4.2 mmol/L (3.4-5.1); Sodium 135 mmol/L (137-145)
[2025-05-19] MEDS: THYROID, PORK 30 MG TABLET 60 MG PO (06:38)
[2025-05-19] MEDS: ONDANSETRON 4 MG ODT PO ×2 (06:38→18:28)
[2025-05-19 08:00] VITALS: BP 143/56; PULSE 95; RESP 15; TEMP 36.5; O2SAT 97
[2025-05-19] MEDS: FLECAINIDE 100 MG TABLET 50 MG PO ×2 (09:00→20:32)
[2025-05-19] MEDS: ENOXAPARIN 40 MG/0.4 ML SYRINGE SUBCUT (09:01)
[2025-05-19] MEDS: polyethylene glycoL 3350 17 GM POWD.PACK PO (09:58)
[2025-05-19] MEDS: methocarbamoL 500 MG TABLET 750 MG PO ×2 (11:05→20:30)
[2025-05-19 12:00] VITALS: BP 125/49; PULSE 80; RESP 15; TEMP 36.2; O2SAT 98
--- NOTE | 2025-05-19 12:31 | CM.DANOTE ---
Initial DCP Assessment Note Pt is a 80 yo female, resident of [place], admitted for management of acute pyelonephritis. PCP: Bria Diehl Payer: [employer] Reviewed chart, met w/patient who reports she lives independently with spouse who is also indp, patient uses no assistive devices, drives. Patient has distant hx of HH when she had hip surgery. Patient anticipates no needs from this SW team, appreciative for the visit. No barriers identified at this time to patient's safe discharge home w/family to assist as needed. Social work team will plan to follow clinical course closely in case any DC needs or concerns arise. ISABELLA Suaoz Discharge Planning/Care Management CM Discharge Assessment Start: 05/18/25 17:27 Freq: Status: Active Protocol: Document 05/19/25 12:30 MARIELLE (Rec: 05/19/25 12:31 MARIELLE [id number]) Discharge Planning Assessment Assigned Discharge ISABELLA Coffey [employer] Installer DPOA/Assigned Alessandro Maloney, spouse Designee Name Contact Information [phone] Advance Directives? No History Provided By Patient Prior Living House Arrangements Household Members spouse Type of Drives own vehicle transporation used prior to admit Independent with ADL Yes 's Is patient alert and Yes oriented? Comment No needs Barriers to No Discharge Discharge Plan Home Transportation Spouse Arrangement Referrals Initiated None needed
[2025-05-19] MEDS: ACETAMINOPHEN 325 MG TABLET 650 MG PO (15:41)
[2025-05-19 16:00] VITALS: BP 148/62; PULSE 92; RESP 16; TEMP 37.1; O2SAT 97
[2025-05-19] MEDS: cefTRIAXone 2,000 MG in SODIUM CHLORIDE 0.9% 100 ML 200 MG IV (16:00)
--- NOTE | 2025-05-19 18:15 | PM.PN.1 ---
Subjective Subjective Interval history: 80-year-old female with recent on of back pain and constipation who was admitted with left-sided pyelonephritis and Gram-negative bacteremia. Patient underwent CT scan April 30 which revealed small bilateral ground-glass pulmonary nodules. There is colonic diverticulosis without diverticulitis. A small hiatal hernia. There is moderate to severe degenerative changes in the left hip and lumbar spine. Small bilateral fat containing inguinal hernias were noted. Pelvic MRI was done May 07 and revealed moderate degeneration of bilateral SI joints. She is status post total right hip arthroplasty. Mild degenerative changes of the left hip. There is low-grade tear of the right hamstring tendon and low-grade tear of left gluteal minimus. Lumbar spine MRI was done May 07 and revealed L3-L4 new central/right disc extrusion with severe central canal narrowing and moderate to severe right-sided neural foraminal narrowing. She developed constipation and was taking senna which worked but then cause diarrhea. She then stopped the senna developed constipation again. She noticed difficulty with urinary retention yesterday. She subsequently developed fevers, chills, rigors last night She is feeling better overall today. She hopes to go home tomorrow. Exam Vital Signs (past 8 hours): - 05/19/25 12:00 05/19/25 16:00 Temperature 97.2 F L 98.7 F Pulse Rate 80 92 H Respiratory Rate 15 16 Blood Pressure 125/49 L 148/62 H Pulse Oximetry 98 97 Oxygen Flow Rate 0 0 Oxygen Delivery Method Room Air Oxygen Flow Rate 0 Narrative Exam Narrative: GEN: Pleasant elderly female, Alert and oriented x 3, NAD HEENT:NC, Face symmetric CHEST: Respiratory excursions symmetric, CTAB CV: RRR, no M/R/G ABD: Soft, NT/ND, BT present in all 4 quadrants, no organomegaly or masses EXTR: warm, well perfused, no C/C/E SKIN: warm and dry, no rash NEURO: Alert and oriented x 3, nonfocal Objective Labs 05/19/25 04:50 05/19/25 04:50 Labs: Laboratory Results - last 24 hr 05/18/25 05/19/25 15:48 04:50 WBC 8.9 RBC 3.67 L Hgb 12.4 Hct 36.7 MCV 100.0 MCH 33.8 MCHC 33.8 RDW 12.2 Plt Count 132 L Neut % (Auto) 90.3 H Lymph % (Auto) 2.7 L [place] % (Auto) 6.3 Eos % (Auto) 0.3 L Baso % (Auto) 0.4 Neut # (Auto) 8100 H Lymph # (Auto) 200 L [place] # (Auto) 600 Eos # (Auto) 0 Baso # (Auto) 0 Sodium 135 L Potassium 4.2 Chloride 102 Carbon Dioxide 24 BUN 17 Creatinine 0.93 Estimated GFR > 60 BUN/Creatinine Ratio 18.3 Glucose 151 H Calcium 9.1 A.calcoaceticus-baumannii cmplx PCR Not detected Bacteroides fragilis Not detected Dorie albicans (PCR) Not detected Dorie auris (PCR) Not detected C. glabrata (PCR) Not detected C. krusei (PCR) Not detected C. parapsilosis (PCR) Not detected C. tropicalis (PCR) Not detected C. neoform/gattii (PCR) Not detected Enterobacterales (PCR) Detected E. cloacae complex PCR Not detected Enterococc faecalis PCR Not detected Enterococc faecium PCR Not detected E. coli (PCR) Detected H. influenzae (PCR) Not detected Klebsiella aerogenes (PCR) Not detected Klebsiella oxytoca PCR Not detected Klebsiella pneumoniae Not detected List. monocytogenes PCR Not detected N. meningitidis (PCR) Not detected Proteus species (PCR) Not detected Salmonella spp. (PCR) Not detected Serratia marcescens PCR Not detected Staphylococcus sp PCR Not detected Staph aureus (PCR) Not detected mecA/C & MREJ Resist Gene Not applicable mecA/C-Methicil Resis Gene Not applicable mcr-1 Colistin Res Gene PCR Not detected Staph epidermidis (PCR) Not detected Staph lugdunensis PCR Not detected S. maltophilia (PCR) Not detected Streptococcus sp PCR Not detected Group A Strep (PCR) Not detected Strep agalactiae (PCR) Not detected Strep pneumoniae (PCR) Not detected P. 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) Asthma Bruises easily Chronic diarrhea DDD (degenerative disc disease) Dupuytren's contracture of right hand Endometriosis Essential hypertension (11/20/11) Essential tremor GERD (gastroesophageal reflux disease) Gout Greater trochanteric bursitis of left hip Herniated nucleus pulposus, L4-5 History of environmental allergies Hypertension Hyponatremia IBS (irritable bowel syndrome) Influenza A Lobular carcinoma in situ (LCIS) of right breast Lumbosacral spondylosis with radiculopathy Osteoarthritis Osteoporosis Otitis externa Right foot drop Sacral dysfunction Seasonal allergic reaction Thyroid disease Vertigo Surgical History Dupuytrens contracture (~2009) History of arthroplasty (~2009) History of bilateral salpingo-oophorectomy (BSO) (~1975) History of esophagogastroduodenoscopy (EGD) History of hysterectomy History of lumbar laminectomy History of removal of cyst History of spinal fusion (~1992) History of total right hip arthroplasty S/P BSO (bilateral salpingo-oophorectomy) (~1981) Status post breast biopsy (~1993) Status post breast reduction (~2012) Status post colonoscopy (~2012) Status post hysterectomy (~1975) Family History Father Asthma Congestive heart failure Mother Hyperlipidemia Kidney disease Social History household members: spouse Smoking Status: Former smoker alcohol intake: current Assessment & Plan Assessment & Plan narrative: 1. Gram-negative sepsis and left-sided pyelonephritis Continue ceftriaxone. Sepsis physiology improved today. Await sensitivities on the urine and blood cultures. 2. Lumbar DJD with L3/4 severe central canal narrowing and moderate to severe right-sided neural foraminal narrowing She does have a referral to Orthopedic surgery. She is planning outpatient follow-up. 3. Paroxysmal atrial fibrillation She remains in sinus rhythm. Continue flecainide and diltiazem 4. Hypertension Blood pressure is well controlled. 5. Hypothyroidism Continue her usual thyroid replacement 6. Constipation Encouraged MiraLax in addition to senna. 7. Low-grade tear of the right hamstring tendon and left gluteus minimus No current complaints of pain. May benefit from outpatient physical therapy Code status Full Prophylaxis On Lovenox Disposition Possible discharge home tomorrow pending culture results Time-Based Coding :: [TOTAL MINUTES] spent with patient and on the chart (including review of chart, obtaining history, exam, reviewing outside data, placing orders, documenting exam and treatment plan, and counseling patient) on [DATE].
[2025-05-19 20:00] VITALS: BP 147/69; PULSE 78; RESP 18; TEMP 36.4; O2SAT 98
[2025-05-19] MEDS: DILTIAZEM 90 EACH PO (20:30)
[2025-05-19] MEDS: PRAVASTATIN 20 MG TABLET 10 MG PO (20:30)
[2025-05-19] MEDS: SENNOSIDES 8.6 MG TABLET 17.2 MG PO (20:30)
[2025-05-20] VITALS: BP 144/62; PULSE 84; RESP 15; TEMP 36.1; O2SAT 99
[2025-05-20] MEDS: DEXTROSE 5%-0.45% NS 1,000 ML 100 ML IV (02:40)
[2025-05-20 04:00] VITALS: BP 124/61; PULSE 70; RESP 16; TEMP 36; O2SAT 98
[2025-05-20 05:18] LABS: Add Manual Diff / Slide Review NO; Basophils Absolute Auto 0 /uL (0-100); Basophils Percent Auto 0.6 % (0-2); Eosinophils Absolute Auto 100 /uL (0-450); Eosinophils Percent Auto 1.7 % (2-4); Hematocrit 33.3 % (36-46); Hemoglobin 11.3 g/dL (12.0-16.0); Lymphocytes Absolute Auto 300 /uL (1100-4500); Lymphocytes Percent Auto 6.2 % (25-40); Mean Corpuscular Hemoglobin 33.7 PG (26-34); Monocytes Absolute Auto 600 /uL (0-900); Monocytes Percent Auto 12.3 % (3-14); Neutrophils Absolute Auto 4100 /uL (1500-7000); Neutrophils Percent Auto 79.2 % (50-75); Platelet Count 123 X10^3/uL (150-400); Red Blood Cell Count 3.36 X10^6/uL (4.0-5.2); Red Cell Distribution Width 12.4 % (11.6-14.8); White Blood Cell Count 5.2 X10^3/uL (4.5-11.0)
[2025-05-20 05:22] LABS: BUN Creatinine Ratio 11.8 (6-22); Blood Urea Nitrogen 9 mg/dL (7-17); Calcium 9.1 mg/dL (8.4-10.2); Carbon Dioxide 24 mmol/L (22-32); Chloride 107 mmol/L (98-107); Estimated Glomerular Filt Rate > 60 mL/min (>60); Glucose 126 mg/dL (70-99); HEMOLYSIS < 15 (0-50); Potassium 3.8 mmol/L (3.4-5.1); Sodium 138 mmol/L (137-145)
[2025-05-20 08:00] VITALS: BP 138/61; PULSE 75; RESP 15; TEMP 36.1; O2SAT 99
[2025-05-20] MEDS: ENOXAPARIN 40 MG/0.4 ML SYRINGE SUBCUT (08:23)
[2025-05-20] MEDS: FLECAINIDE 100 MG TABLET 50 MG PO (08:25)
[2025-05-20] MEDS: polyethylene glycoL 3350 17 GM POWD.PACK PO (08:26)
[2025-05-20] MEDS: methocarbamoL 500 MG TABLET 750 MG PO (08:26)
--- NOTE | 2025-05-20 11:10 | PC.NURSE ---
Discharge Note Patient A&O, VSS, RA, no complaints of pain/discomfort. Discharge packet reviewed with patient, all questions/concerns addressed. PIV/TELE discontinued. Patient able to dress self and pack all belongings. Patient taken down via wheelchair to POV.
--- NOTE | 2025-05-20 11:12 | CM.DPC ---
DCP Discharge Home Per MD, pt medically stable to d/c home today on PO meds and outpt f/u and no identified barriers to discharge. SW observed pt being taken by w/c off the floor with spouse to d/c home and pt confirms that she is glad to be going home today. TYRESE notified TCM team about pt d/c requesting f/u appointment be scheduled with her PCP Dr. Diehl. ISABELLA Nguyễn
--- NOTE | 2025-05-20 13:55 | P.DS_ITS ---
History of Present Illness History of Present Illness Chief complaint: fever Narrative: Per H&P: 80-year-old woman with recent history of back pain due to a herniated disc, on opioids with concomitant constipation, developed fevers, chills, body aches, and decreased urination the past 1-2 days. She had a fever to 103? F. She was directed to the urgent care clinic and subsequently to the emergency department for evaluation, and found to have an abnormal urinalysis and CT findings consistent with left pyelonephritis. Due to fever, pain and weakness she is admitted for further management and evaluation. Discharge Providers Provider Date of admission: 05/18/25 17:18 Discharge Date: 05/20/25 Primary care physician: Bria Diehl DO Discharge provider: Brooke Kimball MD Summary Hospital Course Discharge Diagnosis: 1. Pansensitive E coli sepsis and left-sided pyelonephritis 2. Lumbar DJD with L3/4 severe central canal narrowing and moderate to severe right-sided neural foraminal narrowing 3. Paroxysmal atrial fibrillation, presently in sinus rhythm 4. Hypertension, chronic, stable 5. Hypothyroidism, chronic, stable 6. Constipation, present on admission 7. Low-grade tear of the right hamstring tendon and left gluteus minimus, present on admission Hospital Course: Patient was admitted with sepsis secondary to E coli left-sided pyelonephritis. She recently developed back pain and was found to have lumbar DJD with L3-L4 severe central canal narrowing and moderate to severe right-sided neural foraminal narrowing. She has had to take pain medications which led to constipation. She had difficulty managing the constipation which subsequently led to some urinary retention. This is likely what led to her UTI and subsequent pyelonephritis and bacteremia with pansensitive E coli. She presented with symptoms and signs of sepsis. She was placed on ceftriaxone. She rapidly improved. Cultures resulted with pansensitive E coli. She remained afebrile for the 24 hours prior to discharge. Although a fluoroquinolone would be the preferred treatment for outpatient therapy, she is on flecainide which would interact with a fluoroquinolone. Therefore, she is being discharged with beta-lactam cephalosporin (cefdinir)at discharge. She is discharged in stable condition Status at Discharge Cognitive/behavioral status at discharge: at baseline, oriented Functional status at discharge: independent ambulation Overall status at discharge: patient is progressing back to baseline Time Spent with Patient Time spent: Less than 30 minutes Exam Vital Signs (past 8 hours): - 05/20/25 08:00 Temperature 97 F L Pulse Rate 75 Respiratory Rate 15 Blood Pressure 138/61 Pulse Oximetry 99 Oxygen Flow Rate 0 Oxygen Delivery Method Room Air Oxygen Flow Rate 0 Narrative Exam Narrative: GEN: Pleasant elderly female, Alert and oriented x 3, NAD HEENT:NC, Face symmetric CHEST: Respiratory excursions symmetric, CTAB CV: RRR, no M/R/G ABD: Soft, NT/ND, BT present in all 4 quadrants, no organomegaly or masses EXTR: warm, well perfused, no C/C/E SKIN: warm and dry, no rash NEURO: Alert and oriented x 3, nonfocal Objective Labs 05/20/25 04:40 05/20/25 04:40 Labs: Laboratory Results - last 24 hr 05/20/25 04:40 WBC 5.2 RBC 3.36 L Hgb 11.3 L Hct 33.3 L MCV 99.0 MCH 33.7 MCHC 34.0 RDW 12.4 Plt Count 123 L Neut % (Auto) 79.2 H Lymph % (Auto) 6.2 L [place] % (Auto) 12.3 Eos % (Auto) 1.7 L Baso % (Auto) 0.6 Neut # (Auto) 4100 Lymph # (Auto) 300 L [place] # (Auto) 600 Eos # (Auto) 100 Baso # (Auto) 0 Sodium 138 Potassium 3.8 Chloride 107 Carbon Dioxide 24 BUN 9 Creatinine 0.76 Estimated GFR > 60 BUN/Creatinine Ratio 11.8 Glucose 126 H Calcium 9.1 PFSH Medical History 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) Asthma Bruises easily Chronic diarrhea DDD (degenerative disc disease) Dupuytren's contracture of right hand Endometriosis Essential hypertension (11/20/11) Essential tremor GERD (gastroesophageal reflux disease) Gout Greater trochanteric bursitis of left hip Herniated nucleus pulposus, L4-5 History of environmental allergies Hypertension Hyponatremia IBS (irritable bowel syndrome) Influenza A Lobular carcinoma in situ (LCIS) of right breast Lumbosacral spondylosis with radiculopathy Osteoarthritis Osteoporosis Otitis externa Right foot drop Sacral dysfunction Seasonal allergic reaction Thyroid disease Vertigo Surgical History Dupuytrens contracture (~2009) History of arthroplasty (~2009) History of bilateral salpingo-oophorectomy (BSO) (~1975) History of esophagogastroduodenoscopy (EGD) History of hysterectomy History of lumbar laminectomy History of removal of cyst History of spinal fusion (~1992) History of total right hip arthroplasty S/P BSO (bilateral salpingo-oophorectomy) (~1981) Status post breast biopsy (~1993) Status post breast reduction (~2012) Status post colonoscopy (~2012) Status post hysterectomy (~1975) Family History Father Asthma Congestive heart failure Mother Hyperlipidemia Kidney disease Social History household members: spouse Smoking Status: Former smoker alcohol intake: current Discharge Plan Discharge Plan Patient Disposition: Home Provider Discharge Comment: You were admitted with pyelonephritis (infection) of the Left kidney and blood stream (bacteremia) due to E coli. You will be discharged on oral antibiotics for 5 additional days. Please ensure you stay hydrated. Follow-up with Orthopedics for your back as planned. Add miralax daily, adjusting between 1/2 capful and a capful twice daily to achieve daily BM w/o the need to strain Return to the ED for: Fevers/chills/sweats Inability to hold down food/fluid/medications Inability to urinate Discharge orders & Medications Prescriptions: New polyethylene glycol 3350 17 gram Powder In Packet 17 g PO DAILY Qty: 30 0RF sennosides [senna] 8.6 mg Tablet 17.2 mg PO BEDTIME Qty: 60 0RF cefdinir 300 mg capsule 300 mg PO BID Qty: 10 0RF Continued flecainide 50 mg tablet 50 mg PO Q12H Qty: 60 2RF pravastatin 10 mg tablet 10 mg PO DAILY Qty: 90 0RF ondansetron 4 mg tablet,disintegrating 4 mg PO Q8H PRN (Reason: nausea and vomiting) Qty: 10 0RF Rx Instructions: Dissolve one tablet under tongue up to every eight hours as needed for nausea and vomiting. thyroid (pork) 60 mg tablet 60 mg PO DAILY Qty: 90 3RF methocarbamol 750 mg tablet 750 mg PO TID Qty: 84 0RF Rx Instructions: Take one tablet by mouth up to three times a day as needed for back pain. calcium carb-mag oxide-vit D3 [id number] mg-mg-unit tablet 1 tab PO BEDTIME diltiazem HCl 90 mg capsule,extended release 12 hr 90 mg PO BEDTIME hydrocodone-acetaminophen 5-325 mg tablet 1 tab PO Q6H PRN (Reason: pain) Qty: 120 0RF Discontinued nitrofurantoin macrocrystal 100 mg capsule 100 mg PO BID Qty: 10 0RF Rx Instructions: must administer with a meal/food Follow up/Referrals: Bria Diehl DO [Primary Care Provider, [facility]] Discharge Health Status Multidrug resistant organism: No MDRO Diet/Activity/Treatments Diet: Diet as Tolerated and Regular Activity: As tolerated Catheter comment: N/A Oxygen: N/A Skin/Wound/Dressing Care Report to your healthcare provider any signs of infection, such as:: chills, fever and night sweats Visit Report/Discharge Packet Instructions: DI for Escherichia Coli (E. Coli) Infection, DI for Kidney Infection, DI for Constipation Stand Alone Forms: Patient Portal/API, Stroke Signs & Symptoms Discharge Data Primary Care Provider: Bria Diehl
== END 2025-05-20 10:30 | disposition home or self-care (01) | DRG 872 ==
LOC: ED 15:57 → AC 17:19
PROVIDERS: Family Medicine; Admitting Provider Internal Medicine; Emergency Provider Family Medicine; PCP Family Medicine; Referring Provider Family Medicine; Visit Provider Internal Medicine
DX: A41.51 Sepsis due to Escherichia coli [E. coli] (principal); N10 Acute pyelonephritis; M51.26 Other intervertebral disc displacement, lumbar region; M51.369 Other intervertebral disc degeneration, lumbar region without mention of lumbar back pain or lower extremity pain; I48.0 Paroxysmal atrial fibrillation; I10 Essential (primary) hypertension; E78.5 Hyperlipidemia, unspecified; E03.9 Hypothyroidism, unspecified; M48.061 Spinal stenosis, lumbar region without neurogenic claudication; K59.00 Constipation, unspecified; S76.811A Strain of other specified muscles, fascia and tendons at thigh level, right thigh, initial encounter; X58.XXXA Exposure to other specified factors, initial encounter; Z87.891 Personal history of nicotine dependence; Z79.890 Hormone replacement therapy
CPT/HCPCS: 0241U; 36415; 71045; 74177; 80048; 80053; 81001; 83605; 83690; 84145; 85025; 85610; 85730; 87040; 87077; 87086; 87154; 87186; 93005; 93010; 96365; 99284; J0696; J1171; J1650

== ENCOUNTER → 2025-06-05 12:31 | Outpatient (CLI) | payer MEDICARE, OTHER, SELFPAY ==
[2025-05-18 18:16] VITALS: BMI 21.9
[2025-06-05 14:23] LABS: Add Manual Diff / Slide Review NO; Hematocrit 36.1 % (36-46); Hemoglobin 12.1 g/dL (12.0-16.0); Lymphocytes Absolute Auto 900 /uL (1100-4500); Mean Corpuscular HGB Conc 33.5 % (30-36); Mean Corpuscular Hemoglobin 32.9 PG (26-34); Mean Corpuscular Volume 98.3 fL (80-100); Platelet Count 229 X10^3/uL (150-400)
[2025-06-05 14:49] LABS: Alanine Aminotransferase 22 IU/L (<35); Albumin 4.8 g/dL (3.5-5.0); Albumin Globulin Ratio 2.3 (1.0-2.8); Alkaline Phosphatase 82 U/L (38-126); Blood Urea Nitrogen 28 mg/dL (7-17); Calcium 10.2 mg/dL (8.4-10.2); Carbon Dioxide 28 mmol/L (22-32); Chloride 102 mmol/L (98-107); Cholesterol 144 mg/dL (140-199); Estimated Glomerular Filt Rate 56 mL/min (>60); Globulin 2.1 g/dL (1.7-4.1); Glucose 95 mg/dL (70-99); HDL Cholesterol 51 mg/dL (40-60); HEMOLYSIS < 15 (0-50); Sodium 137 mmol/L (137-145); Total Protein 6.9 g/dL (6.3-8.2); Triglycerides 141 mg/dL (35-150)
[2025-06-05 14:54] LABS: Potassium 6.0 mmol/L (3.4-5.1)
[2025-06-06 03:08] LABS: CRP, High Sensitivity 1.02 mg/L (0.00-3.00)
== END ==
PROVIDERS: PCP Family Medicine; Referring Provider Family Medicine; Visit Provider Family Medicine
DX: R50.9 Fever, unspecified (principal); N18.31 Chronic kidney disease, stage 3a; M1A.09X0 Idiopathic chronic gout, multiple sites, without tophus (tophi); D53.9 Nutritional anemia, unspecified; E87.1 Hypo-osmolality and hyponatremia; I47.10 Supraventricular tachycardia, unspecified; I49.1 Atrial premature depolarization; I49.3 Ventricular premature depolarization; I10 Essential (primary) hypertension; E03.9 Hypothyroidism, unspecified
CPT/HCPCS: 36415; 80053; 80061; 85025; 85651; 86140

== ENCOUNTER → 2025-06-15 08:14 | Outpatient (CLI) | payer MEDICARE, OTHER, SELFPAY ==
[2025-05-18 18:16] VITALS: BMI 21.9
== END ==
PROVIDERS: PCP Family Medicine; Visit Provider Nurse Practitioner Family
DX: R30.0 Dysuria (principal); N94.9 Unspecified condition associated with female genital organs and menstrual cycle
CPT/HCPCS: 87086; 87210

== ENCOUNTER → 2025-11-08 10:08 | Outpatient (CLI) | payer MEDICARE, OTHER, SELFPAY ==
[2025-05-18 18:16] VITALS: BMI 21.9
--- NOTE | 2025-11-08 10:11 | DI.ECHO.S_ITS ---
[facility] : : [address] : : [place] : : [id number] : : Phone: [phone] Echocardiogram Report + + :Name: SKYLER RIVAS Study Date: 11/08/2025 Height: 65 in : :[facility] ReadingLocation: Weight: 135 lb : : Gender: Female BSA: 1.7 m2 : :: 1945 Age: 80 yrs BP: 179/98 mmHg: :Reason For Study: ATRIAL FLUTTER : :Ordering Physician: JERALD, : :CINTIA Performed By: Oswald Robles : :Referring: CINTIA MARQUES : + + Interpretation Summary Normal sinus rhythm; uncontrolled hypertension during exam with bp 179/98 mm Hg. Normal LV size and wall thickness; normal wall motion and LV systolic function. EF is 55-60%. Moderate LA enlargement; otherwise normal chamber sizes. Mild mitral regurgitation; otherwise no significant valve abnormalities. Compared to prior echo 08/01/2024, no changes have occurred. Procedure: A two-dimensional transthoracic echocardiogram with color flow and Doppler was performed. The study quality was technically good. Comparison is made with the echocardiogram of 08/01/2024. The patient was in normal sinus rhythm during the exam. Left Ventricle: The left ventricle is normal in size. There is normal left ventricular wall thickness. Proximal septal thickening is noted. There is no ventricular septal defect visualized. The ejection fraction is estimated to be 55-60%. There are no focal wall motion abnormalities. Diastolic parameters suggest probable normal left ventricular diastolic function and normal filling pressures. Right Ventricle: The right ventricle is normal in size and function. Atria: The left atrium is moderately dilated. Right atrial size is normal. There is no Doppler evidence for an interatrial shunt. The interatrial septum bows toward right atrium consistent with elevated left atrial pressure. Mitral Valve: The mitral valve leaflets appear normal. There is no evidence of stenosis, fluttering, or prolapse. There is mild mitral regurgitation. Aortic Valve: The aortic valve is trileaflet. The aortic valve opens well. No aortic regurgitation is present. Tricuspid Valve: The tricuspid valve leaflets are thin and pliable. There is mild tricuspid regurgitation. Pulmonic Valve: The pulmonic valve is not well seen, but is grossly normal. There is no pulmonic valvular regurgitation. Great Vessels: The aortic root is normal size. The dimensions of the ascending aorta are normal. The pulmonary artery is not well visualized, but is probably normal size. The IVC is of normal diameter and collapses greater than 50% with a sniff. This suggests a low right atrial pressure of 3 mm Hg. Pericardium/ Pleura There is no pericardial effusion. There is no pleural effusion. MMode/2D Measurements & Calculations LVIDd: 5.1 cm LVOT diam: 2.0 cm LVIDs: 2.9 cm Ao root diam: 3.0 cm FS: 43.7 % asc Aorta Diam: 3.0 cm EPSS: 0.43 cm IVSd: 0.99 cm LVPWd: 0.94 cm LV ortega. diameter/BSA (cm/m^2): 3.1 LV sys. diameter/BSA (cm/m^2): 1.7 LA A2 area: 29.5 cm2 RA long axis: 5.6 cm LA A4 area: 22.2 cm2 RA area: 13.5 cm2 LA length (vol): 5.5 cm RA vol: 27.9 ml LA vol: 101.5 ml RA : 16.7 ml/m2 LA vol index: 60.6 ml/m2 IVC diam: 2.1 cm RVD1 (basal): 3.6 cm RVD2 (mid): 2.3 cm TAPSE: 2.6 cm Doppler Measurements & Calculations Ao V2 max: 136.2 cm/sec LVOT Max Gildardo: 90.4 cm/sec Ao V2 mean: 94.8 cm/sec LV V1 max P.3 mmHg Ao max P.4 mmHg LV V1 VTI: 21.3 cm Ao mean P.9 mmHg WENDY(I,D): 2.0 cm2 Ao V2 VTI: 33.2 cm WENDY(V,D): 2.0 cm2 sev ratio: 0.64 WENDY indexed to BSA (cm^2/m^2): 1.2 MV E max gildardo: 92.1 cm/sec TR max gildardo: 292.5 cm/sec MV A max gildardo: 65.4 cm/sec TR max P.2 mmHg MV E/A: 1.4 PA V2 max: 96.1 cm/sec Med Peak E' Gildardo: 6.5 cm/sec PA V2 mean: 63.8 cm/sec E/E' med: 14.2 PA mean P.8 mmHg Lat Peak E' Gildardo: 7.7 cm/sec PA pr(Accel): 63.6 mmHg E/E' lat: 12.0 E/e' average: 13.1 MV dec time: 0.14 sec SV(LVOT): 65.8 ml Electronically signed by: Daxa Chavez M.D. on [place] Physician:11/09/2025 12:12 AM
--- NOTE | 2025-11-08 10:11 | DI.US.S_ITS ---
PROCEDURE: US HERNIA INDICATIONS: LEFT GROIN LUMP TECHNIQUE: Real-time focused scanning was performed of the inguinal region, with image documentation. COMPARISON: None. FINDINGS: Small fascial defect in the medial left inguinal region measuring about 1.1 cm maximally. Through this, there is protrusion of the mesenteric fat, accentuated with Valsalva maneuver. No herniated fluid or bowel. This is partially reducible at rest and with transducer pressure. IMPRESSION: Left inguinal hernia containing fat. Dictated by: Helena Wood M.D. on 11/08/2025 at 15:51 Approved by: Helena Wood M.D. on 11/08/2025 at 15:52
== END ==
LOC: ECHO 10:10
PROVIDERS: PCP Family Medicine; Referring Provider Family Medicine; Visit Provider Family Medicine
DX: I08.1 Rheumatic disorders of both mitral and tricuspid valves (principal); I47.10 Supraventricular tachycardia, unspecified; I49.1 Atrial premature depolarization; I49.3 Ventricular premature depolarization; K40.90 Unilateral inguinal hernia, without obstruction or gangrene, not specified as recurrent; R22.2 Localized swelling, mass and lump, trunk; I12.9 Hypertensive chronic kidney disease with stage 1 through stage 4 chronic kidney disease, or unspecified chronic kidney disease; N18.31 Chronic kidney disease, stage 3a; E03.9 Hypothyroidism, unspecified
CPT/HCPCS: 76705; 93306